=== PATIENT | male | born 1940 | race African-American/Black ===

== ENCOUNTER 2016-07-04 08:50 | Emergency (ER) | payer MEDICARE, MEDICAID ==
[~2016-07-04] VITALS: Ht 177.8 cm; Wt 80.0 kg
[~2016-07-04 08:50] MED LIST: CITA10TA9 PO; FAMO20TA8 PO; GALANTAMINE PO; GLIM2TAB2 PO; HYDR100T26 PO; LEVE500T19 PO; LOSA50TA20 PO; MEMA10TA11 PO; METO-293 PO; NIFE60TA64 PO; PLAVIX PO; RENAVITE PO; ZOLP5TAB8 PO
[2016-07-04] MEDS ORDERED: TETANUS, DIPHTHERIA, PERTUSSIS VAC/PF 0.5ML (>7YR OLD) IM ONE (09:15)
[2016-07-04 09:46] LABS: HEMATOCRIT. 34.6 % (42.0-52.0); HEMOGLOBIN. 11.5 g/dL (14.0-18.0); MEAN CORPUSCULAR HEMOGLOBIN 29.4 pg (28.0-32.0); MEAN CORPUSCULAR HGB CONC 33.2 g/dL (31.0-37.0); MEAN CORPUSCULAR VOLUME 88.3 fL (80.0-94.0); MEAN PLATELET VOLUME 8.2 fl (7.4-10.4); PLATELET 253 x1000/uL (130-400); RED BLOOD CELL COUNT 3.92 mill/uL (4.7-6.1); RED CELL DISTRIBUTION WIDTH 20.6 % (11.6-14.6)
[2016-07-04 09:51] LABS: INR 1.1; PROTHROMBIN TIME 11.9 sec
[2016-07-04 09:53] LABS: DIFFERENTIAL COMMENT 1
[2016-07-04 09:59] LABS: ALANINE AMINOTRANSFERASE 14 IU/L (13-61); ALBUMIN 3.6 g/dL (3.4-5.0); ANION GAP 19; CALCIUM 8.7 mg/dL (8.5-10.1); CARBON DIOXIDE 27 mEq/L (21-32); CHLORIDE 95 mEq/L (98-107); INDEX HEMOLYSI 4 (1-3); INDEX ICTERIC 1 (1-4); INDEX LIPEMIC 1 (1-3); UREA NITROGEN BLOOD 62 mg/dL (7-21); eGFR 8 mL/min (>60)
[2016-07-04 10:00] LABS: NT PRO B-TYPE NATRIURETIC PEP 3551 pg/mL (5-125); TROPONIN I 0.04 ng/mL (0.00-0.04)
[2016-07-04 10:28] LABS: ANISOCYTOSIS 2+; PLATELET ESTIMATE NORMAL
[2016-07-04 12:54] VITALS: BP 186/100
== END 2016-07-04 13:00 | disposition home or self-care (01) ==
LOC: ER 08:53
DX: S01.112A Laceration without foreign body of left eyelid and periocular area, initial encounter (principal); N18.6 End stage renal disease; I12.0 Hypertensive chronic kidney disease with stage 5 chronic kidney disease or end stage renal disease; E11.9 Type 2 diabetes mellitus without complications; J44.9 Chronic obstructive pulmonary disease, unspecified; Z86.73 Personal history of transient ischemic attack (TIA), and cerebral infarction without residual deficits; Z79.899 Other long term (current) drug therapy; Z99.2 Dependence on renal dialysis; W18.30XA Fall on same level, unspecified, initial encounter; Y93.89 Activity, other specified; Y99.8 Other external cause status; Y92.89 Other specified places as the place of occurrence of the external cause
CPT/HCPCS: 36415; 70450; 71010; 72125; 80053; 83880; 84484; 85025; 85610; 90471; 90715; 93005; 99285

== ENCOUNTER 2016-11-27 16:12 | Inpatient (IN) | payer MEDICARE, MEDICAID ==
[~2016-11-27] VITALS: Ht 188 cm; Wt 83.5 kg
[~2016-11-27 16:12] MED LIST changes: -MEMA10TA11 PO; +MEMA10TA2 PO
[2016-11-27 18:00] LABS: BASOPHILS % 1.2 % (0.0-2.0); EOSINOPHILS % 0.5 % (0.0-5.0); HEMATOCRIT. 33.7 % (42.0-52.0); HEMOGLOBIN. 11.3 g/dL (14.0-18.0); LYMPHOCYTES % 34.8 % (20.0-50.0); MEAN CORPUSCULAR HEMOGLOBIN 31.3 pg (28.0-32.0); MEAN CORPUSCULAR VOLUME 93.2 fL (80.0-94.0); MEAN PLATELET VOLUME 8.6 fl (7.4-10.4); MONOCYTES % 8.6 % (2.0-8.0); NEUTROPHILS % 54.9 % (40.0-76.0); PLATELET 234 x1000/uL (130-400); RED BLOOD CELL COUNT 3.62 mill/uL (4.7-6.1); RED CELL DISTRIBUTION WIDTH 20.5 % (11.6-14.6)
[2016-11-27 18:02] LABS: INR 1.3; PROTHROMBIN TIME 13.4 sec (9.4-11.6)
[2016-11-27 18:10] LABS: CARBON DIOXIDE 29 mEq/L (21-32); CHLORIDE 98 mEq/L (98-107)
[2016-11-27] MEDS ORDERED: HYDRALAZINE 20MG/ML VIAL IV ONE ×2 (18:45→21:30)
[2016-11-27 20:46] LABS: TROPONIN I 0.06 ng/mL (0.00-0.04)
[2016-11-27] MEDS ORDERED: AZITHROMYCIN 500 MG in DEXT 5% WATER 250 ML IV STA (21:20)
[2016-11-27] MEDS ORDERED: FUROSEMIDE 20MG/2ML VIAL IVP ONE (21:30)
[2016-11-27] MEDS ORDERED: CEFTRIAXONE 1 G PREMIX 50 ML IV ONE (21:30)
[2016-11-27] MEDS ORDERED: HYDROMORPHONE HCL/PF 2MG/ML CPJ IV PRN (22:45)
[2016-11-27] MEDS ORDERED: DOCUSATE SODIUM 100MG CAPSULE PO PRN (22:45)
[2016-11-27] MEDS ORDERED: NITROGLYCERIN OINT 1GM/INCH UDPKT TD ONE (22:45)
[2016-11-27] MEDS ORDERED: ACETAMINOPHEN 325MG TABLET PO PRN (22:45)
[2016-11-27] MEDS ORDERED: GUAIFENESIN 200MG/10ML SUGAR FREE UDC PO PRN (22:45)
[2016-11-27] MEDS: NITROGLYCERIN 0.4MG TABLET SL SL PRN ×2 (23:01→23:16)
[2016-11-27] MEDS ORDERED: ONDANSETRON HCL 4MG/2ML VIAL IV ONE (23:45)
[2016-11-28] VITALS (91 sets, daily range): BP systolic 99–251; BP diastolic 53–224
[2016-11-28 00:25] LABS: CLARITY URINE CLEAR (CLEAR); COLOR URINE YELLOW (YELLOW); GLUCOSE URINE NEGATIVE (NEGATIVE); KETONES URINE NEGATIVE (NEGATIVE); LEUKOCYTE ESTERASE URINE NEGATIVE (NEGATIVE); NITRITE URINE NEGATIVE (NEGATIVE); OCCULT BLOOD URINE NEGATIVE (NEGATIVE); PROTEIN URINE 3+ (NEGATIVE); SPECIFIC GRAVITY URINE 1.011 (1.005-1.030); UROBILINOGEN URINE 0.2 E.U./dL (0.2-1.0)
[2016-11-28] MEDS ORDERED: CITA10SO PO (00:26)
[2016-11-28] MEDS ORDERED: CITA10TA9 PO (00:26)
[2016-11-28] MEDS ORDERED: ZOLP5TAB8 PO (00:26)
[2016-11-28] MEDS ORDERED: NEBI10TA2 PO (00:26)
[2016-11-28 00:44] LABS: *AMPHETAMINES SCREEN URINE NEGATIVE (NEGATIVE); *BARBITURATES SCREEN URINE NEGATIVE (NEGATIVE); *BENZODIAZEPINES SCREEN URINE NEGATIVE (NEGATIVE); *COCAINE SCREEN URINE NEGATIVE (NEGATIVE); CANNABINOID URINE SCREEN PRESUMTIVE POSITIVE (NEGATIVE); METHADONE URINE SCREEN NEGATIVE (NEGATIVE); OPIATES URINE SCREEN NEGATIVE (NEGATIVE); PHENCYCLIDINE URINE SCREEN NEGATIVE (NEGATIVE)
[2016-11-28] MEDS ORDERED: LABETALOL 5MG/ML SYR 20 MG/4 ML SYRINGE IV SCH ×3 (01:00→01:30)
[2016-11-28] MEDS ORDERED: NITROPRUSSIDE 50 MG in DEXT 5% WATER 250 ML IV PRN (01:00)
[2016-11-28] MEDS: ONDANSETRON HCL 4MG/2ML VIAL IV PRN ×2 (01:33→08:02)
[2016-11-28] MEDS: NICARDIPINE 100 MG in SODIUM CHLORIDE 0.9% 60 ML IV PRN ×2 (01:54→13:05)
[2016-11-28] MEDS: LORAZEPAM 2MG/ML CPJ IV PRN ×3 (02:10→22:24)
[2016-11-28] MEDS ORDERED: VANCOMYCIN 1 G PREMIX 200 ML IV SCH (03:00)
[2016-11-28] MEDS: BLOOD SUGAR DIAGNOSTIC STRIP TEST SCH ×4 (05:43→21:34)
[2016-11-28 05:45] LABS: HEMATOCRIT. 31.2 % (42.0-52.0); HEMOGLOBIN. 10.6 g/dL (14.0-18.0); MEAN CORPUSCULAR HEMOGLOBIN 31.5 pg (28.0-32.0); MEAN CORPUSCULAR VOLUME 92.5 fL (80.0-94.0); MEAN PLATELET VOLUME 8.8 fl (7.4-10.4); PLATELET 226 x1000/uL (130-400); RED BLOOD CELL COUNT 3.38 mill/uL (4.7-6.1); RED CELL DISTRIBUTION WIDTH 19.8 % (11.6-14.6)
[2016-11-28] MEDS: METOCLOPRAMIDE HCL 10MG TABLET PO SCH ×2 (06:19→20:07)
[2016-11-28] MEDS: INSULIN LISPRO 100 UNITS/ML SUBCUT SCH ×4 (06:20→21:00)
[2016-11-28 06:58] LABS: TROPONIN I 0.05 ng/mL (0.00-0.04)
[2016-11-28 07:00] LABS: CREATINE KINASE MB FRACTION 2.6 ng/mL (0.5-3.6)
[2016-11-28 07:35] LABS: NUCLEATED RED BLOOD CELLS 2 /100 WBC; PLATELET ESTIMATE NORMAL
[2016-11-28] MEDS ORDERED: POTASSIUM CHLORIDE 20MEQ TABLET SR PO NR (07:45)
[2016-11-28] MEDS: NIFEDIPINE XL 60MG TAB PO SCH ×2 (08:03→08:09)
[2016-11-28] MEDS: LOSARTAN POTASSIUM 100 MG TABLET PO SCH ×2 (08:03→08:09)
[2016-11-28] MEDS: CLOPIDOGREL 75MG TABLET PO SCH (08:03)
[2016-11-28] MEDS: MEMANTINE HCL 5MG TABLET PO SCH (08:04)
[2016-11-28] MEDS: FAMOTIDINE 20MG TABLET PO SCH (08:04)
[2016-11-28] MEDS: HYDRALAZINE HCL 50MG TABLET PO SCH ×3 (08:30→22:06)
[2016-11-28] MEDS ORDERED: GLIMEPIRIDE 2MG TABLET PO NR (08:30)
[2016-11-28] MEDS: LEVETIRACETAM 500MG TABLET PO SCH ×2 (08:45→20:07)
[2016-11-28] MEDS: METOPROLOL TARTRATE 100MG TABLET PO SCH ×2 (08:45→20:08)
[2016-11-28] MEDS: GALANTAMINE HBR 8MG ER CAPSULE 24HR PO SCH (09:00)
[2016-11-28] MEDS ORDERED: LEVETIRACETAM 500MG TABLET PO SCH (09:00)
[2016-11-28] MEDS ORDERED: ENOXAPARIN 40MG/0.4ML SYR SUBCUT SCH (09:00)
[2016-11-28] MEDS ORDERED: GLIMEPIRIDE 2MG TABLET PO SCH (09:00)
[2016-11-28] MEDS: CITALOPRAM HYDROBROMIDE 10MG TABLET PO SCH (09:18)
[2016-11-28] MEDS ORDERED: VANCOMYCIN 1 G PREMIX 200 ML IV NR (17:00)
[2016-11-28] MEDS ORDERED: CEFTRIAXONE 1 G PREMIX 50 ML IV SCH (20:00)
[2016-11-28] MEDS: CEFTRIAXONE 1 G PREMIX 50 ML IV SCH (20:08)
[2016-11-28 21:14] LABS: CREATINE KINASE MB FRACTION 3.9 ng/mL (0.5-3.6); TROPONIN I 0.1 ng/mL (0.00-0.04)
[2016-11-28] MEDS: AZITHROMYCIN 500 MG in DEXT 5% WATER 250 ML IV SCH (21:35)
[2016-11-28] MEDS ORDERED: AZITHROMYCIN 500 MG in DEXT 5% WATER 250 ML IV SCH (23:00)
[2016-11-29] VITALS (96 sets, daily range): BP systolic 93–157; BP diastolic 48–117
[2016-11-29] MEDS: NICARDIPINE 100 MG in SODIUM CHLORIDE 0.9% 60 ML IV PRN (01:29)
[2016-11-29] MEDS: HYDRALAZINE HCL 50MG TABLET PO SCH (05:06)
[2016-11-29] MEDS: GLIMEPIRIDE 4MG TABLET PO SCH (06:05)
[2016-11-29] MEDS: BLOOD SUGAR DIAGNOSTIC STRIP TEST SCH ×4 (06:06→20:50)
[2016-11-29] MEDS: METOCLOPRAMIDE HCL 10MG TABLET PO SCH ×2 (06:06→20:39)
[2016-11-29] MEDS: INSULIN LISPRO 100 UNITS/ML SUBCUT SCH ×4 (06:06→20:51)
[2016-11-29 06:10] LABS: BASOPHILS % 0.3 % (0.0-2.0); EOSINOPHILS % 0.1 % (0.0-5.0); HEMATOCRIT. 33.5 % (42.0-52.0); HEMOGLOBIN. 11.1 g/dL (14.0-18.0); LYMPHOCYTES % 17.5 % (20.0-50.0); MEAN CORPUSCULAR VOLUME 93.5 fL (80.0-94.0); MEAN PLATELET VOLUME 8.9 fl (7.4-10.4); MONOCYTES % 7.2 % (2.0-8.0); NEUTROPHILS % 74.9 % (40.0-76.0); PLATELET 243 x1000/uL (130-400); RED BLOOD CELL COUNT 3.59 mill/uL (4.7-6.1)
[2016-11-29 06:42] LABS: PHOSPHORUS 2.3 mg/dL (2.5-4.9)
[2016-11-29] MEDS: ENOXAPARIN 30MG/0.3ML SYR SUBCUT SCH (08:08)
[2016-11-29] MEDS: METOPROLOL TARTRATE 100MG TABLET PO SCH ×2 (08:09→20:39)
[2016-11-29] MEDS: MEMANTINE HCL 5MG TABLET PO SCH (08:09)
[2016-11-29] MEDS: CITALOPRAM HYDROBROMIDE 10MG TABLET PO SCH (08:09)
[2016-11-29] MEDS: CLOPIDOGREL 75MG TABLET PO SCH (08:09)
[2016-11-29] MEDS: LOSARTAN POTASSIUM 100 MG TABLET PO SCH (08:10)
[2016-11-29] MEDS: LEVETIRACETAM 500MG TABLET PO SCH ×2 (08:10→21:39)
[2016-11-29] MEDS: FAMOTIDINE 20MG TABLET PO SCH (08:10)
[2016-11-29] MEDS: NIFEDIPINE XL 60MG TAB PO SCH (08:10)
[2016-11-29] MEDS ORDERED: LORAZEPAM 2MG/ML CPJ IV PRN (09:00)
[2016-11-29] MEDS ORDERED: NIFEDIPINE XL 30MG TAB PO NR (09:30)
[2016-11-29] MEDS: QUETIAPINE FUMARATE 25MG TABLET PO SCH ×2 (09:59→21:39)
[2016-11-29] MEDS: GALANTAMINE HBR 8MG ER CAPSULE 24HR PO SCH (10:41)
[2016-11-29 12:16] LABS: AMMONIA 27 uMol/L (<32)
[2016-11-29] MEDS: HYDRALAZINE HCL 100MG TABLET PO SCH ×2 (13:48→21:40)
[2016-11-29] MEDS: CEFTRIAXONE 1 G PREMIX 50 ML IV SCH (20:40)
[2016-11-29] MEDS: AZITHROMYCIN 500 MG in DEXT 5% WATER 250 ML IV SCH (21:40)
[2016-11-30] VITALS (45 sets, daily range): BP systolic 107–178; BP diastolic 58–90
[2016-11-30] MEDS: BLOOD SUGAR DIAGNOSTIC STRIP TEST SCH ×5 (05:30→20:44)
[2016-11-30 05:56] LABS: BASOPHILS % 0.8 % (0.0-2.0); EOSINOPHILS % 0.6 % (0.0-5.0); HEMATOCRIT. 36.2 % (42.0-52.0); LYMPHOCYTES % 26.4 % (20.0-50.0); MEAN CORPUSCULAR VOLUME 93.4 fL (80.0-94.0); MEAN PLATELET VOLUME 9.1 fl (7.4-10.4); MONOCYTES % 8.6 % (2.0-8.0); NEUTROPHILS % 63.6 % (40.0-76.0); PLATELET 275 x1000/uL (130-400); RED BLOOD CELL COUNT 3.87 mill/uL (4.7-6.1)
[2016-11-30] MEDS: METOCLOPRAMIDE HCL 10MG TABLET PO SCH ×2 (06:22→20:43)
[2016-11-30] MEDS: HYDRALAZINE HCL 100MG TABLET PO SCH ×3 (06:22→21:09)
[2016-11-30] MEDS: INSULIN LISPRO 100 UNITS/ML SUBCUT SCH ×4 (06:29→20:44)
[2016-11-30] MEDS: GLIMEPIRIDE 4MG TABLET PO SCH (07:21)
[2016-11-30] MEDS: LEVETIRACETAM 500MG TABLET PO SCH ×2 (08:03→20:43)
[2016-11-30] MEDS: ENOXAPARIN 30MG/0.3ML SYR SUBCUT SCH (08:03)
[2016-11-30] MEDS: MEMANTINE HCL 5MG TABLET PO SCH (08:04)
[2016-11-30] MEDS: QUETIAPINE FUMARATE 25MG TABLET PO SCH ×2 (08:04→20:43)
[2016-11-30] MEDS: FAMOTIDINE 20MG TABLET PO SCH (08:04)
[2016-11-30] MEDS: CITALOPRAM HYDROBROMIDE 10MG TABLET PO SCH (08:04)
[2016-11-30] MEDS: CLOPIDOGREL 75MG TABLET PO SCH (08:04)
[2016-11-30] MEDS: METOPROLOL TARTRATE 100MG TABLET PO SCH ×2 (09:00→20:43)
[2016-11-30] MEDS: NIFEDIPINE XL 90MG TAB PO SCH (09:00)
[2016-11-30] MEDS: LOSARTAN POTASSIUM 100 MG TABLET PO SCH (09:00)
[2016-11-30] MEDS: GALANTAMINE HBR 8MG ER CAPSULE 24HR PO SCH (15:37)
[2016-11-30] MEDS ORDERED: VANCOMYCIN 500 MG PREMIX 100 ML IV NR (17:00)
[2016-11-30] MEDS: CLONIDINE 0.1MG TABLET PO PRN (20:43)
[2016-11-30] MEDS: AZITHROMYCIN 500 MG in DEXT 5% WATER 250 ML IV SCH (20:56)
[2016-11-30] MEDS: CEFTRIAXONE 1 G PREMIX 50 ML IV SCH (21:10)
[2016-12-01] VITALS (8 sets, daily range): BP systolic 125–215; BP diastolic 64–102
[2016-12-01] MEDS: HYDRALAZINE HCL 100MG TABLET PO SCH ×3 (06:05→20:32)
[2016-12-01] MEDS: DEXTROSE 50% WATER 50ML SYRINGE IV PRN (06:06)
[2016-12-01 06:54] LABS: BASOPHILS % 0.6 % (0.0-2.0); EOSINOPHILS % 0.7 % (0.0-5.0); HEMATOCRIT. 37.9 % (42.0-52.0); HEMOGLOBIN. 12.7 g/dL (14.0-18.0); LYMPHOCYTES % 24.4 % (20.0-50.0); MEAN CORPUSCULAR HEMOGLOBIN 31.4 pg (28.0-32.0); MEAN CORPUSCULAR VOLUME 93.9 fL (80.0-94.0); MEAN PLATELET VOLUME 8.1 fl (7.4-10.4); MONOCYTES % 12.6 % (2.0-8.0); NEUTROPHILS % 61.7 % (40.0-76.0); PLATELET 245 x1000/uL (130-400); RED BLOOD CELL COUNT 4.04 mill/uL (4.7-6.1); RED CELL DISTRIBUTION WIDTH 21.9 % (11.6-14.6)
[2016-12-01] MEDS ORDERED: GLIMEPIRIDE 2MG TABLET PO SCH (07:00)
[2016-12-01] MEDS: BLOOD SUGAR DIAGNOSTIC STRIP TEST SCH ×4 (07:40→20:32)
[2016-12-01] MEDS: INSULIN LISPRO 100 UNITS/ML SUBCUT SCH ×4 (07:40→20:32)
[2016-12-01] MEDS: LOSARTAN POTASSIUM 100 MG TABLET PO SCH (08:19)
[2016-12-01] MEDS: NIFEDIPINE XL 90MG TAB PO SCH (08:19)
[2016-12-01] MEDS: FAMOTIDINE 20MG TABLET PO SCH (08:19)
[2016-12-01] MEDS: METOCLOPRAMIDE HCL 10MG TABLET PO SCH ×2 (08:20→20:28)
[2016-12-01] MEDS: CLOPIDOGREL 75MG TABLET PO SCH (08:20)
[2016-12-01] MEDS: QUETIAPINE FUMARATE 25MG TABLET PO SCH ×2 (08:20→20:29)
[2016-12-01] MEDS: LEVETIRACETAM 500MG TABLET PO SCH ×2 (08:20→20:28)
[2016-12-01] MEDS: METOPROLOL TARTRATE 100MG TABLET PO SCH ×2 (08:20→20:29)
[2016-12-01] MEDS: ENOXAPARIN 30MG/0.3ML SYR SUBCUT SCH (08:21)
[2016-12-01] MEDS: GALANTAMINE HBR 8MG ER CAPSULE 24HR PO SCH (08:26)
[2016-12-01] MEDS: CITALOPRAM HYDROBROMIDE 10MG TABLET PO SCH (08:26)
[2016-12-01] MEDS: MEMANTINE HCL 5MG TABLET PO SCH (12:24)
[2016-12-01] MEDS: CEFTRIAXONE 1 G PREMIX 50 ML IV SCH (20:28)
[2016-12-01] MEDS: ZOLPIDEM TARTRATE 5MG TABLET PO SCH (20:35)
[2016-12-01] MEDS: AZITHROMYCIN 500 MG in DEXT 5% WATER 250 ML IV SCH (21:13)
[2016-12-02] VITALS: BP 115/59
[2016-12-02] MEDS: DEXTROSE 50% WATER 50ML SYRINGE IV PRN (02:43)
[2016-12-02 04:00] VITALS: BP 177/79
[2016-12-02] MEDS: HYDRALAZINE HCL 100MG TABLET PO SCH ×3 (05:51→20:20)
[2016-12-02] MEDS: BLOOD SUGAR DIAGNOSTIC STRIP TEST SCH ×4 (05:51→20:21)
[2016-12-02] MEDS: INSULIN LISPRO 100 UNITS/ML SUBCUT SCH ×4 (07:15→20:21)
[2016-12-02 07:25] LABS: EOSINOPHILS % 3.3 % (0.0-5.0); HEMATOCRIT. 37.3 % (42.0-52.0); HEMOGLOBIN. 12.4 g/dL (14.0-18.0); LYMPHOCYTES % 31.4 % (20.0-50.0); MEAN CORPUSCULAR HEMOGLOBIN 31.5 pg (28.0-32.0); MEAN CORPUSCULAR VOLUME 94.6 fL (80.0-94.0); MEAN PLATELET VOLUME 8.1 fl (7.4-10.4); MONOCYTES % 11.4 % (2.0-8.0); NEUTROPHILS % 52.9 % (40.0-76.0); PLATELET 226 x1000/uL (130-400); RED BLOOD CELL COUNT 3.95 mill/uL (4.7-6.1); RED CELL DISTRIBUTION WIDTH 21.5 % (11.6-14.6)
[2016-12-02 08:00] VITALS: BP 163/77
[2016-12-02] MEDS: QUETIAPINE FUMARATE 25MG TABLET PO SCH ×2 (08:31→20:20)
[2016-12-02] MEDS: CLOPIDOGREL 75MG TABLET PO SCH (08:31)
[2016-12-02] MEDS: METOCLOPRAMIDE HCL 10MG TABLET PO SCH ×2 (08:31→20:20)
[2016-12-02] MEDS: LEVETIRACETAM 500MG TABLET PO SCH ×2 (08:31→20:20)
[2016-12-02] MEDS: GLIMEPIRIDE 1MG TABLET PO SCH (08:32)
[2016-12-02] MEDS: NIFEDIPINE XL 90MG TAB PO SCH (08:32)
[2016-12-02] MEDS: MEMANTINE HCL 5MG TABLET PO SCH (08:33)
[2016-12-02] MEDS: LOSARTAN POTASSIUM 100 MG TABLET PO SCH (08:44)
[2016-12-02] MEDS: METOPROLOL TARTRATE 100MG TABLET PO SCH ×2 (08:44→20:20)
[2016-12-02] MEDS: ENOXAPARIN 30MG/0.3ML SYR SUBCUT SCH (08:49)
[2016-12-02] MEDS: CITALOPRAM HYDROBROMIDE 10MG TABLET PO SCH (10:02)
[2016-12-02] MEDS: GALANTAMINE HBR 8MG ER CAPSULE 24HR PO SCH (10:02)
[2016-12-02] MEDS: FAMOTIDINE 20MG TABLET PO SCH (10:02)
[2016-12-02] MEDS: AZITHROMYCIN 500 MG TABLET PO SCH (10:02)
[2016-12-02 12:00] VITALS: BP 130/70
[2016-12-02 16:00] VITALS: BP 122/68
[2016-12-02] MEDS ORDERED: VANCOMYCIN 1 G PREMIX 200 ML IV NR (17:00)
[2016-12-02] MEDS: ZOLPIDEM TARTRATE 5MG TABLET PO SCH (17:00)
[2016-12-02 20:00] VITALS: BP 164/69
[2016-12-02] MEDS: CEFTRIAXONE 1 G PREMIX 50 ML IV SCH (20:20)
[2016-12-03] VITALS: BP 146/70
[2016-12-03 04:00] VITALS: BP 152/69
[2016-12-03] MEDS: HYDRALAZINE HCL 100MG TABLET PO SCH ×2 (06:13→14:21)
[2016-12-03 07:39] LABS: BASOPHILS % 0.8 % (0.0-2.0); EOSINOPHILS % 3.6 % (0.0-5.0); HEMATOCRIT. 36.9 % (42.0-52.0); HEMOGLOBIN. 12.3 g/dL (14.0-18.0); LYMPHOCYTES % 30.2 % (20.0-50.0); MEAN CORPUSCULAR HEMOGLOBIN 31.5 pg (28.0-32.0); MEAN CORPUSCULAR VOLUME 94.7 fL (80.0-94.0); MONOCYTES % 11.9 % (2.0-8.0); NEUTROPHILS % 53.5 % (40.0-76.0); PLATELET 188 x1000/uL (130-400); RED CELL DISTRIBUTION WIDTH 21.6 % (11.6-14.6)
[2016-12-03] MEDS: INSULIN LISPRO 100 UNITS/ML SUBCUT SCH ×2 (07:56→13:10)
[2016-12-03] MEDS: BLOOD SUGAR DIAGNOSTIC STRIP TEST SCH ×2 (07:56→12:40)
[2016-12-03 08:00] VITALS: BP 144/66
[2016-12-03] MEDS: CLOPIDOGREL 75MG TABLET PO SCH (10:17)
[2016-12-03] MEDS: GALANTAMINE HBR 8MG ER CAPSULE 24HR PO SCH (10:18)
[2016-12-03] MEDS: LEVETIRACETAM 500MG TABLET PO SCH (10:18)
[2016-12-03] MEDS: MEMANTINE HCL 5MG TABLET PO SCH (10:18)
[2016-12-03] MEDS: FAMOTIDINE 20MG TABLET PO SCH (10:18)
[2016-12-03] MEDS: METOPROLOL TARTRATE 100MG TABLET PO SCH (10:18)
[2016-12-03] MEDS: METOCLOPRAMIDE HCL 10MG TABLET PO SCH (10:18)
[2016-12-03] MEDS: NIFEDIPINE XL 90MG TAB PO SCH (10:19)
[2016-12-03] MEDS: GLIMEPIRIDE 1MG TABLET PO SCH (10:19)
[2016-12-03] MEDS: QUETIAPINE FUMARATE 25MG TABLET PO SCH (10:19)
[2016-12-03] MEDS: AZITHROMYCIN 500 MG TABLET PO SCH (10:20)
[2016-12-03] MEDS: CITALOPRAM HYDROBROMIDE 10MG TABLET PO SCH (10:20)
[2016-12-03] MEDS: LOSARTAN POTASSIUM 100 MG TABLET PO SCH (10:20)
[2016-12-03] MEDS: ENOXAPARIN 30MG/0.3ML SYR SUBCUT SCH (10:23)
[2016-12-03 12:00] VITALS: BP 161/76
[2016-12-03] MEDS: CLONIDINE 0.1MG TABLET PO PRN (14:21)
[2016-12-03] MEDS ORDERED: DOCUSATE SODIUM 250MG CAPSULE PO PRN (15:08)
[2016-12-03 16:00] VITALS: BP 150/79
[2016-12-03 16:28] VITALS: BP 150/79
== END 2016-12-03 17:15 | disposition home or self-care (01) | DRG 177 ==
LOC: ER 16:48 → 6WST 22:12 → ENRESERV 22:33 → MICUSO 11-28 01:13 → 7WST 11-30 16:32
PROVIDERS: ADMIT Internal Medicine Geriatric Medicine; ATTEND Internal Medicine Geriatric Medicine
PROC: 5A1D60Z (ICD-10-PCS; principal; 2016-11-28)
DX: J69.0 Pneumonitis due to inhalation of food and vomit (principal); I50.23 Acute on chronic systolic (congestive) heart failure; G92 Toxic encephalopathy; N18.6 End stage renal disease; I13.2 Hypertensive heart and chronic kidney disease with heart failure and with stage 5 chronic kidney disease, or end stage renal disease; F01.51 Vascular dementia, unspecified severity, with behavioral disturbance; D63.8 Anemia in other chronic diseases classified elsewhere; E11.22 Type 2 diabetes mellitus with diabetic chronic kidney disease; E87.6 Hypokalemia; A08.4 Viral intestinal infection, unspecified; F12.90 Cannabis use, unspecified, uncomplicated; J44.9 Chronic obstructive pulmonary disease, unspecified; B95.62 Methicillin resistant Staphylococcus aureus infection as the cause of diseases classified elsewhere; F32.9 Major depressive disorder, single episode, unspecified; F41.1 Generalized anxiety disorder; I71.4 Abdominal aortic aneurysm, without rupture; K57.90 Diverticulosis of intestine, part unspecified, without perforation or abscess without bleeding; M19.90 Unspecified osteoarthritis, unspecified site; R63.0 Anorexia; E78.5 Hyperlipidemia, unspecified; G40.909 Epilepsy, unspecified, not intractable, without status epilepticus; I16.0 Hypertensive urgency; E11.49 Type 2 diabetes mellitus with other diabetic neurological complication; I25.10 Atherosclerotic heart disease of native coronary artery without angina pectoris; M81.0 Age-related osteoporosis without current pathological fracture; Z82.49 Family history of ischemic heart disease and other diseases of the circulatory system; Z86.19 Personal history of other infectious and parasitic diseases; Z87.01 Personal history of pneumonia (recurrent); Z99.2 Dependence on renal dialysis; Z87.440 Personal history of urinary (tract) infections
CPT/HCPCS: 36415; 70450; 71010; 80048; 80053; 80061; 80202; 80305; 81001; 82140; 82553; 82962; 83036; 83735; 83880; 84100; 84484; 85025; 85610; 87040; 87086; 87493; 92610; 93005; 93306; 93970; 96365; 96375; 96376; 97112; 97116; 97162; 97530; 99285; J0360; J0456; J0696; J1170; J1650; J1815; J1940; J2060; J2405; J3370; J3490; J7030; J7050; J7060; J8597

== ENCOUNTER 2016-12-27 12:50 | Inpatient (IN) | payer MEDICARE, MEDICAID ==
[~2016-12-27] VITALS: Ht 180.3 cm; Wt 83.7 kg
[~2016-12-27 12:50] MED LIST changes: +NEBI10TA2 PO
[2016-12-27] MEDS ORDERED: ONDANSETRON HCL 4MG/2ML VIAL IV STA (13:58)
[2016-12-27 14:26] LABS: BASOPHILS % 1.1 % (0.0-2.0); EOSINOPHILS % 0.7 % (0.0-5.0); HEMATOCRIT. 31.3 % (42.0-52.0); HEMOGLOBIN. 10.7 g/dL (14.0-18.0); LYMPHOCYTES % 22.2 % (20.0-50.0); MEAN CORPUSCULAR HEMOGLOBIN 32.7 pg (28.0-32.0); MEAN CORPUSCULAR VOLUME 95.1 fL (80.0-94.0); MEAN PLATELET VOLUME 8.3 fl (7.4-10.4); MONOCYTES % 10.5 % (2.0-8.0); NEUTROPHILS % 65.5 % (40.0-76.0); PLATELET 220 x1000/uL (130-400); RED BLOOD CELL COUNT 3.28 mill/uL (4.7-6.1)
[2016-12-27 14:28] LABS: CARBON DIOXIDE 29 mEq/L (21-32); CHLORIDE 99 mEq/L (98-107)
[2016-12-27 14:30] LABS: INR 1.2; PARTIAL THROMBOPLASTIN TIME 26.5 sec (23.4-31.0)
[2016-12-27 14:41] LABS: PHOSPHORUS 2.1 mg/dL (2.5-4.9)
[2016-12-27 14:43] LABS: TROPONIN I 0.07 ng/mL (0.00-0.04)
[2016-12-27] MEDS ORDERED: LABETALOL 5MG/ML SYR 20 MG/4 ML SYRINGE IV ONE (15:15)
[2016-12-27] MEDS ORDERED: POTASSIUM CHLORIDE 20MEQ TABLET SR PO ONE (17:00)
[2016-12-27] MEDS ORDERED: HYDRALAZINE 20MG/ML VIAL IV ONE (17:45)
[2016-12-27 20:35] VITALS: BP 212/84
[2016-12-27] MEDS ORDERED: HYDRALAZINE 20MG/ML VIAL IV PRN (21:45)
[2016-12-27] MEDS ORDERED: GUAIFENESIN 200MG/10ML SUGAR FREE UDC PO PRN (21:45)
[2016-12-27] MEDS ORDERED: DIPHENHYDRAMINE 50MG/ML VIAL IV PRN (21:45)
[2016-12-27] MEDS ORDERED: HYDROMORPHONE HCL/PF 2MG/ML CPJ IV PRN (21:45)
[2016-12-27] MEDS ORDERED: ACETAMINOPHEN 325MG TABLET PO PRN (21:45)
[2016-12-27] MEDS ORDERED: ONDANSETRON HCL 4MG/2ML VIAL IV PRN (21:45)
[2016-12-27] MEDS ORDERED: DOCUSATE SODIUM 100MG CAPSULE PO PRN (21:45)
[2016-12-27] MEDS: ENOXAPARIN 30MG/0.3ML SYR SUBCUT SCH (22:15)
[2016-12-27] MEDS: LEVETIRACETAM 500MG TABLET PO SCH (22:16)
[2016-12-27] MEDS: CLONIDINE 0.1MG TABLET PO PRN (22:16)
[2016-12-27] MEDS: HYDRALAZINE HCL 100MG TABLET PO SCH (22:16)
[2016-12-27] MEDS: ZOLPIDEM TARTRATE 5MG TABLET PO PRN (22:16)
[2016-12-28] VITALS (7 sets, daily range): BP systolic 104–212; BP diastolic 59–98
[2016-12-28] MEDS ORDERED: DEXTROSE 50% WATER 50ML SYRINGE IV PRN (00:15)
[2016-12-28 00:28] LABS: CREATINE KINASE MB FRACTION 1.3 ng/mL (0.5-3.6); TROPONIN I 0.09 ng/mL (0.00-0.04)
[2016-12-28] MEDS: METOCLOPRAMIDE HCL 5MG TABLET PO SCH ×4 (00:53→17:59)
[2016-12-28] MEDS: IPRATROPIUM/ALBUTEROL 0.5-3(2.5)MG/3ML NEB HHN SCH ×6 (00:55→20:54)
[2016-12-28] MEDS: HYDRALAZINE HCL 100MG TABLET PO SCH ×3 (06:00→22:00)
[2016-12-28] MEDS: BLOOD SUGAR DIAGNOSTIC STRIP TEST SCH ×4 (06:24→21:56)
[2016-12-28] MEDS: INSULIN LISPRO 100 UNITS/ML SUBCUT SCH ×4 (06:24→21:00)
[2016-12-28 06:43] LABS: BASOPHILS % 0.9 % (0.0-2.0); EOSINOPHILS % 1.7 % (0.0-5.0); HEMATOCRIT. 30.7 % (42.0-52.0); HEMOGLOBIN. 10.4 g/dL (14.0-18.0); LYMPHOCYTES % 38.7 % (20.0-50.0); MEAN CORPUSCULAR HEMOGLOBIN 32.3 pg (28.0-32.0); MEAN CORPUSCULAR VOLUME 95.3 fL (80.0-94.0); MEAN PLATELET VOLUME 8.6 fl (7.4-10.4); MONOCYTES % 11.4 % (2.0-8.0); NEUTROPHILS % 47.3 % (40.0-76.0); PLATELET 217 x1000/uL (130-400); RED BLOOD CELL COUNT 3.22 mill/uL (4.7-6.1); RED CELL DISTRIBUTION WIDTH 18.1 % (11.6-14.6)
[2016-12-28 07:05] LABS: CARBON DIOXIDE 30 mEq/L (21-32); CHLORIDE 100 mEq/L (98-107); CREATINE KINASE MB FRACTION 1.3 ng/mL (0.5-3.6); TROPONIN I 0.09 ng/mL (0.00-0.04)
[2016-12-28 07:23] LABS: CLARITY URINE CLEAR (CLEAR); COLOR URINE YELLOW (YELLOW); GLUCOSE URINE NEGATIVE (NEGATIVE); KETONES URINE NEGATIVE (NEGATIVE); LEUKOCYTE ESTERASE URINE NEGATIVE (NEGATIVE); NITRITE URINE NEGATIVE (NEGATIVE); OCCULT BLOOD URINE NEGATIVE (NEGATIVE); PH URINE 8.5 (4.5-8.0); PROTEIN URINE 3+ (NEGATIVE); SPECIFIC GRAVITY URINE 1.013 (1.005-1.030); UROBILINOGEN URINE 0.2 E.U./dL (0.2-1.0)
[2016-12-28 08:42] LABS: *AMPHETAMINES SCREEN URINE NEGATIVE (NEGATIVE); *BARBITURATES SCREEN URINE NEGATIVE (NEGATIVE); *BENZODIAZEPINES SCREEN URINE NEGATIVE (NEGATIVE); *COCAINE SCREEN URINE NEGATIVE (NEGATIVE); CANNABINOID URINE SCREEN PRESUMTIVE POSITIVE (NEGATIVE); METHADONE URINE SCREEN NEGATIVE (NEGATIVE); OPIATES URINE SCREEN NEGATIVE (NEGATIVE); PHENCYCLIDINE URINE SCREEN NEGATIVE (NEGATIVE)
[2016-12-28] MEDS ORDERED: POTASSIUM CHLORIDE 20MEQ TABLET SR PO NR (10:45)
[2016-12-28] MEDS: SEVELAMER CARBONATE 800 MG TABLET PO SCH ×3 (10:47→17:59)
[2016-12-28] MEDS: LOSARTAN POTASSIUM 50 MG TABLET PO SCH (10:48)
[2016-12-28] MEDS: CITALOPRAM HYDROBROMIDE 10MG TABLET PO SCH (10:48)
[2016-12-28] MEDS: MEMANTINE HCL 5MG TABLET PO SCH (10:48)
[2016-12-28] MEDS: LEVETIRACETAM 500MG TABLET PO SCH ×2 (10:48→17:59)
[2016-12-28] MEDS: FAMOTIDINE 20MG TABLET PO SCH (10:49)
[2016-12-28] MEDS: NIFEDIPINE XL 90MG TAB PO SCH (10:49)
[2016-12-28] MEDS: GALANTAMINE HBR 8MG ER CAPSULE 24HR PO SCH (10:50)
[2016-12-28] MEDS: NEBIVOLOL HCL 5 MG TABLET PO SCH (12:41)
[2016-12-28] MEDS: ENOXAPARIN 30MG/0.3ML SYR SUBCUT SCH (22:02)
[2016-12-28] MEDS: ZOLPIDEM TARTRATE 5MG TABLET PO PRN (22:02)
[2016-12-29] VITALS: BP 106/60
[2016-12-29] MEDS: IPRATROPIUM/ALBUTEROL 0.5-3(2.5)MG/3ML NEB HHN SCH ×6 (00:40→23:55)
[2016-12-29] MEDS: METOCLOPRAMIDE HCL 5MG TABLET PO SCH ×5 (00:59→18:20)
[2016-12-29 04:00] VITALS: BP 128/72
[2016-12-29] MEDS: HYDRALAZINE HCL 100MG TABLET PO SCH ×3 (05:41→21:44)
[2016-12-29] MEDS: BLOOD SUGAR DIAGNOSTIC STRIP TEST SCH ×5 (05:45→21:45)
[2016-12-29] MEDS: INSULIN LISPRO 100 UNITS/ML SUBCUT SCH ×5 (07:29→21:00)
[2016-12-29 08:00] VITALS: BP 119/71
[2016-12-29] MEDS: SEVELAMER CARBONATE 800 MG TABLET PO SCH ×5 (08:10→18:20)
[2016-12-29] MEDS: CITALOPRAM HYDROBROMIDE 10MG TABLET PO SCH ×2 (08:52→09:00)
[2016-12-29] MEDS: LOSARTAN POTASSIUM 50 MG TABLET PO SCH ×2 (08:52→09:00)
[2016-12-29] MEDS: MEMANTINE HCL 5MG TABLET PO SCH ×2 (08:53→09:00)
[2016-12-29] MEDS: NEBIVOLOL HCL 5 MG TABLET PO SCH ×2 (08:53→09:00)
[2016-12-29] MEDS: LEVETIRACETAM 500MG TABLET PO SCH ×4 (08:53→18:20)
[2016-12-29] MEDS: GALANTAMINE HBR 8MG ER CAPSULE 24HR PO SCH ×2 (08:53→09:00)
[2016-12-29] MEDS: NIFEDIPINE XL 90MG TAB PO SCH ×2 (08:54→09:00)
[2016-12-29] MEDS: FAMOTIDINE 20MG TABLET PO SCH ×2 (08:54→09:00)
[2016-12-29 12:00] VITALS: BP 137/71
[2016-12-29] MEDS ORDERED: SODIUM CHLORIDE 0.9% 10ML VIAL ONE (12:16)
[2016-12-29] MEDS ORDERED: SIMETHICONE 40 MG/0.6 ML 30ML ONE ×2 (12:16→13:26)
[2016-12-29] MEDS ORDERED: BARIUM SULFATE 450ML ORAL SUSP ONE (12:17)
[2016-12-29 16:00] VITALS: BP 154/74
[2016-12-29] MEDS ORDERED: MIDAZOLAM HCL 5 MG/5 ML VIAL ONE (17:09)
[2016-12-29] MEDS ORDERED: MIDAZOLAM HCL 5 MG/5 ML VIAL IV PRN (17:12)
[2016-12-29] MEDS ORDERED: FENTANYL CITRATE/PF 50MCG/ML 2ML VIAL IV PRN (17:14)
[2016-12-29] MEDS ORDERED: FENTANYL CITRATE/PF 50MCG/ML 2ML VIAL ONE (17:17)
[2016-12-29] MEDS: CLONIDINE 0.1MG TABLET PO PRN (18:21)
[2016-12-29 20:12] VITALS: BP 148/68
[2016-12-29] MEDS: ENOXAPARIN 30MG/0.3ML SYR SUBCUT SCH (21:44)
[2016-12-30 00:07] VITALS: BP 139/58
[2016-12-30] MEDS: METOCLOPRAMIDE HCL 5MG TABLET PO SCH ×2 (00:47→12:00)
[2016-12-30] MEDS: BLOOD SUGAR DIAGNOSTIC STRIP TEST SCH ×2 (07:40→12:56)
[2016-12-30 08:00] VITALS: BP 162/83
[2016-12-30] MEDS: INSULIN LISPRO 100 UNITS/ML SUBCUT SCH ×2 (08:10→13:20)
[2016-12-30] MEDS: SEVELAMER CARBONATE 800 MG TABLET PO SCH ×2 (08:10→13:20)
[2016-12-30] MEDS: NIFEDIPINE XL 90MG TAB PO SCH (09:36)
[2016-12-30] MEDS: CITALOPRAM HYDROBROMIDE 10MG TABLET PO SCH (09:36)
[2016-12-30] MEDS: LEVETIRACETAM 500MG TABLET PO SCH (09:36)
[2016-12-30] MEDS: LOSARTAN POTASSIUM 50 MG TABLET PO SCH (09:36)
[2016-12-30] MEDS: MEMANTINE HCL 5MG TABLET PO SCH (09:36)
[2016-12-30] MEDS: NEBIVOLOL HCL 5 MG TABLET PO SCH (09:36)
[2016-12-30] MEDS: GALANTAMINE HBR 8MG ER CAPSULE 24HR PO SCH (09:36)
[2016-12-30] MEDS: FAMOTIDINE 20MG TABLET PO SCH (09:36)
[2016-12-30 09:59] LABS: BASOPHILS % 0.7 % (0.0-2.0); EOSINOPHILS % 2.4 % (0.0-5.0); HEMATOCRIT. 31.6 % (42.0-52.0); HEMOGLOBIN. 10.6 g/dL (14.0-18.0); MEAN CORPUSCULAR HEMOGLOBIN 32.3 pg (28.0-32.0); MEAN CORPUSCULAR VOLUME 95.9 fL (80.0-94.0); MEAN PLATELET VOLUME 9.1 fl (7.4-10.4); NEUTROPHILS % 49.9 % (40.0-76.0); PLATELET 203 x1000/uL (130-400); RED BLOOD CELL COUNT 3.29 mill/uL (4.7-6.1); RED CELL DISTRIBUTION WIDTH 18.3 % (11.6-14.6)
[2016-12-30 10:16] VITALS: BP 142/67
[2016-12-30] MEDS: IPRATROPIUM/ALBUTEROL 0.5-3(2.5)MG/3ML NEB HHN SCH ×3 (10:20→17:10)
[2016-12-30 12:00] VITALS: BP 162/77
[2016-12-30] MEDS: HYDRALAZINE HCL 100MG TABLET PO SCH (13:21)
[2016-12-30 16:00] VITALS: BP 121/67
== END 2016-12-30 18:00 | disposition home or self-care (01) | DRG 682 ==
LOC: ER 14:15 → 7WST 15:39 → EDBEDREQ 15:43 → EDBEDREQTM 15:43 → ENRESERV 18:52 → 7WST 12-28 02:50
PROVIDERS: ADMIT Internal Medicine Geriatric Medicine; ATTEND Internal Medicine Geriatric Medicine
PROC: 0DB68ZX Excision of Stomach, Via Natural or Artificial Opening Endoscopic, Diagnostic (ICD-10-PCS; principal; 2016-12-29 16:00)
DX: I13.11 Hypertensive heart and chronic kidney disease without heart failure, with stage 5 chronic kidney disease, or end stage renal disease (principal); N18.6 End stage renal disease; E11.22 Type 2 diabetes mellitus with diabetic chronic kidney disease; E11.65 Type 2 diabetes mellitus with hyperglycemia; E44.0 Moderate protein-calorie malnutrition; R64 Cachexia; K31.84 Gastroparesis; E11.43 Type 2 diabetes mellitus with diabetic autonomic (poly)neuropathy; E87.5 Hyperkalemia; N39.0 Urinary tract infection, site not specified; R13.10 Dysphagia, unspecified; K52.9 Noninfective gastroenteritis and colitis, unspecified; D50.9 Iron deficiency anemia, unspecified; F17.200 Nicotine dependence, unspecified, uncomplicated; E87.6 Hypokalemia; F01.50 Vascular dementia, unspecified severity, without behavioral disturbance, psychotic disturbance, mood disturbance, and anxiety; G40.909 Epilepsy, unspecified, not intractable, without status epilepticus; I16.0 Hypertensive urgency; I25.10 Atherosclerotic heart disease of native coronary artery without angina pectoris; J44.9 Chronic obstructive pulmonary disease, unspecified; K29.60 Other gastritis without bleeding; K31.7 Polyp of stomach and duodenum; K44.9 Diaphragmatic hernia without obstruction or gangrene; M81.0 Age-related osteoporosis without current pathological fracture; Z86.73 Personal history of transient ischemic attack (TIA), and cerebral infarction without residual deficits; Z99.2 Dependence on renal dialysis; Z91.81 History of falling; Z68.25 Body mass index [BMI] 25.0-25.9, adult
CPT/HCPCS: 36415; 74022; 74220; 80048; 80053; 80305; 81001; 82553; 82962; 83036; 83690; 83735; 84100; 84443; 84484; 85025; 85610; 85730; 87086; 88305; 88312; 88313; 93005; 94640; 96374; 96375; 99291; A4216; J0360; J1170; J1200; J1650; J1815; J2250; J2405; J3010; J3490; J7030; J7620; J8597

== ENCOUNTER 2017-04-28 15:01 | Inpatient (IN) | payer MEDICARE, MEDICAID ==
[~2017-04-28] VITALS: Ht 190.5 cm; Wt 67.6 kg
[2017-04-28] MEDS ORDERED: SODIUM CHLORIDE 0.9% 1,000 ML IV ONE (15:10)
[2017-04-28] MEDS ORDERED: KETOROLAC 30MG/ML VIAL IV STA (15:10)
[2017-04-28] MEDS ORDERED: ONDANSETRON HCL 4MG/2ML VIAL IV STA (15:10)
[2017-04-28] MEDS ORDERED: FAMOTIDINE 20MG/2ML VIAL IV STA (15:10)
[2017-04-28 15:28] LABS: BASOPHILS % 0.5 % (0.0-2.0); EOSINOPHILS % 0.2 % (0.0-5.0); HEMATOCRIT. 29.7 % (42.0-52.0); HEMOGLOBIN. 10.2 g/dL (14.0-18.0); LYMPHOCYTES % 6.7 % (20.0-50.0); MEAN CORPUSCULAR HEMOGLOBIN 33.9 pg (28.0-32.0); MEAN CORPUSCULAR VOLUME 98.6 fL (80.0-94.0); MONOCYTES % 3.9 % (2.0-8.0); NEUTROPHILS % 88.7 % (40.0-76.0); PLATELET 198 x1000/uL (130-400); RED BLOOD CELL COUNT 3.01 mill/uL (4.7-6.1); RED CELL DISTRIBUTION WIDTH 16.4 % (11.6-14.6)
[2017-04-28 15:35] LABS: CHLORIDE 98 mEq/L (98-107)
[2017-04-28 15:36] LABS: INR 1.2
[2017-04-28] MEDS ORDERED: METOCLOPRAMIDE HCL 10MG TABLET PO ONE (16:00)
[2017-04-28] MEDS: METOCLOPRAMIDE HCL 10MG/2ML VIAL IV ONE ×2 (16:14→16:15)
[2017-04-28] MEDS ORDERED: MORPHINE SULFATE 4 MG/ML CPJ (NOT FOR IM USE) IV ONE (16:30)
[2017-04-28 16:54] LABS: BG BASE EXCESS -2.1 mmol/L (-2.0-2.0); BG CARBOXYHEMOGLOBIN 0.3 % (0.5-1.5); BG DEOXYHEMOGLOBIN 3.2 % (0.0-5.0); BG HCO3 ACT 19.5 mmol/L (22.0-26.0); BG METHEMOGLOBIN 0.4 % (0.0-1.5); BG OXYGEN SATURATION 96.8 % (92.0-98.5); BG OXYHEMOGLOBIN 96.1 % (94.0-97.0); BG PCO2 24.1 mmHg (35.0-45.0); BG PH 7.525 (7.350-7.450); BG PO2 90.1 mmHg (75.0-100.0); BG SAMPLE SITE LEFT RADIAL; BG TOTAL HEMOGLOBIN 10.8 g/dL (12.0-18.0); BG VENT MODE ROOM AIR
[2017-04-28] MEDS ORDERED: ACETAMINOPHEN 325MG TABLET PO PRN (21:00)
[2017-04-28] MEDS ORDERED: IPRATROPIUM/ALBUTEROL 0.5-3(2.5)MG/3ML NEB INH PRN (21:00)
[2017-04-28] MEDS ORDERED: ONDANSETRON HCL 4MG/2ML VIAL IV PRN (21:00)
[2017-04-28] MEDS ORDERED: LORAZEPAM 0.5MG TABLET PO PRN (21:00)
[2017-04-28] MEDS ORDERED: CLONIDINE 0.1MG TABLET PO PRN (21:00)
[2017-04-28] MEDS ORDERED: ENOXAPARIN 40MG/0.4ML SYR SUBCUT SCH (21:00)
[2017-04-29] MEDS ORDERED: SODIUM CHLORIDE 0.9% 1,000 ML IV SCH (01:04)
[2017-04-29] MEDS ORDERED: METO-411 PO (04:33)
[2017-04-29] MEDS ORDERED: NIFE30TA94 PO (04:33)
[2017-04-29] MEDS ORDERED: QUET25TA PO (04:33)
[2017-04-29 04:34] VITALS: BP 163/76
[2017-04-29 06:28] LABS: BASOPHILS % 0.4 % (0.0-2.0); EOSINOPHILS % 0.1 % (0.0-5.0); HEMATOCRIT. 26.2 % (42.0-52.0); HEMOGLOBIN. 8.9 g/dL (14.0-18.0); LYMPHOCYTES % 23.3 % (20.0-50.0); MEAN CORPUSCULAR HEMOGLOBIN 34.2 pg (28.0-32.0); MEAN CORPUSCULAR VOLUME 100.1 fL (80.0-94.0); MEAN PLATELET VOLUME 9.1 fl (7.4-10.4); MONOCYTES % 10.9 % (2.0-8.0); NEUTROPHILS % 65.3 % (40.0-76.0); PLATELET 169 x1000/uL (130-400); RED BLOOD CELL COUNT 2.61 mill/uL (4.7-6.1); RED CELL DISTRIBUTION WIDTH 16.5 % (11.6-14.6)
[2017-04-29] MEDS ORDERED: METOCLOPRAMIDE HCL 10MG TABLET PO PRN (07:30)
[2017-04-29] MEDS: HYDRALAZINE HCL 100MG TABLET PO SCH ×3 (07:32→21:31)
[2017-04-29 08:00] VITALS: BP 152/74
[2017-04-29] MEDS: LOSARTAN POTASSIUM 50 MG TABLET PO SCH (09:00)
[2017-04-29 09:17] LABS: HEMATOCRIT 27.2 % (42.0-52.0); HEMOGLOBIN 9.3 g/dL (14.0-18.0)
[2017-04-29] MEDS: ENOXAPARIN 30MG/0.3ML SYR SUBCUT SCH (10:28)
[2017-04-29] MEDS: MEMANTINE HCL 10MG TABLET PO SCH (10:28)
[2017-04-29] MEDS: GLIMEPIRIDE 2MG TABLET PO SCH (10:29)
[2017-04-29] MEDS: CITALOPRAM HYDROBROMIDE 10MG TABLET PO SCH (10:30)
[2017-04-29] MEDS: LEVETIRACETAM 500MG TABLET PO SCH ×2 (10:30→21:31)
[2017-04-29] MEDS: FAMOTIDINE 20MG TABLET PO SCH (10:30)
[2017-04-29 12:00] VITALS: BP 151/69
[2017-04-29 15:39] LABS: CLARITY URINE CLOUDY (CLEAR); COLOR URINE YELLOW (YELLOW); KETONES URINE TRACE (NEGATIVE); LEUKOCYTE ESTERASE URINE 1+ (NEGATIVE); NITRITE URINE NEGATIVE (NEGATIVE); OCCULT BLOOD URINE 3+ (NEGATIVE); PROTEIN URINE 3+ (NEGATIVE); SPECIFIC GRAVITY URINE 1.017 (1.005-1.030); UROBILINOGEN URINE 0.2 E.U./dL (0.2-1.0)
[2017-04-29 16:00] VITALS: BP 148/69
[2017-04-29 16:02] LABS: *AMPHETAMINES SCREEN URINE NEGATIVE (NEGATIVE); *BARBITURATES SCREEN URINE NEGATIVE (NEGATIVE); *BENZODIAZEPINES SCREEN URINE NEGATIVE (NEGATIVE); *COCAINE SCREEN URINE NEGATIVE (NEGATIVE); CANNABINOID URINE SCREEN PRESUMTIVE POSITIVE (NEGATIVE); METHADONE URINE SCREEN NEGATIVE (NEGATIVE); OPIATES URINE SCREEN PRESUMTIVE POSITIVE (NEGATIVE); PHENCYCLIDINE URINE SCREEN NEGATIVE (NEGATIVE)
[2017-04-29] MEDS ORDERED: EPOETIN ALFA 10000UNITS/ML VIAL SUBCUT SCH ×2 (18:00→21:00)
[2017-04-29 20:00] VITALS: BP 139/77
[2017-04-29] MEDS ORDERED: QUETIAPINE FUMARATE 25MG TABLET PO SCH (21:00)
[2017-04-29] MEDS ORDERED: ZOLPIDEM TARTRATE 5MG TABLET PO PRN (21:00)
[2017-04-30] VITALS: BP 122/56
[2017-04-30 04:00] VITALS: BP 137/67
[2017-04-30] MEDS: HYDRALAZINE HCL 100MG TABLET PO SCH ×2 (06:24→13:41)
[2017-04-30 07:40] LABS: BASOPHILS % 0.6 % (0.0-2.0); EOSINOPHILS % 0.6 % (0.0-5.0); HEMATOCRIT. 29.5 % (42.0-52.0); HEMOGLOBIN. 9.9 g/dL (14.0-18.0); LYMPHOCYTES % 38.7 % (20.0-50.0); MEAN CORPUSCULAR HEMOGLOBIN 33.5 pg (28.0-32.0); MEAN CORPUSCULAR VOLUME 99.9 fL (80.0-94.0); MEAN PLATELET VOLUME 9.1 fl (7.4-10.4); MONOCYTES % 9.6 % (2.0-8.0); NEUTROPHILS % 50.5 % (40.0-76.0); PLATELET 209 x1000/uL (130-400); RED BLOOD CELL COUNT 2.96 mill/uL (4.7-6.1); RED CELL DISTRIBUTION WIDTH 16.6 % (11.6-14.6)
[2017-04-30 08:00] VITALS: BP 144/86
[2017-04-30] MEDS ORDERED: SULFAMETHOXAZOLE/TRIMETHOPRIM 800/160MG TABLET PO NR (08:12)
[2017-04-30] MEDS: LEVETIRACETAM 500MG TABLET PO SCH (08:58)
[2017-04-30] MEDS: ENOXAPARIN 30MG/0.3ML SYR SUBCUT SCH (08:58)
[2017-04-30] MEDS: GLIMEPIRIDE 2MG TABLET PO SCH (08:58)
[2017-04-30] MEDS: CITALOPRAM HYDROBROMIDE 10MG TABLET PO SCH (08:58)
[2017-04-30] MEDS: LOSARTAN POTASSIUM 50 MG TABLET PO SCH (08:58)
[2017-04-30] MEDS: MEMANTINE HCL 10MG TABLET PO SCH (08:58)
[2017-04-30] MEDS: FAMOTIDINE 20MG TABLET PO SCH (08:58)
[2017-04-30 14:25] VITALS: BP 137/72
== END 2017-04-30 15:00 | disposition home or self-care (01) | DRG 682 ==
LOC: ER 15:27 → 8WST 18:14 → ENRESERV 21:23
PROVIDERS: ADMIT Internal Medicine Geriatric Medicine; ATTEND Internal Medicine Geriatric Medicine
PROC: 5A1D70Z Performance of Urinary Filtration, Intermittent, Less than 6 Hours Per Day (ICD-10-PCS; principal; 2017-04-29)
DX: I13.11 Hypertensive heart and chronic kidney disease without heart failure, with stage 5 chronic kidney disease, or end stage renal disease (principal); N18.6 End stage renal disease; E44.0 Moderate protein-calorie malnutrition; E11.22 Type 2 diabetes mellitus with diabetic chronic kidney disease; K31.84 Gastroparesis; E11.43 Type 2 diabetes mellitus with diabetic autonomic (poly)neuropathy; G93.89 Other specified disorders of brain; M48.02 Spinal stenosis, cervical region; N39.0 Urinary tract infection, site not specified; M81.0 Age-related osteoporosis without current pathological fracture; D63.8 Anemia in other chronic diseases classified elsewhere; D72.829 Elevated white blood cell count, unspecified; E87.6 Hypokalemia; F01.50 Vascular dementia, unspecified severity, without behavioral disturbance, psychotic disturbance, mood disturbance, and anxiety; F12.10 Cannabis abuse, uncomplicated; G40.909 Epilepsy, unspecified, not intractable, without status epilepticus; I25.10 Atherosclerotic heart disease of native coronary artery without angina pectoris; J44.9 Chronic obstructive pulmonary disease, unspecified; K21.9 Gastro-esophageal reflux disease without esophagitis; K57.30 Diverticulosis of large intestine without perforation or abscess without bleeding; N40.0 Benign prostatic hyperplasia without lower urinary tract symptoms; F32.9 Major depressive disorder, single episode, unspecified; I71.4 Abdominal aortic aneurysm, without rupture; M19.90 Unspecified osteoarthritis, unspecified site; R26.89 Other abnormalities of gait and mobility; Z86.14 Personal history of Methicillin resistant Staphylococcus aureus infection; Z86.73 Personal history of transient ischemic attack (TIA), and cerebral infarction without residual deficits; Z90.49 Acquired absence of other specified parts of digestive tract; Z99.2 Dependence on renal dialysis; Z79.899 Other long term (current) drug therapy
CPT/HCPCS: 36415; 36600; 71045; 74176; 80048; 80053; 80305; 81003; 82375; 82805; 82962; 83690; 85014; 85018; 85025; 85610; 86850; 86900; 87086; 93005; 93970; 96361; 96374; 96375; 99285; J0885; J1650; J1885; J2270; J3490; J7030; J8597

== ENCOUNTER 2017-05-10 15:50 | Observation (INO) | payer MEDICARE, MEDICAID ==
[~2017-05-10] VITALS: Ht 188 cm; Wt 69.0 kg
[~2017-05-10 15:50] MED LIST changes: +METO-411 PO; -NEBI10TA2 PO; +NIFE30TA94 PO; -NIFE60TA64 PO; +QUET25TA PO
[2017-05-10] MEDS ORDERED: MORPHINE SULFATE 4 MG/ML CPJ (NOT FOR IM USE) IV STA (17:07)
[2017-05-10] MEDS ORDERED: ONDANSETRON HCL 4MG/2ML VIAL IV STA (17:07)
[2017-05-10 17:35] LABS: BASOPHILS % 0.6 % (0.0-2.0); EOSINOPHILS % 0.4 % (0.0-5.0); HEMATOCRIT. 29.1 % (42.0-52.0); HEMOGLOBIN. 9.8 g/dL (14.0-18.0); LYMPHOCYTES % 10.6 % (20.0-50.0); MEAN CORPUSCULAR HEMOGLOBIN 33.4 pg (28.0-32.0); MEAN CORPUSCULAR VOLUME 99.5 fL (80.0-94.0); MONOCYTES % 3.9 % (2.0-8.0); NEUTROPHILS % 84.5 % (40.0-76.0); PLATELET 228 x1000/uL (130-400); RED BLOOD CELL COUNT 2.93 mill/uL (4.7-6.1); RED CELL DISTRIBUTION WIDTH 16.4 % (11.6-14.6)
[2017-05-10 17:40] LABS: CHLORIDE 96 mEq/L (98-107)
[2017-05-10 17:43] LABS: INR 1.2; PROTHROMBIN TIME 12.7 sec (9.4-11.6)
[2017-05-10 17:50] LABS: CLARITY URINE CLEAR (CLEAR); COLOR URINE YELLOW (YELLOW); KETONES URINE NEGATIVE (NEGATIVE); LEUKOCYTE ESTERASE URINE NEGATIVE (NEGATIVE); NITRITE URINE NEGATIVE (NEGATIVE); OCCULT BLOOD URINE 2+ (NEGATIVE); PH URINE >=9.0 (4.5-8.0); PROTEIN URINE 3+ (NEGATIVE); SPECIFIC GRAVITY URINE 1.012 (1.005-1.030); UROBILINOGEN URINE 0.2 E.U./dL (0.2-1.0)
[2017-05-10 17:51] LABS: TROPONIN I 0.08 ng/mL (0.00-0.04)
[2017-05-10] MEDS ORDERED: SODIUM CHLORIDE 0.9% 500 ML IV ONE (18:10)
[2017-05-10] MEDS ORDERED: ACETAMINOPHEN 650MG SUPP PR PRN (21:00)
[2017-05-10] MEDS ORDERED: LEVETIRACETAM 500MG TABLET PO SCH (21:00)
[2017-05-10 23:00] VITALS: BP 122/62
[2017-05-11] VITALS (7 sets, daily range): BP systolic 122–153; BP diastolic 59–79
[2017-05-11] MEDS ORDERED: SEVE800T8 PO (05:03)
[2017-05-11] MEDS ORDERED: CLONIDINE 0.1MG TABLET PO PRN (06:30)
[2017-05-11] MEDS ORDERED: ONDANSETRON HCL 4MG/2ML VIAL IV PRN (06:30)
[2017-05-11] MEDS ORDERED: DEXTROSE 50% WATER 50ML SYRINGE IV PRN (06:30)
[2017-05-11 07:27] LABS: BASOPHILS % 0.5 % (0.0-2.0); EOSINOPHILS % 0.5 % (0.0-5.0); HEMATOCRIT. 28.1 % (42.0-52.0); HEMOGLOBIN. 9.2 g/dL (14.0-18.0); LYMPHOCYTES % 29.2 % (20.0-50.0); MEAN CORPUSCULAR HEMOGLOBIN 33.1 pg (28.0-32.0); MEAN CORPUSCULAR VOLUME 101.2 fL (80.0-94.0); NEUTROPHILS % 60.8 % (40.0-76.0); PLATELET 214 x1000/uL (130-400); RED BLOOD CELL COUNT 2.78 mill/uL (4.7-6.1); RED CELL DISTRIBUTION WIDTH 16.3 % (11.6-14.6)
[2017-05-11] MEDS ORDERED: METOCLOPRAMIDE HCL 5MG TABLET PO PRN (07:45)
[2017-05-11] MEDS: INSULIN LISPRO 100 UNITS/ML SUBCUT SCH ×4 (07:50→21:00)
[2017-05-11] MEDS: BLOOD SUGAR DIAGNOSTIC STRIP TEST SCH ×4 (07:53→21:56)
[2017-05-11] MEDS: HYDRALAZINE HCL 100MG TABLET PO SCH ×3 (08:00→21:56)
[2017-05-11] MEDS: LOSARTAN POTASSIUM 50 MG TABLET PO SCH (08:55)
[2017-05-11] MEDS: METOPROLOL TARTRATE 50MG TABLET PO SCH ×2 (08:55→21:56)
[2017-05-11] MEDS: NIFEDIPINE XL 90MG TAB PO SCH (08:56)
[2017-05-11] MEDS: CITALOPRAM HYDROBROMIDE 10MG TABLET PO SCH (08:58)
[2017-05-11] MEDS: GLIMEPIRIDE 2MG TABLET PO SCH (08:58)
[2017-05-11] MEDS: SEVELAMER CARBONATE 800 MG TABLET PO SCH ×3 (08:58→18:32)
[2017-05-11] MEDS: FAMOTIDINE 20MG TABLET PO SCH (08:59)
[2017-05-11] MEDS: LEVETIRACETAM 500MG TABLET PO SCH ×2 (08:59→21:55)
[2017-05-11] MEDS ORDERED: RENAVITE PO SCH (09:00)
[2017-05-11] MEDS ORDERED: MEDICATION NOT ON FORMULARY EA ([Plavix] 75 MG) PO SCH (09:00)
[2017-05-11] MEDS ORDERED: MEDICATION NOT ON FORMULARY EA (Metoprolol Succinate 100 MG) PO SCH (09:00)
[2017-05-11] MEDS ORDERED: GALANTAMINE 16 MG PO SCH (09:00)
[2017-05-11] MEDS: FOLIC ACID/VITAMIN B COMP W-C TABLET PO SCH (09:04)
[2017-05-11] MEDS: GALANTAMINE HBR 8MG ER CAPSULE 24HR PO SCH (09:04)
[2017-05-11] MEDS: CLOPIDOGREL 75MG TABLET PO SCH (09:04)
[2017-05-11] MEDS: METOCLOPRAMIDE HCL 10MG TABLET PO SCH (09:04)
[2017-05-11] MEDS: MEMANTINE HCL 5MG TABLET PO SCH (09:09)
[2017-05-11] MEDS ORDERED: ZOLPIDEM TARTRATE 5MG TABLET PO PRN (21:00)
[2017-05-12] VITALS: BP 123/60
[2017-05-12 04:00] VITALS: BP 111/60
[2017-05-12] MEDS: HYDRALAZINE HCL 100MG TABLET PO SCH (06:00)
[2017-05-12] MEDS: BLOOD SUGAR DIAGNOSTIC STRIP TEST SCH ×2 (06:47→13:04)
[2017-05-12 06:53] LABS: BASOPHILS % 0.8 % (0.0-2.0); EOSINOPHILS % 0.8 % (0.0-5.0); HEMATOCRIT. 29.6 % (42.0-52.0); HEMOGLOBIN. 9.9 g/dL (14.0-18.0); LYMPHOCYTES % 33.1 % (20.0-50.0); MEAN CORPUSCULAR VOLUME 101.5 fL (80.0-94.0); MEAN PLATELET VOLUME 8.3 fl (7.4-10.4); MONOCYTES % 8.4 % (2.0-8.0); NEUTROPHILS % 56.9 % (40.0-76.0); PLATELET 214 x1000/uL (130-400); RED BLOOD CELL COUNT 2.91 mill/uL (4.7-6.1); RED CELL DISTRIBUTION WIDTH 16.7 % (11.6-14.6)
[2017-05-12] MEDS: INSULIN LISPRO 100 UNITS/ML SUBCUT SCH ×2 (07:50→12:50)
[2017-05-12 08:00] VITALS: BP 148/69
[2017-05-12] MEDS: LEVETIRACETAM 500MG TABLET PO SCH (08:56)
[2017-05-12] MEDS: FAMOTIDINE 20MG TABLET PO SCH (08:57)
[2017-05-12] MEDS: FOLIC ACID/VITAMIN B COMP W-C TABLET PO SCH (08:57)
[2017-05-12] MEDS: NIFEDIPINE XL 90MG TAB PO SCH (08:57)
[2017-05-12] MEDS: METOPROLOL TARTRATE 50MG TABLET PO SCH (08:57)
[2017-05-12] MEDS: GLIMEPIRIDE 2MG TABLET PO SCH (08:57)
[2017-05-12] MEDS: CLOPIDOGREL 75MG TABLET PO SCH (08:58)
[2017-05-12] MEDS: METOCLOPRAMIDE HCL 10MG TABLET PO SCH (08:58)
[2017-05-12] MEDS: CITALOPRAM HYDROBROMIDE 10MG TABLET PO SCH (08:58)
[2017-05-12] MEDS: SEVELAMER CARBONATE 800 MG TABLET PO SCH ×2 (08:58→13:10)
[2017-05-12] MEDS: LOSARTAN POTASSIUM 50 MG TABLET PO SCH (09:05)
[2017-05-12] MEDS: GALANTAMINE HBR 8MG ER CAPSULE 24HR PO SCH (09:05)
[2017-05-12] MEDS: MEMANTINE HCL 5MG TABLET PO SCH (09:05)
== END 2017-05-12 17:00 | disposition home or self-care (01) ==
LOC: ER 16:23 → INTOOBSV 18:21 → 6WST 18:21 → EDBEDREQ 18:26 → ENRESERV 20:58 → 6WST 05-11 00:15
PROVIDERS: ADMIT Internal Medicine Geriatric Medicine; ATTEND Internal Medicine Geriatric Medicine
DX: R11.2 Nausea with vomiting, unspecified (principal); E11.43 Type 2 diabetes mellitus with diabetic autonomic (poly)neuropathy; K31.84 Gastroparesis; I12.0 Hypertensive chronic kidney disease with stage 5 chronic kidney disease or end stage renal disease; N18.6 End stage renal disease; E11.22 Type 2 diabetes mellitus with diabetic chronic kidney disease; G40.909 Epilepsy, unspecified, not intractable, without status epilepticus; D63.1 Anemia in chronic kidney disease; K21.9 Gastro-esophageal reflux disease without esophagitis; M81.0 Age-related osteoporosis without current pathological fracture; I25.10 Atherosclerotic heart disease of native coronary artery without angina pectoris; N40.0 Benign prostatic hyperplasia without lower urinary tract symptoms; Z79.84 Long term (current) use of oral hypoglycemic drugs; Z79.899 Other long term (current) drug therapy; Z86.73 Personal history of transient ischemic attack (TIA), and cerebral infarction without residual deficits; Z87.11 Personal history of peptic ulcer disease; Z87.440 Personal history of urinary (tract) infections; Z90.49 Acquired absence of other specified parts of digestive tract; Z99.2 Dependence on renal dialysis
CPT/HCPCS: 36415; 71045; 74018; 80048; 80053; 81003; 82962; 83605; 83690; 84484; 85025; 85610; 93005; 96361; 96374; 96375; 99285; G0378; J2270; J2405; J7030; J8597

== ENCOUNTER 2017-07-10 20:15 | Inpatient (IN) | payer MEDICARE, MEDICAID ==
[~2017-07-10] VITALS: Ht 182.9 cm; Wt 64.4 kg
[~2017-07-10 20:15] MED LIST changes: +SEVE800T8 PO
[2017-07-10] MEDS ORDERED: MORPHINE SULFATE 4 MG/ML CPJ (NOT FOR IM USE) IV ONE ×2 (21:00→22:45)
[2017-07-10] MEDS ORDERED: ONDANSETRON HCL 4MG/2ML VIAL IV ONE (21:00)
[2017-07-10 21:44] LABS: BASOPHILS % 0.6 % (0.0-2.0); EOSINOPHILS % 0.4 % (0.0-5.0); HEMATOCRIT. 38.6 % (42.0-52.0); HEMOGLOBIN. 13.4 g/dL (14.0-18.0); MEAN CORPUSCULAR HEMOGLOBIN 35.3 pg (28.0-32.0); MEAN CORPUSCULAR VOLUME 101.9 fL (80.0-94.0); MEAN PLATELET VOLUME 9.1 fl (7.4-10.4); MONOCYTES % 8.2 % (2.0-8.0); NEUTROPHILS % 55.8 % (40.0-76.0); PLATELET 186 x1000/uL (130-400); RED BLOOD CELL COUNT 3.79 mill/uL (4.7-6.1); RED CELL DISTRIBUTION WIDTH 14.8 % (11.6-14.6)
[2017-07-10 21:54] LABS: INR 1.2; PARTIAL THROMBOPLASTIN TIME 24.7 sec (23.4-31.0); PROTHROMBIN TIME 12.1 sec (9.4-11.6)
[2017-07-10] MEDS ORDERED: KETOROLAC 30MG/ML VIAL IV ONE (22:45)
[2017-07-10] MEDS ORDERED: ACETAMINOPHEN 325MG TABLET PO PRN (23:00)
[2017-07-10] MEDS ORDERED: ONDANSETRON HCL 4MG/2ML VIAL IV PRN (23:00)
[2017-07-10] MEDS ORDERED: CLONIDINE 0.1MG TABLET PO PRN (23:00)
[2017-07-10 23:52] LABS: CLARITY URINE TURBID (CLEAR); COLOR URINE YELLOW (YELLOW); KETONES URINE NEGATIVE (NEGATIVE); LEUKOCYTE ESTERASE URINE 1+ (NEGATIVE); NITRITE URINE NEGATIVE (NEGATIVE); OCCULT BLOOD URINE 2+ (NEGATIVE); PH URINE 6.5 (4.5-8.0); PROTEIN URINE 4+ (NEGATIVE); SPECIFIC GRAVITY URINE 1.027 (1.005-1.030); UROBILINOGEN URINE 0.2 E.U./dL (0.2-1.0)
[2017-07-11 00:22] LABS: *COCAINE SCREEN URINE NEGATIVE (NEGATIVE); METHADONE URINE SCREEN NEGATIVE (NEGATIVE); OPIATES URINE SCREEN PRESUMTIVE POSITIVE (NEGATIVE)
[2017-07-11 00:23] LABS: *AMPHETAMINES SCREEN URINE NEGATIVE (NEGATIVE); *BARBITURATES SCREEN URINE NEGATIVE (NEGATIVE); *BENZODIAZEPINES SCREEN URINE NEGATIVE (NEGATIVE); CANNABINOID URINE SCREEN PRESUMTIVE POSITIVE (NEGATIVE); PHENCYCLIDINE URINE SCREEN NEGATIVE (NEGATIVE)
[2017-07-11] MEDS: HYDROMORPHONE HCL/PF 2MG/ML CPJ IV PRN ×3 (01:43→06:24)
[2017-07-11 05:01] LABS: HEMATOCRIT. 36.9 % (42.0-52.0); HEMOGLOBIN. 12.8 g/dL (14.0-18.0); MEAN CORPUSCULAR HEMOGLOBIN 34.8 pg (28.0-32.0); MEAN CORPUSCULAR VOLUME 100.8 fL (80.0-94.0); MEAN PLATELET VOLUME 8.4 fl (7.4-10.4); PLATELET 171 x1000/uL (130-400); RED BLOOD CELL COUNT 3.66 mill/uL (4.7-6.1); RED CELL DISTRIBUTION WIDTH 15.3 % (11.6-14.6)
[2017-07-11 05:06] LABS: CHLORIDE 101 mEq/L (98-107)
[2017-07-11] MEDS ORDERED: LABETALOL 5MG/ML SYR 20 MG/4 ML SYRINGE IV SCH (05:28)
[2017-07-11] MEDS ORDERED: HYDRALAZINE HCL 25MG TABLET PO SCH ×2 (05:30→14:00)
[2017-07-11 08:00] VITALS: BP 140/77
[2017-07-11 09:00] VITALS: BP 125/65
[2017-07-11] MEDS ORDERED: ENOXAPARIN 30MG/0.3ML SYR SUBCUT SCH (09:00)
[2017-07-11] MEDS ORDERED: HYDRALAZINE 10 MG in SODIUM CHLORIDE 0.9% 49.5 ML IV PRN (10:15)
[2017-07-11 12:00] VITALS: BP 125/65
[2017-07-11] MEDS ORDERED: HYDRALAZINE 20MG/ML VIAL IV SCH (12:00)
[2017-07-11] MEDS: AMLODIPINE 5MG TABLET PO SCH ×2 (12:05→21:00)
[2017-07-11] MEDS: HYDRALAZINE HCL 100MG TABLET PO SCH ×2 (12:06→22:00)
[2017-07-11] MEDS: METOPROLOL TARTRATE 100MG TABLET PO SCH ×2 (12:06→21:00)
[2017-07-11] MEDS: CITALOPRAM HYDROBROMIDE 10MG TABLET PO SCH (12:06)
[2017-07-11] MEDS: NIFEDIPINE XL 90MG TAB PO SCH (12:06)
[2017-07-11] MEDS: LEVETIRACETAM 500MG TABLET PO SCH ×2 (12:06→22:41)
[2017-07-11] MEDS: FAMOTIDINE 20MG TABLET PO SCH (12:07)
[2017-07-11] MEDS: MEMANTINE HCL 10MG TABLET PO SCH (12:07)
[2017-07-11] MEDS: LOSARTAN POTASSIUM 50 MG TABLET PO SCH (12:07)
[2017-07-11] MEDS: CEFTRIAXONE 1 G PREMIX 50 ML IV SCH (12:12)
[2017-07-11] MEDS ORDERED: MORPHINE SULFATE/PF 1MG/ML 10ML AMP ONE ×2 (14:26→17:29)
[2017-07-11] MEDS ORDERED: BUPIVACAINE HCL/EPINEPHRINE/PF 0.5%/0.0005 10ML ONE ×2 (14:27→15:30)
[2017-07-11] MEDS ORDERED: NORMAL SALINE 0.9% 10 ML SYR ONE (14:27)
[2017-07-11] MEDS ORDERED: GENTAMICIN SULF 40MG/ML 2ML VIAL ONE (14:27)
[2017-07-11] MEDS ORDERED: BACITRACIN 50,000 UNITS/VIAL ONE (14:28)
[2017-07-11 14:31] LABS: PLATELET ESTIMATE NORMAL
[2017-07-11] MEDS ORDERED: FENTANYL CITRATE/PF 50MCG/ML 2ML VIAL ONE ×2 (15:01→17:26)
[2017-07-11] MEDS ORDERED: MIDAZOLAM HCL 2 MG/2 ML VIAL ONE (15:01)
[2017-07-11] MEDS ORDERED: LIDOCAINE HCL/PF 1% 10 MG/ML 5ML VIAL ONE (15:01)
[2017-07-11] MEDS ORDERED: PROPOFOL 200MG/20ML VIAL IV ONE (15:02)
[2017-07-11] MEDS ORDERED: EPHEDRINE SULFATE 50MG/ML VIAL ONE (15:11)
[2017-07-11] MEDS ORDERED: ROCURONIUM BROMIDE 10MG/ML VIAL 5ML IV ONE ×2 (15:43→17:29)
[2017-07-11] MEDS ORDERED: MEPERIDINE HCL/PF 25MG/ML CPJ IV PRN (16:30)
[2017-07-11] MEDS ORDERED: ONDANSETRON HCL 4MG/2ML VIAL IV PRN (16:30)
[2017-07-11] MEDS ORDERED: HYDROMORPHONE HCL/PF 2MG/ML CPJ IV PRN (16:30)
[2017-07-11] MEDS ORDERED: LABETALOL 5MG/ML SYR 20 MG/4 ML SYRINGE IV PRN (16:30)
[2017-07-11] MEDS ORDERED: BUPIVACAINE HCL/PF 0.5% (5MG/ML) 10ML ONE (17:29)
[2017-07-11] MEDS ORDERED: SKIN ADHESIVE 0.7 GM EA TOP ONE (17:42)
[2017-07-11] MEDS ORDERED: NEOSTIGMINE METHYLSULFATE 1MG/ML 10 ML VIAL ONE (17:50)
[2017-07-11] MEDS ORDERED: ZOLPIDEM TARTRATE 5MG TABLET PO PRN ×2 (18:15→21:00)
[2017-07-11] MEDS ORDERED: HYDROCODONE/ACETAMINOPHEN 5/325MG TABLET PO PRN (18:15)
[2017-07-11] MEDS ORDERED: MORPHINE SULFATE 4 MG/ML CPJ (NOT FOR IM USE) IV PRN ×2 (18:15→18:41)
[2017-07-11] MEDS ORDERED: ACETAMINOPHEN 325MG TABLET PO PRN (18:15)
[2017-07-11 20:00] VITALS: BP 91/47
[2017-07-11] MEDS ORDERED: QUETIAPINE FUMARATE 25MG TABLET PO SCH (21:00)
[2017-07-11] MEDS: METOCLOPRAMIDE HCL 5MG TABLET PO SCH (22:41)
[2017-07-12 00:10] VITALS: BP 90/50
[2017-07-12 04:00] VITALS: BP 100/52
[2017-07-12] MEDS: HYDRALAZINE HCL 100MG TABLET PO SCH (06:00)
[2017-07-12] MEDS: METOCLOPRAMIDE HCL 5MG TABLET PO SCH ×4 (06:59→21:03)
[2017-07-12 07:35] LABS: BASOPHILS % 0.3 % (0.0-2.0); EOSINOPHILS % 0.7 % (0.0-5.0); HEMATOCRIT. 31.7 % (42.0-52.0); HEMOGLOBIN. 10.7 g/dL (14.0-18.0); LYMPHOCYTES % 21.7 % (20.0-50.0); MEAN CORPUSCULAR HEMOGLOBIN 34.6 pg (28.0-32.0); MEAN CORPUSCULAR VOLUME 102.3 fL (80.0-94.0); MEAN PLATELET VOLUME 9.2 fl (7.4-10.4); MONOCYTES % 6.6 % (2.0-8.0); NEUTROPHILS % 70.7 % (40.0-76.0); PLATELET 140 x1000/uL (130-400); RED CELL DISTRIBUTION WIDTH 15.3 % (11.6-14.6)
[2017-07-12] MEDS: IPRATROPIUM/ALBUTEROL 0.5-3(2.5)MG/3ML NEB HHN SCH ×4 (07:44→20:41)
[2017-07-12 08:00] VITALS: BP 90/49
[2017-07-12] MEDS: LOSARTAN POTASSIUM 50 MG TABLET PO SCH (08:40)
[2017-07-12] MEDS: METOPROLOL TARTRATE 100MG TABLET PO SCH (08:40)
[2017-07-12] MEDS: AMLODIPINE 5MG TABLET PO SCH (08:41)
[2017-07-12] MEDS: NIFEDIPINE XL 90MG TAB PO SCH (08:41)
[2017-07-12] MEDS: CITALOPRAM HYDROBROMIDE 10MG TABLET PO SCH (08:48)
[2017-07-12] MEDS: SEVELAMER CARBONATE 800 MG TABLET PO SCH ×3 (08:48→17:41)
[2017-07-12] MEDS: LEVETIRACETAM 500MG TABLET PO SCH ×2 (08:48→21:03)
[2017-07-12] MEDS: FAMOTIDINE 20MG TABLET PO SCH (08:48)
[2017-07-12] MEDS: MEMANTINE HCL 10MG TABLET PO SCH (08:49)
[2017-07-12] MEDS: ENOXAPARIN 30MG/0.3ML SYR SUBCUT SCH (08:50)
[2017-07-12] MEDS: MIDODRINE HCL 5MG TABLET PO SCH ×4 (10:44→17:41)
[2017-07-12] MEDS ORDERED: DEXTROSE 50% WATER 50ML SYRINGE IV PRN (11:15)
[2017-07-12] MEDS: BLOOD SUGAR DIAGNOSTIC STRIP TEST SCH ×3 (12:25→21:00)
[2017-07-12] MEDS: INSULIN LISPRO 100 UNITS/ML SUBCUT SCH ×3 (12:27→21:00)
[2017-07-12 12:42] VITALS: BP 86/48
[2017-07-12] MEDS: CEFTRIAXONE 1 G PREMIX 50 ML IV SCH ×2 (12:46→15:05)
[2017-07-12 16:19] VITALS: BP 129/57
[2017-07-12 20:00] VITALS: BP 97/55
[2017-07-12] MEDS: METOPROLOL TARTRATE 25MG TABLET PO SCH (21:00)
[2017-07-12] MEDS ORDERED: METOPROLOL TARTRATE 25MG TABLET PO SCH (21:00)
[2017-07-13] VITALS (10 sets, daily range): BP systolic 101–139; BP diastolic 52–72
[2017-07-13] MEDS: IPRATROPIUM/ALBUTEROL 0.5-3(2.5)MG/3ML NEB HHN SCH ×6 (04:00→21:01)
[2017-07-13] MEDS: METOCLOPRAMIDE HCL 5MG TABLET PO SCH ×4 (06:25→21:13)
[2017-07-13] MEDS: BLOOD SUGAR DIAGNOSTIC STRIP TEST SCH ×4 (06:27→21:12)
[2017-07-13] MEDS: INSULIN LISPRO 100 UNITS/ML SUBCUT SCH ×4 (06:28→21:00)
[2017-07-13 07:10] LABS: BASOPHILS % 0.7 % (0.0-2.0); EOSINOPHILS % 1.2 % (0.0-5.0); HEMATOCRIT. 27.4 % (42.0-52.0); HEMOGLOBIN. 9.3 g/dL (14.0-18.0); LYMPHOCYTES % 29.7 % (20.0-50.0); MEAN CORPUSCULAR HEMOGLOBIN 35.1 pg (28.0-32.0); MEAN PLATELET VOLUME 9.1 fl (7.4-10.4); MONOCYTES % 9.3 % (2.0-8.0); NEUTROPHILS % 59.1 % (40.0-76.0); PLATELET 126 x1000/uL (130-400); RED BLOOD CELL COUNT 2.66 mill/uL (4.7-6.1); RED CELL DISTRIBUTION WIDTH 15.2 % (11.6-14.6)
[2017-07-13] MEDS: SEVELAMER CARBONATE 800 MG TABLET PO SCH ×3 (08:39→16:46)
[2017-07-13] MEDS: METOPROLOL TARTRATE 25MG TABLET PO SCH ×2 (08:40→21:14)
[2017-07-13] MEDS: MIDODRINE HCL 5MG TABLET PO SCH (08:43)
[2017-07-13] MEDS: CITALOPRAM HYDROBROMIDE 10MG TABLET PO SCH (08:46)
[2017-07-13] MEDS: LEVETIRACETAM 500MG TABLET PO SCH ×2 (08:46→21:13)
[2017-07-13] MEDS: FAMOTIDINE 20MG TABLET PO SCH (08:46)
[2017-07-13] MEDS: MEMANTINE HCL 10MG TABLET PO SCH (08:46)
[2017-07-13] MEDS: ENOXAPARIN 30MG/0.3ML SYR SUBCUT SCH (08:46)
[2017-07-13] MEDS: CEFTRIAXONE 1 G PREMIX 50 ML IV SCH (09:01)
[2017-07-13] MEDS: HYDROCODONE/ACETAMINOPHEN 5/325MG TABLET PO PRN ×2 (10:40→16:46)
[2017-07-14] VITALS: BP 134/75
[2017-07-14] MEDS: IPRATROPIUM/ALBUTEROL 0.5-3(2.5)MG/3ML NEB HHN SCH ×3 (00:17→09:45)
[2017-07-14 03:57] VITALS: BP 148/70
[2017-07-14 06:30] LABS: BASOPHILS % 0.5 % (0.0-2.0); EOSINOPHILS % 2.2 % (0.0-5.0); HEMATOCRIT. 25.2 % (42.0-52.0); HEMOGLOBIN. 8.7 g/dL (14.0-18.0); LYMPHOCYTES % 30.1 % (20.0-50.0); MEAN PLATELET VOLUME 9.6 fl (7.4-10.4); MONOCYTES % 10.6 % (2.0-8.0); NEUTROPHILS % 56.6 % (40.0-76.0); PLATELET 121 x1000/uL (130-400); RED BLOOD CELL COUNT 2.47 mill/uL (4.7-6.1); RED CELL DISTRIBUTION WIDTH 14.6 % (11.6-14.6)
[2017-07-14] MEDS: BLOOD SUGAR DIAGNOSTIC STRIP TEST SCH (06:32)
[2017-07-14] MEDS: METOCLOPRAMIDE HCL 5MG TABLET PO SCH (06:32)
[2017-07-14] MEDS: INSULIN LISPRO 100 UNITS/ML SUBCUT SCH (06:34)
[2017-07-14] MEDS: SEVELAMER CARBONATE 800 MG TABLET PO SCH (07:56)
[2017-07-14 08:00] VITALS: BP 149/74
[2017-07-14 08:26] LABS: CREATINE KINASE MB FRACTION 2.6 ng/mL (0.5-3.6)
[2017-07-14] MEDS ORDERED: SORBITOL 70% SOLN 30ML PO NR (08:45)
[2017-07-14] MEDS ORDERED: FERROUS SULFATE 325MG TABLET PO SCH (09:00)
[2017-07-14] MEDS ORDERED: FOLIC ACID/VITAMIN B COMP W-C TABLET PO SCH (09:00)
[2017-07-14] MEDS: ENOXAPARIN 30MG/0.3ML SYR SUBCUT SCH (09:38)
[2017-07-14] MEDS: FAMOTIDINE 20MG TABLET PO SCH (09:38)
[2017-07-14] MEDS: METOPROLOL TARTRATE 25MG TABLET PO SCH (09:39)
[2017-07-14] MEDS: LEVETIRACETAM 500MG TABLET PO SCH (09:39)
[2017-07-14] MEDS: CITALOPRAM HYDROBROMIDE 10MG TABLET PO SCH (09:40)
[2017-07-14] MEDS: MEMANTINE HCL 10MG TABLET PO SCH (09:42)
[2017-07-14 10:04] LABS: TOTAL IRON BINDING CAPACITY 155 ug/dL (250-450)
[2017-07-14] MEDS ORDERED: AMLODIPINE 2.5MG TABLET PO SCH (10:15)
[2017-07-14] MEDS: CEFTRIAXONE 1 G PREMIX 50 ML IV SCH (10:45)
[2017-07-14] MEDS ORDERED: EPOETIN ALFA 10000UNITS/ML VIAL SUBCUT SCH (21:00)
[2017-07-14] MEDS ORDERED: SENNOSIDES/DOCUSATE SOD 8.6/50MG TABLET PO PRN (21:00)
== END 2017-07-14 12:10 | DRG 480 ==
LOC: ER 21:55 → 6EST 22:43 → ENRESERV 22:50 → 8WST 07-12 11:02
PROVIDERS: ADMIT Internal Medicine Geriatric Medicine; ATTEND Internal Medicine Geriatric Medicine
PROC: 0QS636Z Reposition Right Upper Femur with Intramedullary Internal Fixation Device, Percutaneous Approach (ICD-10-PCS; principal; 2017-07-11 12:30)
PROC: 5A1D70Z Performance of Urinary Filtration, Intermittent, Less than 6 Hours Per Day (ICD-10-PCS; 2017-07-12)
PROC: 5A1D70Z Performance of Urinary Filtration, Intermittent, Less than 6 Hours Per Day (ICD-10-PCS; 2017-07-14)
DX: S72.141A Displaced intertrochanteric fracture of right femur, initial encounter for closed fracture (principal); N18.6 End stage renal disease; G93.41 Metabolic encephalopathy; I13.11 Hypertensive heart and chronic kidney disease without heart failure, with stage 5 chronic kidney disease, or end stage renal disease; E11.22 Type 2 diabetes mellitus with diabetic chronic kidney disease; N30.00 Acute cystitis without hematuria; K92.2 Gastrointestinal hemorrhage, unspecified; D53.9 Nutritional anemia, unspecified; M81.0 Age-related osteoporosis without current pathological fracture; K21.9 Gastro-esophageal reflux disease without esophagitis; G40.909 Epilepsy, unspecified, not intractable, without status epilepticus; F01.50 Vascular dementia, unspecified severity, without behavioral disturbance, psychotic disturbance, mood disturbance, and anxiety; F12.10 Cannabis abuse, uncomplicated; F32.9 Major depressive disorder, single episode, unspecified; F41.9 Anxiety disorder, unspecified; J44.9 Chronic obstructive pulmonary disease, unspecified; K59.00 Constipation, unspecified; S72.121A Displaced fracture of lesser trochanter of right femur, initial encounter for closed fracture; N40.0 Benign prostatic hyperplasia without lower urinary tract symptoms; W01.0XXA Fall on same level from slipping, tripping and stumbling without subsequent striking against object, initial encounter; Y92.009 Unspecified place in unspecified non-institutional (private) residence as the place of occurrence of the external cause; Z79.02 Long term (current) use of antithrombotics/antiplatelets; Z79.84 Long term (current) use of oral hypoglycemic drugs; Z79.899 Other long term (current) drug therapy; Z86.73 Personal history of transient ischemic attack (TIA), and cerebral infarction without residual deficits; Z99.2 Dependence on renal dialysis; Y93.89 Activity, other specified; Y99.8 Other external cause status; Z90.49 Acquired absence of other specified parts of digestive tract
CPT/HCPCS: 36415; 71045; 72170; 73502; 73552; 78582; 80048; 80053; 80061; 80305; 81003; 82550; 82553; 82962; 83540; 83550; 83735; 84443; 84484; 85025; 85379; 85610; 85730; 86850; 86900; 87086; 93005; 93306; 93970; 94640; 96374; 96375; 96376; 97110; 97116; 97162; 97164; 97530; 99285; A4216; A9558; J0171; J0696; J1170; J1580; J1650; J1815; J1885; J2250; J2270; J2274; J2405; J2704; J2710; J3010; J3490; J7050; J7620; J8597

== ENCOUNTER 2018-06-18 19:45 | Inpatient (IN) | payer MEDICARE, MEDICAID ==
[~2018-06-18] VITALS: Ht 188 cm; Wt 76.7 kg
[~2018-06-18 19:45] MED LIST changes: -GLIM2TAB2 PO
[2018-06-18] MEDS ORDERED: HYDRALAZINE 20MG/ML VIAL IV ONE (21:45)
[2018-06-18] MEDS ORDERED: LEVETIRACETAM 500MG PREMIX 100 ML IV ONE (21:45)
[2018-06-18 22:12] LABS: BASOPHILS % 1.3 % (0.0-2.0); HEMATOCRIT. 32.9 % (42.0-52.0); HEMOGLOBIN. 11.2 g/dL (14.0-18.0); LYMPHOCYTES % 30.7 % (20.0-50.0); MEAN CORPUSCULAR VOLUME 97.1 fL (80.0-94.0); MEAN PLATELET VOLUME 7.8 fl (7.4-10.4); MONOCYTES % 8.1 % (2.0-8.0); NEUTROPHILS % 58.9 % (40.0-76.0); PLATELET 133 x1000/uL (130-400); RED BLOOD CELL COUNT 3.39 mill/uL (4.7-6.1); RED CELL DISTRIBUTION WIDTH 15.8 % (11.6-14.6)
[2018-06-18 22:15] LABS: CHLORIDE 101 mEq/L (98-107)
[2018-06-18 22:18] LABS: INR 1.2; PARTIAL THROMBOPLASTIN TIME 28.1 sec (23.4-31.0); PROTHROMBIN TIME 12.5 sec (9.6-11.0)
[2018-06-18 22:19] LABS: ETHANOL BLOOD < 10 mg/dL
[2018-06-18] MEDS ORDERED: NICARDIPINE 40MG/200ML PREMIX 200 ML IV STA (23:33)
[2018-06-19] VITALS (56 sets, daily range): BP systolic 112–150; BP diastolic 54–99
[2018-06-19] MEDS ORDERED: NICARDIPINE 40MG/200ML PREMIX 200 ML IV PRN (03:45)
[2018-06-19] MEDS: NICARDIPINE 100 MG in SODIUM CHLORIDE 0.9% 60 ML IV PRN ×2 (06:41→14:11)
[2018-06-19] MEDS ORDERED: ONDANSETRON HCL 4MG/2ML INJ IV PRN (07:00)
[2018-06-19] MEDS ORDERED: ACETAMINOPHEN 325MG TABLET PO PRN (07:00)
[2018-06-19] MEDS ORDERED: LEVETIRACETAM 500MG PREMIX 100 ML IV ONE (07:15)
[2018-06-19] MEDS ORDERED: NEBIVOLOL HCL 5 MG TABLET PO SCH (09:00)
[2018-06-19] MEDS ORDERED: LOSARTAN POTASSIUM 50 MG TABLET PO SCH (09:00)
[2018-06-19] MEDS ORDERED: MEMANTINE HCL 5MG TABLET PO SCH (09:00)
[2018-06-19] MEDS ORDERED: LEVETIRACETAM 500MG TABLET PO SCH (09:00)
[2018-06-19] MEDS ORDERED: LEVETIRACETAM 500MG in SODIUM CHLORIDE 0.9% 100ML IV SCH (09:00)
[2018-06-19] MEDS ORDERED: DEXTROSE 50% WATER 50ML SYRINGE IV PRN (09:15)
[2018-06-19 10:34] LABS: BASOPHILS % 1.4 % (0.0-2.0); EOSINOPHILS % 0.8 % (0.0-5.0); HEMATOCRIT. 33.7 % (42.0-52.0); HEMOGLOBIN. 11.5 g/dL (14.0-18.0); MEAN CORPUSCULAR HEMOGLOBIN 32.9 pg (28.0-32.0); MEAN CORPUSCULAR VOLUME 96.8 fL (80.0-94.0); MEAN PLATELET VOLUME 7.9 fl (7.4-10.4); MONOCYTES % 7.6 % (2.0-8.0); NEUTROPHILS % 50.2 % (40.0-76.0); PLATELET 139 x1000/uL (130-400); RED BLOOD CELL COUNT 3.48 mill/uL (4.7-6.1); RED CELL DISTRIBUTION WIDTH 15.5 % (11.6-14.6)
[2018-06-19] MEDS ORDERED: POTASSIUM CHLORIDE 8 MEQ TABLET.SA PO NR (11:00)
[2018-06-19] MEDS ORDERED: IOHEXOL-350 100 ML BOTTLE ONE (11:04)
[2018-06-19] MEDS: CITALOPRAM HYDROBROMIDE 10MG TABLET PO SCH (11:19)
[2018-06-19] MEDS: FOLIC ACID/VITAMIN B COMP W-C TABLET PO SCH (11:20)
[2018-06-19] MEDS: GLIMEPIRIDE 2MG TABLET PO SCH (11:20)
[2018-06-19] MEDS: GALANTAMINE HBR 8MG ER CAPSULE 24HR PO SCH (11:20)
[2018-06-19] MEDS: AMLODIPINE 5MG TABLET PO SCH ×2 (11:21→20:38)
[2018-06-19] MEDS: BLOOD SUGAR DIAGNOSTIC STRIP TEST SCH ×3 (11:31→20:39)
[2018-06-19] MEDS: SEVELAMER CARBONATE 800 MG TABLET PO SCH ×2 (11:32→17:31)
[2018-06-19] MEDS: INSULIN LISPRO 100 UNITS/ML SUBCUT SCH ×3 (11:57→20:39)
[2018-06-19] MEDS: MEMANTINE HCL 5MG TABLET PO SCH (11:58)
[2018-06-19] MEDS ORDERED: LOSARTAN POTASSIUM 50 MG TABLET PO NR (13:45)
[2018-06-19] MEDS ORDERED: AMLODIPINE 5MG TABLET PO NR (13:45)
[2018-06-19] MEDS: HYDRALAZINE HCL 100MG TABLET PO SCH ×2 (14:11→22:09)
[2018-06-19] MEDS: ATORVASTATIN CALCIUM 20MG TABLET PO SCH (20:37)
[2018-06-19] MEDS: QUETIAPINE FUMARATE 25MG TABLET PO SCH (20:37)
[2018-06-19] MEDS: LEVETIRACETAM 500MG TABLET PO SCH (20:38)
[2018-06-19] MEDS: METOPROLOL TARTRATE 100MG TABLET PO SCH (20:39)
[2018-06-19] MEDS ORDERED: LEVETIRACETAM 500 MG in SODIUM CHLORIDE 0.9% 100 ML IV SCH (21:00)
[2018-06-20] VITALS (39 sets, daily range): BP systolic 120–161; BP diastolic 58–95
[2018-06-20] MEDS: HYDRALAZINE HCL 100MG TABLET PO SCH ×2 (06:01→12:47)
[2018-06-20] MEDS: LOSARTAN POTASSIUM 100 MG TABLET PO SCH (06:01)
[2018-06-20] MEDS: GLIMEPIRIDE 2MG TABLET PO SCH (06:02)
[2018-06-20] MEDS: AMLODIPINE 5MG TABLET PO SCH (06:02)
[2018-06-20] MEDS: BLOOD SUGAR DIAGNOSTIC STRIP TEST SCH ×4 (06:02→21:00)
[2018-06-20] MEDS: METOPROLOL TARTRATE 100MG TABLET PO SCH (06:02)
[2018-06-20] MEDS: SEVELAMER CARBONATE 800 MG TABLET PO SCH ×3 (06:02→17:38)
[2018-06-20] MEDS: INSULIN LISPRO 100 UNITS/ML SUBCUT SCH ×4 (06:03→21:00)
[2018-06-20] MEDS: GALANTAMINE HBR 8MG ER CAPSULE 24HR PO SCH (08:07)
[2018-06-20] MEDS: MEMANTINE HCL 5MG TABLET PO SCH (08:07)
[2018-06-20] MEDS: CITALOPRAM HYDROBROMIDE 10MG TABLET PO SCH (08:08)
[2018-06-20] MEDS: LEVETIRACETAM 500MG TABLET PO SCH (08:08)
[2018-06-20] MEDS: FOLIC ACID/VITAMIN B COMP W-C TABLET PO SCH (08:08)
[2018-06-20 12:55] LABS: EOSINOPHILS % 1.1 % (0.0-5.0); HEMATOCRIT. 34.6 % (42.0-52.0); HEMOGLOBIN. 11.7 g/dL (14.0-18.0); LYMPHOCYTES % 33.1 % (20.0-50.0); MEAN CORPUSCULAR HEMOGLOBIN 32.8 pg (28.0-32.0); MEAN CORPUSCULAR VOLUME 96.9 fL (80.0-94.0); MEAN PLATELET VOLUME 8.1 fl (7.4-10.4); MONOCYTES % 8.1 % (2.0-8.0); NEUTROPHILS % 56.7 % (40.0-76.0); PLATELET 144 x1000/uL (130-400); RED BLOOD CELL COUNT 3.57 mill/uL (4.7-6.1)
[2018-06-21] VITALS (7 sets, daily range): BP systolic 122–157; BP diastolic 57–79
[2018-06-21] MEDS: HYDRALAZINE HCL 100MG TABLET PO SCH ×3 (05:32→14:01)
[2018-06-21] MEDS: DEXTROSE 50% WATER 50ML SYRINGE IV PRN ×2 (05:44→05:45)
[2018-06-21] MEDS: BLOOD SUGAR DIAGNOSTIC STRIP TEST SCH ×4 (06:19→21:01)
[2018-06-21 06:57] LABS: BASOPHILS % 0.6 % (0.0-2.0); EOSINOPHILS % 0.9 % (0.0-5.0); HEMATOCRIT. 35.9 % (42.0-52.0); HEMOGLOBIN. 12.1 g/dL (14.0-18.0); LYMPHOCYTES % 34.1 % (20.0-50.0); MEAN CORPUSCULAR HEMOGLOBIN 32.7 pg (28.0-32.0); MEAN CORPUSCULAR VOLUME 97.1 fL (80.0-94.0); MEAN PLATELET VOLUME 8.5 fl (7.4-10.4); MONOCYTES % 9.9 % (2.0-8.0); NEUTROPHILS % 54.5 % (40.0-76.0); PLATELET 151 x1000/uL (130-400); RED BLOOD CELL COUNT 3.69 mill/uL (4.7-6.1); RED CELL DISTRIBUTION WIDTH 16.6 % (11.6-14.6)
[2018-06-21] MEDS: INSULIN LISPRO 100 UNITS/ML SUBCUT SCH ×4 (08:10→21:00)
[2018-06-21] MEDS ORDERED: DOXAZOSIN MESYLATE 2MG TABLET PO SCH ×2 (08:30→21:00)
[2018-06-21] MEDS: GLIMEPIRIDE 2MG TABLET PO SCH (09:49)
[2018-06-21] MEDS: CITALOPRAM HYDROBROMIDE 10MG TABLET PO SCH (09:49)
[2018-06-21] MEDS: GALANTAMINE HBR 8MG ER CAPSULE 24HR PO SCH (09:49)
[2018-06-21] MEDS: LEVETIRACETAM 500MG TABLET PO SCH ×3 (09:49→20:59)
[2018-06-21] MEDS: LOSARTAN POTASSIUM 100 MG TABLET PO SCH (09:49)
[2018-06-21] MEDS: METOPROLOL TARTRATE 100MG TABLET PO SCH ×3 (09:50→21:00)
[2018-06-21] MEDS: MEMANTINE HCL 5MG TABLET PO SCH (09:51)
[2018-06-21] MEDS: FOLIC ACID/VITAMIN B COMP W-C TABLET PO SCH (09:51)
[2018-06-21] MEDS: AMLODIPINE 5MG TABLET PO SCH ×3 (09:51→21:02)
[2018-06-21] MEDS: SEVELAMER CARBONATE 800 MG TABLET PO SCH ×3 (09:52→19:58)
[2018-06-21] MEDS: ATORVASTATIN CALCIUM 20MG TABLET PO SCH ×2 (20:59)
[2018-06-21] MEDS: QUETIAPINE FUMARATE 25MG TABLET PO SCH ×2 (21:02)
== END 2018-06-21 21:48 | DRG 64 ==
LOC: ER 19:45 → MICUNO 06-19 00:25 → EDBEDREQTM 06-19 00:30 → EDBEDREQDT 06-19 00:30 → EDBEDREQ 06-19 00:30 → ENRESERV 06-19 03:48 → 7WST 06-20 10:00
PROVIDERS: ADMIT Internal Medicine Geriatric Medicine; ATTEND Internal Medicine Geriatric Medicine
PROC: 5A1D70Z Performance of Urinary Filtration, Intermittent, Less than 6 Hours Per Day (ICD-10-PCS; principal; 2018-06-20)
PROC: 5A1D70Z Performance of Urinary Filtration, Intermittent, Less than 6 Hours Per Day (ICD-10-PCS; 2018-06-21)
DX: I61.0 Nontraumatic intracerebral hemorrhage in hemisphere, subcortical (principal); N18.6 End stage renal disease; I12.0 Hypertensive chronic kidney disease with stage 5 chronic kidney disease or end stage renal disease; F01.51 Vascular dementia, unspecified severity, with behavioral disturbance; G81.91 Hemiplegia, unspecified affecting right dominant side; D63.1 Anemia in chronic kidney disease; E87.6 Hypokalemia; I16.0 Hypertensive urgency; E11.43 Type 2 diabetes mellitus with diabetic autonomic (poly)neuropathy; E11.22 Type 2 diabetes mellitus with diabetic chronic kidney disease; K31.84 Gastroparesis; G40.909 Epilepsy, unspecified, not intractable, without status epilepticus; J44.9 Chronic obstructive pulmonary disease, unspecified; E11.649 Type 2 diabetes mellitus with hypoglycemia without coma; I25.10 Atherosclerotic heart disease of native coronary artery without angina pectoris; F32.9 Major depressive disorder, single episode, unspecified; M19.90 Unspecified osteoarthritis, unspecified site; K21.9 Gastro-esophageal reflux disease without esophagitis; Z90.49 Acquired absence of other specified parts of digestive tract; Z99.2 Dependence on renal dialysis; Z87.11 Personal history of peptic ulcer disease; Z91.14 Patient's other noncompliance with medication regimen; Z79.899 Other long term (current) drug therapy; Z79.4 Long term (current) use of insulin; Z86.73 Personal history of transient ischemic attack (TIA), and cerebral infarction without residual deficits; Z79.02 Long term (current) use of antithrombotics/antiplatelets
CPT/HCPCS: 36415; 70496; 71045; 80048; 80061; 80320; 82962; 83036; 83880; 84443; 84484; 93005; 96365; 96375; 97162; 99291; J0360; J1953; J3490; J7040; J7050; Q9967; G0480

== ENCOUNTER 2018-06-21 21:52 | Inpatient (IN) | payer MEDICARE ==
[~2018-06-21] VITALS: Ht 185.4 cm; Wt 75.7 kg
[2018-06-21] MEDS ORDERED: DEXTROSE 50% WATER 50ML SYRINGE IV PRN (23:30)
[2018-06-21] MEDS ORDERED: ACETAMINOPHEN 325MG TABLET PO PRN (23:30)
[2018-06-22] VITALS: BP 130/80
[2018-06-22] MEDS: BLOOD SUGAR DIAGNOSTIC STRIP TEST SCH ×4 (05:57→21:00)
[2018-06-22] MEDS: HYDRALAZINE HCL 100MG TABLET PO SCH ×3 (05:57→22:00)
[2018-06-22] MEDS: GLIMEPIRIDE 2MG TABLET PO SCH (07:00)
[2018-06-22 08:00] VITALS: BP 130/65
[2018-06-22] MEDS ORDERED: LACTULOSE 20G/30ML UDC PO NR (08:30)
[2018-06-22] MEDS ORDERED: LACTULOSE 20G/30ML UDC PO PRN (08:30)
[2018-06-22 08:42] LABS: BASOPHILS % 1.2 % (0.0-2.0); EOSINOPHILS % 0.9 % (0.0-5.0); HEMATOCRIT. 35.9 % (42.0-52.0); HEMOGLOBIN. 12.1 g/dL (14.0-18.0); LYMPHOCYTES % 39.3 % (20.0-50.0); MEAN CORPUSCULAR HEMOGLOBIN 32.6 pg (28.0-32.0); MEAN CORPUSCULAR VOLUME 96.7 fL (80.0-94.0); MONOCYTES % 7.4 % (2.0-8.0); NEUTROPHILS % 51.2 % (40.0-76.0); PLATELET 150 x1000/uL (130-400); RED BLOOD CELL COUNT 3.72 mill/uL (4.7-6.1); RED CELL DISTRIBUTION WIDTH 15.8 % (11.6-14.6)
[2018-06-22] MEDS: LOSARTAN POTASSIUM 100 MG TABLET PO SCH (09:00)
[2018-06-22] MEDS: AMLODIPINE 5MG TABLET PO SCH ×2 (09:00→21:00)
[2018-06-22] MEDS: INSULIN LISPRO 100 UNITS/ML SUBCUT SCH ×4 (09:00→21:00)
[2018-06-22] MEDS: METOPROLOL TARTRATE 100MG TABLET PO SCH ×2 (09:00→21:00)
[2018-06-22] MEDS: GALANTAMINE HBR 8MG ER CAPSULE 24HR PO SCH (09:00)
[2018-06-22 09:01] LABS: CHLORIDE 100 mEq/L (98-107)
[2018-06-22] MEDS: CITALOPRAM HYDROBROMIDE 10MG TABLET PO SCH (09:32)
[2018-06-22] MEDS: FOLIC ACID/VITAMIN B COMP W-C TABLET PO SCH (09:32)
[2018-06-22] MEDS: LEVETIRACETAM 500MG TABLET PO SCH ×2 (09:33→22:46)
[2018-06-22] MEDS: MEMANTINE HCL 5MG TABLET PO SCH (09:33)
[2018-06-22] MEDS: SEVELAMER CARBONATE 800 MG TABLET PO SCH ×3 (09:39→17:00)
[2018-06-22] MEDS: DOCUSATE SODIUM SUGAR FREE 100MG/10ML UDC NG SCH (15:45)
[2018-06-22 20:00] VITALS: BP 121/61
[2018-06-22] MEDS: DOXAZOSIN MESYLATE 2MG TABLET PO SCH (22:41)
[2018-06-22] MEDS: ATORVASTATIN CALCIUM 20MG TABLET PO SCH (22:41)
[2018-06-22] MEDS: QUETIAPINE FUMARATE 25MG TABLET PO SCH (22:42)
[2018-06-23] MEDS: HYDRALAZINE HCL 100MG TABLET PO SCH ×3 (06:00→22:00)
[2018-06-23] MEDS: BLOOD SUGAR DIAGNOSTIC STRIP TEST SCH ×4 (06:31→21:31)
[2018-06-23] MEDS: INSULIN LISPRO 100 UNITS/ML SUBCUT SCH ×4 (06:31→21:00)
[2018-06-23] MEDS: GLIMEPIRIDE 2MG TABLET PO SCH (07:00)
[2018-06-23 07:15] LABS: BASOPHILS % 0.8 % (0.0-2.0); HEMATOCRIT. 32.8 % (42.0-52.0); HEMOGLOBIN. 11.1 g/dL (14.0-18.0); LYMPHOCYTES % 34.2 % (20.0-50.0); MEAN CORPUSCULAR HEMOGLOBIN 32.8 pg (28.0-32.0); MEAN PLATELET VOLUME 9.1 fl (7.4-10.4); MONOCYTES % 8.8 % (2.0-8.0); NEUTROPHILS % 55.2 % (40.0-76.0); PLATELET 155 x1000/uL (130-400); RED BLOOD CELL COUNT 3.39 mill/uL (4.7-6.1); RED CELL DISTRIBUTION WIDTH 16.3 % (11.6-14.6)
[2018-06-23 08:00] VITALS: BP 151/65
[2018-06-23] MEDS: CITALOPRAM HYDROBROMIDE 10MG TABLET PO SCH (08:36)
[2018-06-23] MEDS: DOCUSATE SODIUM SUGAR FREE 100MG/10ML UDC NG SCH (08:36)
[2018-06-23] MEDS: LOSARTAN POTASSIUM 100 MG TABLET PO SCH (08:37)
[2018-06-23] MEDS: METOPROLOL TARTRATE 100MG TABLET PO SCH ×2 (08:37→21:00)
[2018-06-23] MEDS: AMLODIPINE 5MG TABLET PO SCH ×2 (08:38→21:30)
[2018-06-23] MEDS: MEMANTINE HCL 5MG TABLET PO SCH (08:38)
[2018-06-23] MEDS: GALANTAMINE HBR 8MG ER CAPSULE 24HR PO SCH (08:38)
[2018-06-23] MEDS: SEVELAMER CARBONATE 800 MG TABLET PO SCH ×3 (08:38→16:44)
[2018-06-23] MEDS: FOLIC ACID/VITAMIN B COMP W-C TABLET PO SCH (08:38)
[2018-06-23] MEDS: LEVETIRACETAM 500MG TABLET PO SCH ×2 (08:38→21:30)
[2018-06-23] MEDS ORDERED: BISACODYL 5MG TABLET PO PRN (16:00)
[2018-06-23] MEDS ORDERED: NA PHOS,M-B/NA PHOS,DI-BA ENEMA 118ML PR NR (17:00)
[2018-06-23] MEDS: ONDANSETRON HCL 4MG/2ML INJ IV PRN (17:49)
[2018-06-23 20:00] VITALS: BP 145/73
[2018-06-23] MEDS: ATORVASTATIN CALCIUM 20MG TABLET PO SCH (21:30)
[2018-06-23] MEDS: QUETIAPINE FUMARATE 25MG TABLET PO SCH (21:31)
[2018-06-23] MEDS: DOXAZOSIN MESYLATE 2MG TABLET PO SCH (21:31)
[2018-06-24] MEDS: GLIMEPIRIDE 2MG TABLET PO SCH (06:13)
[2018-06-24] MEDS: BLOOD SUGAR DIAGNOSTIC STRIP TEST SCH ×4 (06:13→21:44)
[2018-06-24] MEDS: HYDRALAZINE HCL 100MG TABLET PO SCH ×3 (06:13→22:00)
[2018-06-24] MEDS: INSULIN LISPRO 100 UNITS/ML SUBCUT SCH ×4 (06:14→21:46)
[2018-06-24 08:00] VITALS: BP 110/65
[2018-06-24 08:44] VITALS: BP_SYST 110
[2018-06-24] MEDS: AMLODIPINE 5MG TABLET PO SCH ×2 (08:47→21:44)
[2018-06-24] MEDS: GALANTAMINE HBR 8MG ER CAPSULE 24HR PO SCH (09:10)
[2018-06-24] MEDS: FOLIC ACID/VITAMIN B COMP W-C TABLET PO SCH (09:11)
[2018-06-24] MEDS: LEVETIRACETAM 500MG TABLET PO SCH ×2 (09:11→21:43)
[2018-06-24] MEDS: CITALOPRAM HYDROBROMIDE 10MG TABLET PO SCH (09:11)
[2018-06-24] MEDS: METOPROLOL TARTRATE 100MG TABLET PO SCH ×2 (09:11→21:00)
[2018-06-24] MEDS: SEVELAMER CARBONATE 800 MG TABLET PO SCH ×3 (09:11→17:22)
[2018-06-24] MEDS: DOCUSATE SODIUM SUGAR FREE 100MG/10ML UDC NG SCH (09:11)
[2018-06-24] MEDS: LOSARTAN POTASSIUM 100 MG TABLET PO SCH (09:11)
[2018-06-24] MEDS: MEMANTINE HCL 5MG TABLET PO SCH (09:11)
[2018-06-24 10:00] VITALS: BP 101/63
[2018-06-24 20:00] VITALS: BP 135/65
[2018-06-24] MEDS: ATORVASTATIN CALCIUM 20MG TABLET PO SCH (21:43)
[2018-06-24] MEDS: QUETIAPINE FUMARATE 25MG TABLET PO SCH (21:44)
[2018-06-24] MEDS: DOXAZOSIN MESYLATE 2MG TABLET PO SCH (21:49)
[2018-06-25] MEDS: HYDRALAZINE HCL 100MG TABLET PO SCH ×3 (05:19→22:00)
[2018-06-25] MEDS: BLOOD SUGAR DIAGNOSTIC STRIP TEST SCH ×4 (05:39→21:00)
[2018-06-25] MEDS: INSULIN LISPRO 100 UNITS/ML SUBCUT SCH ×4 (05:40→21:00)
[2018-06-25] MEDS: GLIMEPIRIDE 2MG TABLET PO SCH (05:51)
[2018-06-25 06:05] LABS: BASOPHILS % 1.1 % (0.0-2.0); EOSINOPHILS % 1.2 % (0.0-5.0); HEMATOCRIT. 30.5 % (42.0-52.0); HEMOGLOBIN. 10.5 g/dL (14.0-18.0); LYMPHOCYTES % 33.8 % (20.0-50.0); MEAN CORPUSCULAR HEMOGLOBIN 33.1 pg (28.0-32.0); MEAN CORPUSCULAR VOLUME 96.3 fL (80.0-94.0); MEAN PLATELET VOLUME 8.8 fl (7.4-10.4); MONOCYTES % 8.9 % (2.0-8.0); PLATELET 143 x1000/uL (130-400); RED BLOOD CELL COUNT 3.17 mill/uL (4.7-6.1)
[2018-06-25] MEDS: METOPROLOL TARTRATE 100MG TABLET PO SCH ×2 (07:52→21:00)
[2018-06-25] MEDS: LOSARTAN POTASSIUM 100 MG TABLET PO SCH (07:52)
[2018-06-25] MEDS: AMLODIPINE 5MG TABLET PO SCH ×2 (07:52→22:52)
[2018-06-25 08:00] VITALS: BP 139/61
[2018-06-25] MEDS: FOLIC ACID/VITAMIN B COMP W-C TABLET PO SCH (08:14)
[2018-06-25] MEDS: SEVELAMER CARBONATE 800 MG TABLET PO SCH ×3 (08:14→17:33)
[2018-06-25] MEDS: LEVETIRACETAM 500MG TABLET PO SCH ×2 (08:14→22:51)
[2018-06-25] MEDS: CITALOPRAM HYDROBROMIDE 10MG TABLET PO SCH (08:14)
[2018-06-25] MEDS: MEMANTINE HCL 5MG TABLET PO SCH (08:14)
[2018-06-25] MEDS: DOCUSATE SODIUM SUGAR FREE 100MG/10ML UDC NG SCH (08:17)
[2018-06-25] MEDS: GALANTAMINE HBR 8MG ER CAPSULE 24HR PO SCH (11:21)
[2018-06-25] MEDS: ONDANSETRON HCL 4MG/2ML INJ IV PRN (13:00)
[2018-06-25 20:00] VITALS: BP 156/79
[2018-06-25] MEDS ORDERED: EPOETIN ALFA 10000UNITS/ML VIAL SUBCUT SCH (21:00)
[2018-06-25 22:15] VITALS: BP 138/78
[2018-06-25] MEDS: ATORVASTATIN CALCIUM 20MG TABLET PO SCH (22:51)
[2018-06-25] MEDS: QUETIAPINE FUMARATE 25MG TABLET PO SCH (22:52)
[2018-06-25] MEDS: DOXAZOSIN MESYLATE 2MG TABLET PO SCH (22:53)
[2018-06-26 05:22] LABS: BASOPHILS % 0.7 % (0.0-2.0); EOSINOPHILS % 1.2 % (0.0-5.0); HEMATOCRIT. 30.6 % (42.0-52.0); HEMOGLOBIN. 10.6 g/dL (14.0-18.0); LYMPHOCYTES % 32.6 % (20.0-50.0); MEAN CORPUSCULAR VOLUME 95.5 fL (80.0-94.0); MEAN PLATELET VOLUME 8.2 fl (7.4-10.4); MONOCYTES % 10.4 % (2.0-8.0); NEUTROPHILS % 55.1 % (40.0-76.0); PLATELET 147 x1000/uL (130-400); RED CELL DISTRIBUTION WIDTH 15.9 % (11.6-14.6)
[2018-06-26] MEDS: BLOOD SUGAR DIAGNOSTIC STRIP TEST SCH ×4 (06:27→21:00)
[2018-06-26] MEDS: GLIMEPIRIDE 2MG TABLET PO SCH (06:27)
[2018-06-26] MEDS: INSULIN LISPRO 100 UNITS/ML SUBCUT SCH ×4 (06:27→21:00)
[2018-06-26] MEDS: HYDRALAZINE HCL 100MG TABLET PO SCH ×3 (06:27→22:00)
[2018-06-26 07:54] VITALS: BP 142/69
[2018-06-26] MEDS: GALANTAMINE HBR 8MG ER CAPSULE 24HR PO SCH (09:13)
[2018-06-26] MEDS: METOPROLOL TARTRATE 100MG TABLET PO SCH ×2 (09:14→22:17)
[2018-06-26] MEDS: AMLODIPINE 5MG TABLET PO SCH ×2 (09:14→21:00)
[2018-06-26] MEDS: LOSARTAN POTASSIUM 100 MG TABLET PO SCH (09:14)
[2018-06-26] MEDS: CITALOPRAM HYDROBROMIDE 10MG TABLET PO SCH (09:14)
[2018-06-26] MEDS: LEVETIRACETAM 500MG TABLET PO SCH ×2 (09:14→22:17)
[2018-06-26] MEDS: FOLIC ACID/VITAMIN B COMP W-C TABLET PO SCH (09:14)
[2018-06-26] MEDS: MEMANTINE HCL 5MG TABLET PO SCH (09:14)
[2018-06-26] MEDS: SEVELAMER CARBONATE 800 MG TABLET PO SCH ×3 (09:14→17:23)
[2018-06-26] MEDS: DOCUSATE SODIUM SUGAR FREE 100MG/10ML UDC NG SCH (09:15)
[2018-06-26 20:00] VITALS: BP 123/73
[2018-06-26] MEDS: ATORVASTATIN CALCIUM 20MG TABLET PO SCH (22:16)
[2018-06-26] MEDS: QUETIAPINE FUMARATE 25MG TABLET PO SCH (22:16)
[2018-06-26] MEDS: DOXAZOSIN MESYLATE 2MG TABLET PO SCH (22:18)
[2018-06-26] MEDS ORDERED: METOCLOPRAMIDE HCL 5MG TABLET PO PRN (22:45)
[2018-06-27 06:27] LABS: EOSINOPHILS % 1.4 % (0.0-5.0); HEMATOCRIT. 31.4 % (42.0-52.0); HEMOGLOBIN. 10.8 g/dL (14.0-18.0); LYMPHOCYTES % 33.4 % (20.0-50.0); MEAN CORPUSCULAR HEMOGLOBIN 33.4 pg (28.0-32.0); MEAN CORPUSCULAR VOLUME 96.5 fL (80.0-94.0); MEAN PLATELET VOLUME 8.9 fl (7.4-10.4); MONOCYTES % 10.2 % (2.0-8.0); PLATELET 174 x1000/uL (130-400); RED BLOOD CELL COUNT 3.25 mill/uL (4.7-6.1); RED CELL DISTRIBUTION WIDTH 16.3 % (11.6-14.6)
[2018-06-27] MEDS: BLOOD SUGAR DIAGNOSTIC STRIP TEST SCH ×4 (06:30→21:58)
[2018-06-27] MEDS: HYDRALAZINE HCL 100MG TABLET PO SCH ×3 (06:50→23:12)
[2018-06-27 08:00] VITALS: BP 149/59
[2018-06-27] MEDS ORDERED: SORBITOL 70% SOLN 30ML PO ONE (08:30)
[2018-06-27] MEDS: INSULIN LISPRO 100 UNITS/ML SUBCUT SCH ×4 (09:00→21:00)
[2018-06-27] MEDS: FOLIC ACID/VITAMIN B COMP W-C TABLET PO SCH (09:28)
[2018-06-27] MEDS: MEMANTINE HCL 5MG TABLET PO SCH (09:28)
[2018-06-27] MEDS: DOCUSATE SODIUM SUGAR FREE 100MG/10ML UDC NG SCH (09:28)
[2018-06-27] MEDS: LEVETIRACETAM 500MG TABLET PO SCH ×2 (09:28→21:54)
[2018-06-27] MEDS: SEVELAMER CARBONATE 800 MG TABLET PO SCH ×3 (09:29→17:46)
[2018-06-27] MEDS: GALANTAMINE HBR 8MG ER CAPSULE 24HR PO SCH (09:29)
[2018-06-27] MEDS: GLIMEPIRIDE 2MG TABLET PO SCH (09:30)
[2018-06-27] MEDS: CITALOPRAM HYDROBROMIDE 10MG TABLET PO SCH (09:30)
[2018-06-27] MEDS: LOSARTAN POTASSIUM 100 MG TABLET PO SCH (09:30)
[2018-06-27] MEDS: METOPROLOL TARTRATE 100MG TABLET PO SCH ×2 (09:30→21:00)
[2018-06-27] MEDS: METOCLOPRAMIDE HCL 5MG TABLET PO SCH ×2 (09:31→11:15)
[2018-06-27] MEDS: AMLODIPINE 5MG TABLET PO SCH ×2 (09:31→21:00)
[2018-06-27] MEDS: METOCLOPRAMIDE HCL 10MG/2ML VIAL IV SCH ×2 (12:00→17:48)
[2018-06-27 20:00] VITALS: BP 118/62
[2018-06-27] MEDS: DOXAZOSIN MESYLATE 2MG TABLET PO SCH (21:55)
[2018-06-27] MEDS: QUETIAPINE FUMARATE 25MG TABLET PO SCH (21:56)
[2018-06-27] MEDS: ATORVASTATIN CALCIUM 20MG TABLET PO SCH (22:11)
[2018-06-28] MEDS: METOCLOPRAMIDE HCL 10MG/2ML VIAL IV SCH
[2018-06-28] MEDS: METOCLOPRAMIDE HCL 5MG TABLET PO SCH ×2 (00:13→21:20)
[2018-06-28] MEDS: HYDRALAZINE HCL 100MG TABLET PO SCH ×3 (05:47→21:18)
[2018-06-28] MEDS: BLOOD SUGAR DIAGNOSTIC STRIP TEST SCH ×4 (05:50→21:21)
[2018-06-28] MEDS: GLIMEPIRIDE 2MG TABLET PO SCH (06:13)
[2018-06-28 06:39] LABS: HEMATOCRIT. 32.3 % (42.0-52.0); HEMOGLOBIN. 10.8 g/dL (14.0-18.0); LYMPHOCYTES % 29.8 % (20.0-50.0); MEAN CORPUSCULAR HEMOGLOBIN 32.5 pg (28.0-32.0); MEAN CORPUSCULAR VOLUME 96.9 fL (80.0-94.0); MEAN PLATELET VOLUME 9.1 fl (7.4-10.4); MONOCYTES % 10.8 % (2.0-8.0); NEUTROPHILS % 57.4 % (40.0-76.0); PLATELET 185 x1000/uL (130-400); RED BLOOD CELL COUNT 3.33 mill/uL (4.7-6.1); RED CELL DISTRIBUTION WIDTH 16.1 % (11.6-14.6)
[2018-06-28 07:56] VITALS: BP 133/64
[2018-06-28] MEDS: LOSARTAN POTASSIUM 100 MG TABLET PO SCH (08:21)
[2018-06-28] MEDS: METOPROLOL TARTRATE 100MG TABLET PO SCH ×2 (08:22→21:20)
[2018-06-28] MEDS: FOLIC ACID/VITAMIN B COMP W-C TABLET PO SCH (08:22)
[2018-06-28] MEDS: CITALOPRAM HYDROBROMIDE 10MG TABLET PO SCH (08:22)
[2018-06-28] MEDS: MEMANTINE HCL 5MG TABLET PO SCH (08:22)
[2018-06-28] MEDS: LEVETIRACETAM 500MG TABLET PO SCH ×2 (08:22→21:18)
[2018-06-28] MEDS: SEVELAMER CARBONATE 800 MG TABLET PO SCH ×3 (08:22→17:04)
[2018-06-28] MEDS: AMLODIPINE 5MG TABLET PO SCH ×3 (08:22→22:14)
[2018-06-28] MEDS: GALANTAMINE HBR 8MG ER CAPSULE 24HR PO SCH (08:23)
[2018-06-28] MEDS: DOCUSATE SODIUM SUGAR FREE 100MG/10ML UDC NG SCH (08:23)
[2018-06-28] MEDS: INSULIN LISPRO 100 UNITS/ML SUBCUT SCH ×4 (08:35→21:00)
[2018-06-28] MEDS ORDERED: DIPHENHYDRAMINE 25MG CAPSULE PO PRN (08:45)
[2018-06-28 20:00] VITALS: BP 157/66
[2018-06-28] MEDS: ATORVASTATIN CALCIUM 20MG TABLET PO SCH (21:18)
[2018-06-28] MEDS: QUETIAPINE FUMARATE 25MG TABLET PO SCH (21:18)
[2018-06-28] MEDS: DOXAZOSIN MESYLATE 2MG TABLET PO SCH (21:19)
[2018-06-29] MEDS: GLIMEPIRIDE 2MG TABLET PO SCH (06:02)
[2018-06-29] MEDS: METOCLOPRAMIDE HCL 5MG TABLET PO SCH ×4 (06:02→21:43)
[2018-06-29] MEDS: HYDRALAZINE HCL 100MG TABLET PO SCH ×3 (06:02→22:00)
[2018-06-29] MEDS: BLOOD SUGAR DIAGNOSTIC STRIP TEST SCH ×4 (06:03→21:49)
[2018-06-29] MEDS: INSULIN LISPRO 100 UNITS/ML SUBCUT SCH ×4 (06:03→21:00)
[2018-06-29 06:38] LABS: BASOPHILS % 1.1 % (0.0-2.0); EOSINOPHILS % 1.4 % (0.0-5.0); HEMATOCRIT. 31.6 % (42.0-52.0); HEMOGLOBIN. 10.7 g/dL (14.0-18.0); LYMPHOCYTES % 26.4 % (20.0-50.0); MEAN CORPUSCULAR HEMOGLOBIN 32.8 pg (28.0-32.0); MEAN CORPUSCULAR VOLUME 96.7 fL (80.0-94.0); MEAN PLATELET VOLUME 9.4 fl (7.4-10.4); MONOCYTES % 10.4 % (2.0-8.0); NEUTROPHILS % 60.7 % (40.0-76.0); PLATELET 194 x1000/uL (130-400); RED BLOOD CELL COUNT 3.27 mill/uL (4.7-6.1); RED CELL DISTRIBUTION WIDTH 16.1 % (11.6-14.6)
[2018-06-29 08:00] VITALS: BP 121/61
[2018-06-29] MEDS: DOCUSATE SODIUM SUGAR FREE 100MG/10ML UDC NG SCH (09:00)
[2018-06-29] MEDS: AMLODIPINE 5MG TABLET PO SCH ×2 (09:00→22:53)
[2018-06-29] MEDS: LOSARTAN POTASSIUM 100 MG TABLET PO SCH (09:00)
[2018-06-29] MEDS: METOPROLOL TARTRATE 100MG TABLET PO SCH ×2 (09:00→22:53)
[2018-06-29] MEDS: CITALOPRAM HYDROBROMIDE 10MG TABLET PO SCH (09:40)
[2018-06-29] MEDS: GALANTAMINE HBR 8MG ER CAPSULE 24HR PO SCH (09:41)
[2018-06-29] MEDS: LEVETIRACETAM 500MG TABLET PO SCH ×2 (09:41→21:40)
[2018-06-29] MEDS: SEVELAMER CARBONATE 800 MG TABLET PO SCH ×3 (09:41→17:14)
[2018-06-29] MEDS: FOLIC ACID/VITAMIN B COMP W-C TABLET PO SCH (09:41)
[2018-06-29] MEDS: MEMANTINE HCL 5MG TABLET PO SCH (09:46)
[2018-06-29 20:35] VITALS: BP 121/61
[2018-06-29] MEDS: ATORVASTATIN CALCIUM 20MG TABLET PO SCH (21:40)
[2018-06-29] MEDS: QUETIAPINE FUMARATE 25MG TABLET PO SCH (21:43)
[2018-06-29] MEDS: DOXAZOSIN MESYLATE 2MG TABLET PO SCH (21:45)
[2018-06-30] MEDS: GLIMEPIRIDE 2MG TABLET PO SCH (06:07)
[2018-06-30] MEDS: METOCLOPRAMIDE HCL 5MG TABLET PO SCH ×2 (06:07→12:34)
[2018-06-30] MEDS: BLOOD SUGAR DIAGNOSTIC STRIP TEST SCH ×2 (06:36→11:15)
[2018-06-30] MEDS: HYDRALAZINE HCL 100MG TABLET PO SCH (06:36)
[2018-06-30] MEDS: INSULIN LISPRO 100 UNITS/ML SUBCUT SCH ×2 (06:37→12:22)
[2018-06-30 08:00] VITALS: BP 128/63
[2018-06-30] MEDS: GALANTAMINE HBR 8MG ER CAPSULE 24HR PO SCH (08:48)
[2018-06-30] MEDS: LEVETIRACETAM 500MG TABLET PO SCH (08:48)
[2018-06-30] MEDS: METOPROLOL TARTRATE 100MG TABLET PO SCH (08:48)
[2018-06-30] MEDS: SEVELAMER CARBONATE 800 MG TABLET PO SCH ×2 (08:48→12:34)
[2018-06-30] MEDS: AMLODIPINE 5MG TABLET PO SCH (08:48)
[2018-06-30] MEDS: MEMANTINE HCL 5MG TABLET PO SCH (08:48)
[2018-06-30] MEDS: FOLIC ACID/VITAMIN B COMP W-C TABLET PO SCH (08:48)
[2018-06-30] MEDS: DOCUSATE SODIUM SUGAR FREE 100MG/10ML UDC NG SCH (08:48)
[2018-06-30] MEDS: CITALOPRAM HYDROBROMIDE 10MG TABLET PO SCH (08:48)
[2018-06-30] MEDS: LOSARTAN POTASSIUM 100 MG TABLET PO SCH (08:48)
[2018-06-30 12:40] VITALS: BP 123/74
== END 2018-06-30 14:20 | disposition home health service (06) | DRG 304 ==
PROVIDERS: ADMIT Psychiatry & Neurology Neurology; ATTEND Internal Medicine Geriatric Medicine
PROC: 4A10X4Z Monitoring of Central Nervous Electrical Activity, External Approach (ICD-10-PCS; principal; 2018-06-21)
PROC: 5A1D70Z Performance of Urinary Filtration, Intermittent, Less than 6 Hours Per Day (ICD-10-PCS; 2018-06-22)
PROC: 5A1D70Z Performance of Urinary Filtration, Intermittent, Less than 6 Hours Per Day (ICD-10-PCS; 2018-06-25)
PROC: 5A1D70Z Performance of Urinary Filtration, Intermittent, Less than 6 Hours Per Day (ICD-10-PCS; 2018-06-27)
DX: I16.0 Hypertensive urgency (principal); I61.0 Nontraumatic intracerebral hemorrhage in hemisphere, subcortical; N18.6 End stage renal disease; F33.1 Major depressive disorder, recurrent, moderate; I12.0 Hypertensive chronic kidney disease with stage 5 chronic kidney disease or end stage renal disease; I25.10 Atherosclerotic heart disease of native coronary artery without angina pectoris; D63.1 Anemia in chronic kidney disease; E11.22 Type 2 diabetes mellitus with diabetic chronic kidney disease; E11.43 Type 2 diabetes mellitus with diabetic autonomic (poly)neuropathy; E11.649 Type 2 diabetes mellitus with hypoglycemia without coma; E87.6 Hypokalemia; F01.50 Vascular dementia, unspecified severity, without behavioral disturbance, psychotic disturbance, mood disturbance, and anxiety; G40.909 Epilepsy, unspecified, not intractable, without status epilepticus; K31.84 Gastroparesis; K59.00 Constipation, unspecified; Z79.899 Other long term (current) drug therapy; Z83.3 Family history of diabetes mellitus; Z86.73 Personal history of transient ischemic attack (TIA), and cerebral infarction without residual deficits; Z99.2 Dependence on renal dialysis
CPT/HCPCS: 36415; 74018; 80048; 82962; 84134; 92523; 92610; 93970; 97110; 97116; 97162; 97167; 97530; 97535; J1815; J2405; J2765; J8597; Q0163

== ENCOUNTER 2018-07-30 13:19 | Inpatient (IN) | payer MEDICARE, MEDICAID ==
[~2018-07-30] VITALS: Ht 182.9 cm; Wt 69.4 kg
[~2018-07-30 13:19] MED LIST changes: -LOSA50TA20 PO; +LOSA50TA41 PO; -PLAVIX PO
[2018-07-30] MEDS ORDERED: ONDANSETRON HCL 4MG/2ML INJ IV STA (14:37)
[2018-07-30 15:19] LABS: HEMATOCRIT. 33.7 % (42.0-52.0); HEMOGLOBIN. 11.2 g/dL (14.0-18.0); MEAN CORPUSCULAR HEMOGLOBIN 32.5 pg (28.0-32.0); MEAN CORPUSCULAR VOLUME 97.6 fL (80.0-94.0); MEAN PLATELET VOLUME 8.4 fl (7.4-10.4); PLATELET 181 x1000/uL (130-400); RED BLOOD CELL COUNT 3.45 mill/uL (4.7-6.1)
[2018-07-30 15:24] LABS: CHLORIDE 106 mEq/L (98-107)
[2018-07-30 15:27] LABS: INR 1.3; PARTIAL THROMBOPLASTIN TIME 23.3 sec (23.4-31.0)
[2018-07-30] MEDS ORDERED: LORAZEPAM 2MG/ML CPJ IV ONE (15:30)
[2018-07-30] MEDS ORDERED: ONDANSETRON HCL 4MG/2ML INJ IV ONE (15:30)
[2018-07-30 15:37] LABS: PLATELET ESTIMATE NORMAL
[2018-07-30 15:49] LABS: PHOSPHORUS 1.1 mg/dL (2.5-4.9)
[2018-07-30] MEDS ORDERED: LEVETIRACETAM 500MG PREMIX 100 ML IV ONE (17:30)
[2018-07-30] MEDS ORDERED: ONDANSETRON HCL 4MG/2ML INJ IV PRN (19:15)
[2018-07-30] MEDS ORDERED: IPRATROPIUM/ALBUTEROL 0.5-3(2.5)MG/3ML NEB INH PRN (19:15)
[2018-07-30] MEDS ORDERED: HYDROMORPHONE HCL/PF 2MG/ML CPJ IV PRN (19:15)
[2018-07-30] MEDS ORDERED: ACETAMINOPHEN 325MG TABLET PO PRN (19:15)
[2018-07-30] MEDS ORDERED: DOCUSATE SODIUM 250MG CAPSULE PO ONE (19:30)
[2018-07-30] MEDS ORDERED: LEVETIRACETAM 500MG PREMIX 100 ML IV SCH (19:45)
[2018-07-30] MEDS ORDERED: LEVETIRACETAM 500MG TABLET PO SCH (21:00)
[2018-07-30 21:17] LABS: CLARITY URINE CLEAR (CLEAR); COLOR URINE YELLOW (YELLOW); KETONES URINE NEGATIVE (NEGATIVE); LEUKOCYTE ESTERASE URINE NEGATIVE (NEGATIVE); NITRITE URINE NEGATIVE (NEGATIVE); OCCULT BLOOD URINE NEGATIVE (NEGATIVE); PH URINE 7.5 (4.5-8.0); PROTEIN URINE 3+ (NEGATIVE); UROBILINOGEN URINE 0.2 E.U./dL (0.2-1.0)
[2018-07-30 21:28] LABS: *AMPHETAMINES SCREEN URINE NEGATIVE (NEGATIVE); *BARBITURATES SCREEN URINE NEGATIVE (NEGATIVE); *BENZODIAZEPINES SCREEN URINE NEGATIVE (NEGATIVE); *COCAINE SCREEN URINE NEGATIVE (NEGATIVE); CANNABINOID URINE SCREEN PRESUMTIVE POSITIVE (NEGATIVE); PHENCYCLIDINE URINE SCREEN NEGATIVE (NEGATIVE)
[2018-07-30 21:29] LABS: METHADONE URINE SCREEN NEGATIVE (NEGATIVE); OPIATES URINE SCREEN NEGATIVE (NEGATIVE)
[2018-07-30 23:00] VITALS: BP 195/84
[2018-07-30] MEDS: HYDRALAZINE HCL 100MG TABLET PO SCH (23:45)
[2018-07-30] MEDS: QUETIAPINE FUMARATE 25MG TABLET PO SCH (23:45)
[2018-07-30] MEDS: CLONIDINE 0.1MG TABLET PO PRN (23:45)
[2018-07-30] MEDS ORDERED: LORAZEPAM 2MG/ML CPJ IV PRN (23:56)
[2018-07-31] VITALS: BP 195/84
[2018-07-31] MEDS ORDERED: DEXTROSE 50% WATER 50ML SYRINGE IV PRN (00:15)
[2018-07-31 01:07] LABS: CREATINE KINASE MB FRACTION 4.1 ng/mL (0.5-3.6)
[2018-07-31 04:00] VITALS: BP 149/76
[2018-07-31] MEDS: HYDRALAZINE HCL 100MG TABLET PO SCH ×3 (06:22→21:46)
[2018-07-31] MEDS: METOCLOPRAMIDE HCL 10MG/2ML VIAL IV SCH ×3 (06:22→17:46)
[2018-07-31 07:24] LABS: BASOPHILS % 0.4 % (0.0-2.0); EOSINOPHILS % 0.2 % (0.0-5.0); HEMOGLOBIN. 10.7 g/dL (14.0-18.0); LYMPHOCYTES % 23.5 % (20.0-50.0); MEAN CORPUSCULAR VOLUME 98.4 fL (80.0-94.0); MEAN PLATELET VOLUME 7.6 fl (7.4-10.4); MONOCYTES % 8.9 % (2.0-8.0); PLATELET 152 x1000/uL (130-400); RED BLOOD CELL COUNT 3.25 mill/uL (4.7-6.1); RED CELL DISTRIBUTION WIDTH 19.7 % (11.6-14.6)
[2018-07-31 07:48] LABS: CHLORIDE 108 mEq/L (98-107)
[2018-07-31 08:00] VITALS: BP 209/98
[2018-07-31 08:07] LABS: CREATINE KINASE MB FRACTION 4.2 ng/mL (0.5-3.6)
[2018-07-31] MEDS: INSULIN LISPRO 100 UNITS/ML SUBCUT SCH ×4 (08:10→21:00)
[2018-07-31] MEDS: BLOOD SUGAR DIAGNOSTIC STRIP TEST SCH ×4 (08:13→21:30)
[2018-07-31] MEDS ORDERED: DOCUSATE SODIUM 250MG CAPSULE PO SCH (09:00)
[2018-07-31] MEDS: SEVELAMER CARBONATE 800 MG TABLET PO SCH ×3 (10:00→17:46)
[2018-07-31] MEDS: LEVETIRACETAM 500MG TABLET PO SCH ×2 (10:01→21:46)
[2018-07-31] MEDS: NIFEDIPINE XL 90MG TAB PO SCH (10:01)
[2018-07-31] MEDS: NEBIVOLOL HCL 5 MG TABLET PO SCH (10:01)
[2018-07-31] MEDS: LACTOBACILLUS GG CAPSULE PO SCH (10:01)
[2018-07-31] MEDS: CLONIDINE 0.1MG TABLET PO PRN (10:01)
[2018-07-31] MEDS: GALANTAMINE HBR 8MG ER CAPSULE 24HR PO SCH (10:01)
[2018-07-31] MEDS: ENOXAPARIN 30MG/0.3ML SYR SUBCUT SCH (10:02)
[2018-07-31] MEDS: MEMANTINE HCL 5MG TABLET PO SCH (10:02)
[2018-07-31] MEDS: CITALOPRAM HYDROBROMIDE 10MG TABLET PO SCH (10:02)
[2018-07-31] MEDS: FAMOTIDINE 20MG TABLET PO SCH (10:02)
[2018-07-31 12:00] VITALS: BP 151/76
[2018-07-31 16:00] VITALS: BP 125/61
[2018-07-31 20:00] VITALS: BP 131/70
[2018-07-31] MEDS: QUETIAPINE FUMARATE 25MG TABLET PO SCH (21:46)
[2018-08-01] VITALS: BP 117/60
[2018-08-01] MEDS: METOCLOPRAMIDE HCL 10MG/2ML VIAL IV SCH ×2 (00:10→05:31)
[2018-08-01 04:00] VITALS: BP 163/85
[2018-08-01] MEDS: HYDRALAZINE HCL 100MG TABLET PO SCH ×3 (05:31→22:00)
[2018-08-01] MEDS: BLOOD SUGAR DIAGNOSTIC STRIP TEST SCH ×4 (05:48→22:09)
[2018-08-01 08:00] VITALS: BP 147/79
[2018-08-01] MEDS: INSULIN LISPRO 100 UNITS/ML SUBCUT SCH ×4 (08:10→21:00)
[2018-08-01] MEDS: GALANTAMINE HBR 8MG ER CAPSULE 24HR PO SCH (10:12)
[2018-08-01] MEDS: ENOXAPARIN 30MG/0.3ML SYR SUBCUT SCH (10:12)
[2018-08-01] MEDS: MEMANTINE HCL 5MG TABLET PO SCH (10:12)
[2018-08-01] MEDS: SEVELAMER CARBONATE 800 MG TABLET PO SCH ×3 (10:13→18:32)
[2018-08-01] MEDS: LEVETIRACETAM 500MG TABLET PO SCH ×2 (10:13→22:09)
[2018-08-01] MEDS: FAMOTIDINE 20MG TABLET PO SCH (10:13)
[2018-08-01] MEDS: NEBIVOLOL HCL 5 MG TABLET PO SCH (10:13)
[2018-08-01] MEDS: NIFEDIPINE XL 90MG TAB PO SCH (10:14)
[2018-08-01] MEDS: CITALOPRAM HYDROBROMIDE 10MG TABLET PO SCH (10:14)
[2018-08-01] MEDS: LACTOBACILLUS GG CAPSULE PO SCH (10:14)
[2018-08-01] MEDS: NYSTATIN 100,000 UNITS/GM CREAM 15GM TOP SCH ×2 (11:38→23:09)
[2018-08-01 12:00] VITALS: BP 126/68
[2018-08-01 12:25] LABS: CLARITY URINE CLOUDY (CLEAR); COLOR URINE YELLOW (YELLOW); KETONES URINE NEGATIVE (NEGATIVE); LEUKOCYTE ESTERASE URINE NEGATIVE (NEGATIVE); NITRITE URINE NEGATIVE (NEGATIVE); OCCULT BLOOD URINE NEGATIVE (NEGATIVE); PH URINE 7.5 (4.5-8.0); PROTEIN URINE 3+ (NEGATIVE); SPECIFIC GRAVITY URINE 1.012 (1.005-1.030); UROBILINOGEN URINE 0.2 E.U./dL (0.2-1.0)
[2018-08-01 13:03] LABS: *AMPHETAMINES SCREEN URINE NEGATIVE (NEGATIVE); *BARBITURATES SCREEN URINE NEGATIVE (NEGATIVE)
[2018-08-01 13:05] LABS: *BENZODIAZEPINES SCREEN URINE NEGATIVE (NEGATIVE)
[2018-08-01 13:06] LABS: *COCAINE SCREEN URINE NEGATIVE (NEGATIVE)
[2018-08-01 13:07] LABS: METHADONE URINE SCREEN NEGATIVE (NEGATIVE)
[2018-08-01 13:09] LABS: OPIATES URINE SCREEN NEGATIVE (NEGATIVE)
[2018-08-01 13:10] LABS: PHENCYCLIDINE URINE SCREEN NEGATIVE (NEGATIVE)
[2018-08-01 13:18] LABS: CANNABINOID URINE SCREEN PRESUMTIVE POSITIVE (NEGATIVE)
[2018-08-01] MEDS: METOCLOPRAMIDE HCL 5MG TABLET PO SCH ×3 (13:57→22:09)
[2018-08-01 16:00] VITALS: BP 129/66
[2018-08-01 20:00] VITALS: BP 108/57
[2018-08-01] MEDS: QUETIAPINE FUMARATE 25MG TABLET PO SCH (22:09)
[2018-08-02] VITALS (7 sets, daily range): BP systolic 102–157; BP diastolic 60–79
[2018-08-02] MEDS: HYDRALAZINE HCL 100MG TABLET PO SCH ×3 (06:00→20:35)
[2018-08-02 06:49] LABS: BASOPHILS % 0.7 % (0.0-2.0); EOSINOPHILS % 1.1 % (0.0-5.0); HEMATOCRIT. 39.2 % (42.0-52.0); HEMOGLOBIN. 13.3 g/dL (14.0-18.0); LYMPHOCYTES % 32.3 % (20.0-50.0); MEAN CORPUSCULAR HEMOGLOBIN 33.2 pg (28.0-32.0); MEAN CORPUSCULAR VOLUME 97.8 fL (80.0-94.0); MEAN PLATELET VOLUME 8.1 fl (7.4-10.4); MONOCYTES % 9.6 % (2.0-8.0); NEUTROPHILS % 56.3 % (40.0-76.0); PLATELET 143 x1000/uL (130-400); RED BLOOD CELL COUNT 4.01 mill/uL (4.7-6.1); RED CELL DISTRIBUTION WIDTH 19.1 % (11.6-14.6)
[2018-08-02] MEDS: BLOOD SUGAR DIAGNOSTIC STRIP TEST SCH ×3 (07:49→17:14)
[2018-08-02] MEDS: INSULIN LISPRO 100 UNITS/ML SUBCUT SCH ×3 (08:10→18:10)
[2018-08-02] MEDS: LEVETIRACETAM 500MG TABLET PO SCH ×2 (08:26→20:36)
[2018-08-02] MEDS: GALANTAMINE HBR 8MG ER CAPSULE 24HR PO SCH (08:27)
[2018-08-02] MEDS: CITALOPRAM HYDROBROMIDE 10MG TABLET PO SCH (08:27)
[2018-08-02] MEDS: ENOXAPARIN 30MG/0.3ML SYR SUBCUT SCH (08:27)
[2018-08-02] MEDS: FAMOTIDINE 20MG TABLET PO SCH (08:27)
[2018-08-02] MEDS: METOCLOPRAMIDE HCL 5MG TABLET PO SCH ×4 (08:27→20:36)
[2018-08-02] MEDS: MEMANTINE HCL 5MG TABLET PO SCH (08:27)
[2018-08-02] MEDS: LACTOBACILLUS GG CAPSULE PO SCH (08:27)
[2018-08-02] MEDS: SEVELAMER CARBONATE 800 MG TABLET PO SCH ×3 (08:35→18:10)
[2018-08-02] MEDS: NYSTATIN 100,000 UNITS/GM CREAM 15GM TOP SCH ×2 (08:36→20:36)
[2018-08-02] MEDS: NIFEDIPINE XL 90MG TAB PO SCH (09:00)
[2018-08-02] MEDS: NEBIVOLOL HCL 5 MG TABLET PO SCH (09:00)
[2018-08-02] MEDS: QUETIAPINE FUMARATE 25MG TABLET PO SCH (20:36)
[2018-08-06 15:14] LABS: ATYPICAL pANCA <1:20 titer (Neg:<1:20)
[2018-08-07 13:10] LABS: SACCHAROMYCES CEREVISIAE IGG <20.0 Units (0.0-24.9); SACCHAROMYCES CEREVISIAE IGM <20.0 Units (0.0-24.9)
== END 2018-08-02 20:51 | disposition home health service (06) | DRG 73 ==
LOC: ER 13:19 → EDBEDREQ 17:31 → 7WST 19:20 → EDBEDREQTM 19:36 → EDBEDREQ 19:36 → ENRESERV 20:46
PROVIDERS: ADMIT Internal Medicine Geriatric Medicine; ATTEND Internal Medicine Geriatric Medicine
PROC: 5A1D70Z Performance of Urinary Filtration, Intermittent, Less than 6 Hours Per Day (ICD-10-PCS; principal; 2018-07-31)
PROC: 5A1D70Z Performance of Urinary Filtration, Intermittent, Less than 6 Hours Per Day (ICD-10-PCS; 2018-08-02)
DX: E11.43 Type 2 diabetes mellitus with diabetic autonomic (poly)neuropathy (principal); N18.6 End stage renal disease; I13.11 Hypertensive heart and chronic kidney disease without heart failure, with stage 5 chronic kidney disease, or end stage renal disease; K52.9 Noninfective gastroenteritis and colitis, unspecified; E87.6 Hypokalemia; K31.84 Gastroparesis; E11.51 Type 2 diabetes mellitus with diabetic peripheral angiopathy without gangrene; E11.22 Type 2 diabetes mellitus with diabetic chronic kidney disease; E87.70 Fluid overload, unspecified; F03.90 Unspecified dementia, unspecified severity, without behavioral disturbance, psychotic disturbance, mood disturbance, and anxiety; D63.8 Anemia in other chronic diseases classified elsewhere; G40.909 Epilepsy, unspecified, not intractable, without status epilepticus; M48.00 Spinal stenosis, site unspecified; F32.9 Major depressive disorder, single episode, unspecified; N48.1 Balanitis; K57.90 Diverticulosis of intestine, part unspecified, without perforation or abscess without bleeding; M81.0 Age-related osteoporosis without current pathological fracture; Z91.81 History of falling; Z99.2 Dependence on renal dialysis; Z90.49 Acquired absence of other specified parts of digestive tract; Z86.73 Personal history of transient ischemic attack (TIA), and cerebral infarction without residual deficits; Z79.899 Other long term (current) drug therapy
CPT/HCPCS: 36415; 71045; 74176; 80048; 80305; 82378; 82553; 82962; 83036; 83735; 84100; 84484; 86256; 86671; 93005; 96374; 96375; 97116; 97162; 97530; 99285; J1170; J1650; J1953; J2060; J2405; J2765; J8597

== ENCOUNTER → 2019-02-05 | Day surgery (SDC) | payer MEDICARE, MEDICAID ==
[~2019-02-05] VITALS: Ht 180.3 cm; Wt 66.0 kg
[~2019-02-05] MED LIST changes: +ALFU10TA9 PO; +BACITRACIN 15GM TUBE TOP ONE; +BACITRACIN 50,000 UNITS/VIAL ONE; +BICA50TA7 PO; +BUPIVACAINE HCL/PF 0.5% (5MG/ML) 10ML ONE; +FENTANYL CITRATE/PF 50MCG/ML 2ML VIAL ONE; +GLIM2TAB2 PO; +HEPARIN SODIUM 1,000 UNIT/1ML VIAL IV ONE; +LIDOCAINE HCL 1% 20ML VIAL (Pyxis) INJ ONE; +NIFE90TA34 PO; +NORMAL SALINE 0.9% 10 ML SYR ONE; +PROPOFOL 200MG/20ML VIAL IV ONE; +SODIUM CHLORIDE 0.9% 500 ML IV NR; +THROMBIN (BOVINE) 5000 UNITS/VIAL TOP ONE
[2019-02-05 11:40] LABS: BASOPHILS % 0.7 % (0.0-2.0); HEMATOCRIT. 28.9 % (42.0-52.0); LYMPHOCYTES % 23.6 % (20.0-50.0); MEAN CORPUSCULAR HEMOGLOBIN 32.7 pg (28.0-32.0); MEAN CORPUSCULAR VOLUME 94.3 fL (80.0-94.0); MEAN PLATELET VOLUME 7.3 fl (7.4-10.4); MONOCYTES % 6.9 % (2.0-8.0); NEUTROPHILS % 66.8 % (40.0-76.0); PLATELET 147 x1000/uL (130-400); RED BLOOD CELL COUNT 3.06 mill/uL (4.7-6.1); RED CELL DISTRIBUTION WIDTH 18.2 % (11.6-14.6)
[2019-02-05 11:48] LABS: INR 1.2; PARTIAL THROMBOPLASTIN TIME 27.7 sec (23.4-31.0); PROTHROMBIN TIME 12.7 sec (9.6-11.0)
== END | disposition home or self-care (01) ==
LOC: OR 10:27
PROVIDERS: ATTEND Surgery Vascular Surgery
DX: I13.11 Hypertensive heart and chronic kidney disease without heart failure, with stage 5 chronic kidney disease, or end stage renal disease (principal); E11.22 Type 2 diabetes mellitus with diabetic chronic kidney disease; N18.6 End stage renal disease; I25.10 Atherosclerotic heart disease of native coronary artery without angina pectoris; J84.9 Interstitial pulmonary disease, unspecified; R94.31 Abnormal electrocardiogram [ECG] [EKG]; Z99.2 Dependence on renal dialysis; Z79.84 Long term (current) use of oral hypoglycemic drugs; Z79.899 Other long term (current) drug therapy; Z98.890 Other specified postprocedural states
CPT/HCPCS: 36415; 36821; 71045; 80048; 82962; 85025; 85610; 85730; 93005; J1644; J2704; J3010; J3490; J7040

== ENCOUNTER 2019-02-20 17:45 | Inpatient (IN) | payer MEDICARE, MEDICAID ==
[~2019-02-20] VITALS: Ht 172.7 cm; Wt 62.6 kg
[~2019-02-20 17:45] MED LIST changes: -BACITRACIN 15GM TUBE TOP ONE; -BACITRACIN 50,000 UNITS/VIAL ONE; -BUPIVACAINE HCL/PF 0.5% (5MG/ML) 10ML ONE; -FENTANYL CITRATE/PF 50MCG/ML 2ML VIAL ONE; -HEPARIN SODIUM 1,000 UNIT/1ML VIAL IV ONE; -LIDOCAINE HCL 1% 20ML VIAL (Pyxis) INJ ONE; -NIFE30TA94 PO; -NORMAL SALINE 0.9% 10 ML SYR ONE; -PROPOFOL 200MG/20ML VIAL IV ONE; -SODIUM CHLORIDE 0.9% 500 ML IV NR; -THROMBIN (BOVINE) 5000 UNITS/VIAL TOP ONE
[2019-02-20 19:30] VITALS: BP 168/69
[2019-02-20 20:00] VITALS: BP 168/69
[2019-02-20] MEDS ORDERED: ONDANSETRON HCL 4MG/2ML INJ IV PRN ×2 (20:30→21:30)
[2019-02-20] MEDS ORDERED: GUAIFENESIN 200MG/10ML SUGAR FREE UDC PO PRN (21:00)
[2019-02-20] MEDS ORDERED: CLONIDINE 0.1MG TABLET PO PRN (21:00)
[2019-02-20] MEDS ORDERED: MAGNESIUM/ALUMINUM HYDROXIDE/SIMETHICONE 30ML UDC PO PRN (21:00)
[2019-02-20] MEDS ORDERED: DEXTROSE 50% WATER 50ML SYRINGE IV PRN (21:23)
[2019-02-20] MEDS: BLOOD SUGAR DIAGNOSTIC STRIP TEST SCH (21:30)
[2019-02-20] MEDS: INSULIN LISPRO 100 UNITS/ML SUBCUT SCH (21:30)
[2019-02-20] MEDS ORDERED: VANCOMYCIN 750 MG PREMIX 150 ML IV NR (21:45)
[2019-02-20] MEDS: HYDRALAZINE HCL 100MG TABLET PO SCH (22:01)
[2019-02-20] MEDS: PIPERACILLIN/TAZOBACTAM 2.25 G in DEXTROSE 5% WATER 50 ML IV SCH (23:37)
[2019-02-20] MEDS: EPOETIN ALFA 10000UNITS/ML VIAL SUBCUT SCH (23:42)
[2019-02-21] MEDS: IPRATROPIUM/ALBUTEROL 0.5-3(2.5)MG/3ML NEB HHN SCH ×4 (00:50→11:10)
[2019-02-21] MEDS: BLOOD SUGAR DIAGNOSTIC STRIP TEST SCH ×4 (06:30→20:50)
[2019-02-21] MEDS: METOCLOPRAMIDE HCL 5MG TABLET PO SCH (07:09)
[2019-02-21] MEDS: HYDRALAZINE HCL 100MG TABLET PO SCH ×3 (07:10→21:07)
[2019-02-21 08:03] VITALS: BP 117/86
[2019-02-21 08:07] LABS: BASOPHILS % 0.7 % (0.0-2.0); EOSINOPHILS % 3.6 % (0.0-5.0); HEMATOCRIT. 25.6 % (42.0-52.0); HEMOGLOBIN. 8.6 g/dL (14.0-18.0); LYMPHOCYTES % 17.8 % (20.0-50.0); MEAN CORPUSCULAR HEMOGLOBIN 32.1 pg (28.0-32.0); MEAN PLATELET VOLUME 8.1 fl (7.4-10.4); MONOCYTES % 8.6 % (2.0-8.0); NEUTROPHILS % 69.3 % (40.0-76.0); PLATELET 201 x1000/uL (130-400); RED BLOOD CELL COUNT 2.69 mill/uL (4.7-6.1); RED CELL DISTRIBUTION WIDTH 17.8 % (11.6-14.6)
[2019-02-21] MEDS: INSULIN LISPRO 100 UNITS/ML SUBCUT SCH ×4 (09:00→20:53)
[2019-02-21] MEDS: ENOXAPARIN 30MG/0.3ML SYR SUBCUT SCH (09:12)
[2019-02-21] MEDS: SEVELAMER CARBONATE 800 MG TABLET PO SCH ×3 (09:13→16:49)
[2019-02-21] MEDS: NIFEDIPINE XL 90MG TAB PO SCH (09:13)
[2019-02-21] MEDS: LEVETIRACETAM 500MG TABLET PO SCH ×2 (09:13→16:49)
[2019-02-21] MEDS: CITALOPRAM HYDROBROMIDE 10MG TABLET PO SCH (09:13)
[2019-02-21] MEDS: TAMSULOSIN HCL 0.4MG SR CAPSULE PO SCH (09:14)
[2019-02-21] MEDS: QUETIAPINE FUMARATE 25MG TABLET PO SCH (09:14)
[2019-02-21] MEDS: MEMANTINE HCL 5MG TABLET PO SCH (09:14)
[2019-02-21] MEDS: BICALUTAMIDE 50 MG TABLET PO SCH (09:16)
[2019-02-21] MEDS: LOSARTAN POTASSIUM 100 MG TABLET PO SCH (09:18)
[2019-02-21 20:00] VITALS: BP 112/57
[2019-02-21] MEDS: PIPERACILLIN/TAZOBACTAM 2.25 G in DEXTROSE 5% WATER 50 ML IV SCH (20:34)
[2019-02-21] MEDS: ALBUTEROL (0.083%) 2.5MG/3ML NEB HHN SCH (22:04)
[2019-02-22] MEDS: ALBUTEROL (0.083%) 2.5MG/3ML NEB HHN SCH ×4 (03:16→22:08)
[2019-02-22] MEDS: HYDRALAZINE HCL 100MG TABLET PO SCH ×3 (05:58→23:17)
[2019-02-22] MEDS: METOCLOPRAMIDE HCL 5MG TABLET PO SCH (06:00)
[2019-02-22] MEDS: BLOOD SUGAR DIAGNOSTIC STRIP TEST SCH ×4 (06:04→21:00)
[2019-02-22] MEDS: INSULIN LISPRO 100 UNITS/ML SUBCUT SCH ×4 (06:05→21:00)
[2019-02-22 08:21] VITALS: BP 109/59
[2019-02-22] MEDS: MEMANTINE HCL 5MG TABLET PO SCH (08:48)
[2019-02-22] MEDS: LEVETIRACETAM 500MG TABLET PO SCH ×2 (08:48→16:22)
[2019-02-22] MEDS: SEVELAMER CARBONATE 800 MG TABLET PO SCH ×3 (08:48→16:22)
[2019-02-22] MEDS: CITALOPRAM HYDROBROMIDE 10MG TABLET PO SCH (08:48)
[2019-02-22] MEDS: TAMSULOSIN HCL 0.4MG SR CAPSULE PO SCH (08:48)
[2019-02-22] MEDS: QUETIAPINE FUMARATE 25MG TABLET PO SCH (08:48)
[2019-02-22] MEDS: ENOXAPARIN 30MG/0.3ML SYR SUBCUT SCH (08:49)
[2019-02-22] MEDS: LOSARTAN POTASSIUM 100 MG TABLET PO SCH (08:50)
[2019-02-22] MEDS: NIFEDIPINE XL 90MG TAB PO SCH (08:50)
[2019-02-22] MEDS: PIPERACILLIN/TAZOBACTAM 2.25 G in DEXTROSE 5% WATER 50 ML IV SCH ×2 (09:27→23:18)
[2019-02-22] MEDS: BICALUTAMIDE 50 MG TABLET PO SCH (12:35)
[2019-02-22 20:00] VITALS: BP 174/69
[2019-02-22] MEDS: EPOETIN ALFA 10000UNITS/ML VIAL SUBCUT SCH (23:18)
[2019-02-23] MEDS: LORAZEPAM 2MG/ML CPJ IV PRN ×2 (01:28→21:32)
[2019-02-23] MEDS: ALBUTEROL (0.083%) 2.5MG/3ML NEB HHN SCH ×4 (01:30→20:16)
[2019-02-23] MEDS: METOCLOPRAMIDE HCL 5MG TABLET PO SCH (06:24)
[2019-02-23] MEDS: BLOOD SUGAR DIAGNOSTIC STRIP TEST SCH ×4 (06:24→21:32)
[2019-02-23] MEDS: HYDRALAZINE HCL 100MG TABLET PO SCH ×3 (06:24→21:31)
[2019-02-23] MEDS: INSULIN LISPRO 100 UNITS/ML SUBCUT SCH ×4 (06:24→21:00)
[2019-02-23 06:39] LABS: BASOPHILS % 0.8 % (0.0-2.0); EOSINOPHILS % 3.2 % (0.0-5.0); HEMATOCRIT. 27.1 % (42.0-52.0); HEMOGLOBIN. 9.2 g/dL (14.0-18.0); LYMPHOCYTES % 21.4 % (20.0-50.0); MEAN CORPUSCULAR HEMOGLOBIN 32.4 pg (28.0-32.0); MEAN CORPUSCULAR VOLUME 95.2 fL (80.0-94.0); MEAN PLATELET VOLUME 7.9 fl (7.4-10.4); MONOCYTES % 9.4 % (2.0-8.0); NEUTROPHILS % 65.2 % (40.0-76.0); PLATELET 267 x1000/uL (130-400); RED BLOOD CELL COUNT 2.84 mill/uL (4.7-6.1); RED CELL DISTRIBUTION WIDTH 17.6 % (11.6-14.6)
[2019-02-23 08:06] VITALS: BP 124/82
[2019-02-23] MEDS: BICALUTAMIDE 50 MG TABLET PO SCH (08:11)
[2019-02-23] MEDS: ENOXAPARIN 30MG/0.3ML SYR SUBCUT SCH (08:11)
[2019-02-23] MEDS: CITALOPRAM HYDROBROMIDE 10MG TABLET PO SCH (08:11)
[2019-02-23] MEDS: SEVELAMER CARBONATE 800 MG TABLET PO SCH ×3 (08:12→17:37)
[2019-02-23] MEDS: MEMANTINE HCL 5MG TABLET PO SCH (08:12)
[2019-02-23] MEDS: TAMSULOSIN HCL 0.4MG SR CAPSULE PO SCH (08:12)
[2019-02-23] MEDS: LOSARTAN POTASSIUM 100 MG TABLET PO SCH (08:12)
[2019-02-23] MEDS: NIFEDIPINE XL 90MG TAB PO SCH (08:12)
[2019-02-23] MEDS: QUETIAPINE FUMARATE 25MG TABLET PO SCH (08:13)
[2019-02-23] MEDS: LEVETIRACETAM 500MG TABLET PO SCH ×2 (08:13→17:37)
[2019-02-23] MEDS: ACETAMINOPHEN 325MG TABLET PO PRN (08:13)
[2019-02-23] MEDS: PIPERACILLIN/TAZOBACTAM 2.25 G in DEXTROSE 5% WATER 50 ML IV SCH ×2 (08:56→21:31)
[2019-02-23 13:10] VITALS: BP 142/98
[2019-02-23 20:00] VITALS: BP 166/117
[2019-02-23] MEDS: EPOETIN ALFA 10000UNITS/ML VIAL SUBCUT SCH (21:00)
[2019-02-24] MEDS: ALBUTEROL (0.083%) 2.5MG/3ML NEB HHN SCH ×4 (01:19→21:51)
[2019-02-24] MEDS: METOCLOPRAMIDE HCL 5MG TABLET PO SCH (05:49)
[2019-02-24] MEDS: INSULIN LISPRO 100 UNITS/ML SUBCUT SCH ×4 (05:50→21:00)
[2019-02-24] MEDS: HYDRALAZINE HCL 100MG TABLET PO SCH ×3 (05:50→21:39)
[2019-02-24] MEDS: BLOOD SUGAR DIAGNOSTIC STRIP TEST SCH ×4 (05:50→21:37)
[2019-02-24 07:53] VITALS: BP 101/69
[2019-02-24] MEDS: LEVETIRACETAM 500MG TABLET PO SCH ×2 (08:37→16:36)
[2019-02-24] MEDS: SEVELAMER CARBONATE 800 MG TABLET PO SCH ×3 (08:37→16:36)
[2019-02-24] MEDS: CITALOPRAM HYDROBROMIDE 10MG TABLET PO SCH (08:37)
[2019-02-24] MEDS: MEMANTINE HCL 5MG TABLET PO SCH (08:37)
[2019-02-24] MEDS: QUETIAPINE FUMARATE 25MG TABLET PO SCH (08:37)
[2019-02-24] MEDS: PIPERACILLIN/TAZOBACTAM 2.25 G in DEXTROSE 5% WATER 50 ML IV SCH (08:38)
[2019-02-24] MEDS: ENOXAPARIN 30MG/0.3ML SYR SUBCUT SCH (08:38)
[2019-02-24] MEDS: TAMSULOSIN HCL 0.4MG SR CAPSULE PO SCH (08:38)
[2019-02-24] MEDS: BICALUTAMIDE 50 MG TABLET PO SCH (08:40)
[2019-02-24] MEDS: LOSARTAN POTASSIUM 100 MG TABLET PO SCH (08:50)
[2019-02-24] MEDS: NIFEDIPINE XL 90MG TAB PO SCH (09:00)
[2019-02-24 20:00] VITALS: BP 107/89
[2019-02-25] MEDS: ALBUTEROL (0.083%) 2.5MG/3ML NEB HHN SCH ×4 (03:01→21:38)
[2019-02-25] MEDS: HYDRALAZINE HCL 100MG TABLET PO SCH ×3 (06:25→21:30)
[2019-02-25] MEDS: BLOOD SUGAR DIAGNOSTIC STRIP TEST SCH ×4 (06:25→21:00)
[2019-02-25] MEDS: METOCLOPRAMIDE HCL 5MG TABLET PO SCH (06:26)
[2019-02-25 07:04] LABS: BASOPHILS % 1.2 % (0.0-2.0); HEMATOCRIT. 26.7 % (42.0-52.0); LYMPHOCYTES % 29.6 % (20.0-50.0); MEAN CORPUSCULAR HEMOGLOBIN 32.3 pg (28.0-32.0); MEAN CORPUSCULAR VOLUME 96.1 fL (80.0-94.0); MEAN PLATELET VOLUME 7.6 fl (7.4-10.4); MONOCYTES % 9.8 % (2.0-8.0); NEUTROPHILS % 55.4 % (40.0-76.0); PLATELET 299 x1000/uL (130-400); RED BLOOD CELL COUNT 2.78 mill/uL (4.7-6.1); RED CELL DISTRIBUTION WIDTH 18.5 % (11.6-14.6)
[2019-02-25] MEDS: ACETAMINOPHEN 325MG TABLET PO PRN (07:28)
[2019-02-25 08:00] VITALS: BP 118/77
[2019-02-25] MEDS: QUETIAPINE FUMARATE 25MG TABLET PO SCH (08:35)
[2019-02-25] MEDS: CITALOPRAM HYDROBROMIDE 10MG TABLET PO SCH (08:35)
[2019-02-25] MEDS: SEVELAMER CARBONATE 800 MG TABLET PO SCH ×3 (08:35→17:12)
[2019-02-25] MEDS: LOSARTAN POTASSIUM 100 MG TABLET PO SCH (08:36)
[2019-02-25] MEDS: LEVETIRACETAM 500MG TABLET PO SCH ×2 (08:36→17:12)
[2019-02-25] MEDS: TAMSULOSIN HCL 0.4MG SR CAPSULE PO SCH (08:36)
[2019-02-25] MEDS: ENOXAPARIN 30MG/0.3ML SYR SUBCUT SCH (08:37)
[2019-02-25] MEDS: INSULIN LISPRO 100 UNITS/ML SUBCUT SCH ×4 (08:37→21:00)
[2019-02-25] MEDS: NIFEDIPINE XL 90MG TAB PO SCH (08:37)
[2019-02-25] MEDS: BICALUTAMIDE 50 MG TABLET PO SCH (08:37)
[2019-02-25] MEDS: MEMANTINE HCL 5MG TABLET PO SCH (08:37)
[2019-02-25] MEDS ORDERED: EPOETIN ALFA 10000UNITS/ML VIAL SUBCUT NR (10:30)
[2019-02-25 10:39] LABS: TOTAL IRON BINDING CAPACITY 136 ug/dL (250-450)
[2019-02-25 20:00] VITALS: BP 113/48
[2019-02-25] MEDS: EPOETIN ALFA 10000UNITS/ML VIAL SUBCUT SCH (21:30)
[2019-02-26] MEDS: ALBUTEROL (0.083%) 2.5MG/3ML NEB HHN SCH ×4 (01:30→20:51)
[2019-02-26 08:09] VITALS: BP 161/62
[2019-02-26] MEDS: LEVETIRACETAM 500MG TABLET PO SCH ×2 (08:39→16:21)
[2019-02-26] MEDS: BICALUTAMIDE 50 MG TABLET PO SCH (08:39)
[2019-02-26] MEDS: LOSARTAN POTASSIUM 100 MG TABLET PO SCH (08:40)
[2019-02-26] MEDS: TAMSULOSIN HCL 0.4MG SR CAPSULE PO SCH (08:41)
[2019-02-26] MEDS: SEVELAMER CARBONATE 800 MG TABLET PO SCH ×3 (08:41→16:21)
[2019-02-26] MEDS: NIFEDIPINE XL 90MG TAB PO SCH (08:41)
[2019-02-26] MEDS: CITALOPRAM HYDROBROMIDE 10MG TABLET PO SCH (08:41)
[2019-02-26] MEDS: QUETIAPINE FUMARATE 25MG TABLET PO SCH (08:42)
[2019-02-26] MEDS: MEMANTINE HCL 5MG TABLET PO SCH (08:42)
[2019-02-26] MEDS: ENOXAPARIN 30MG/0.3ML SYR SUBCUT SCH (08:43)
[2019-02-26] MEDS: INSULIN LISPRO 100 UNITS/ML SUBCUT SCH ×4 (08:44→21:00)
[2019-02-26] MEDS: BLOOD SUGAR DIAGNOSTIC STRIP TEST SCH ×3 (12:10→21:00)
[2019-02-26] MEDS: HYDRALAZINE HCL 100MG TABLET PO SCH ×2 (15:44→21:09)
[2019-02-26 20:00] VITALS: BP 105/76
[2019-02-27] MEDS: ALBUTEROL (0.083%) 2.5MG/3ML NEB HHN SCH ×4 (02:19→20:00)
[2019-02-27] MEDS: BLOOD SUGAR DIAGNOSTIC STRIP TEST SCH ×4 (06:30→21:58)
[2019-02-27] MEDS: METOCLOPRAMIDE HCL 5MG TABLET PO SCH ×2 (06:38→06:40)
[2019-02-27] MEDS: HYDRALAZINE HCL 100MG TABLET PO SCH ×3 (06:39→21:58)
[2019-02-27 08:23] VITALS: BP 148/67
[2019-02-27] MEDS: INSULIN LISPRO 100 UNITS/ML SUBCUT SCH ×4 (09:00→21:00)
[2019-02-27] MEDS: NIFEDIPINE XL 90MG TAB PO SCH (09:00)
[2019-02-27] MEDS: LOSARTAN POTASSIUM 100 MG TABLET PO SCH (09:00)
[2019-02-27] MEDS: BICALUTAMIDE 50 MG TABLET PO SCH (09:01)
[2019-02-27] MEDS: SEVELAMER CARBONATE 800 MG TABLET PO SCH ×3 (09:02→17:00)
[2019-02-27] MEDS: CITALOPRAM HYDROBROMIDE 10MG TABLET PO SCH (09:02)
[2019-02-27] MEDS: LEVETIRACETAM 500MG TABLET PO SCH ×2 (09:02→17:00)
[2019-02-27] MEDS: QUETIAPINE FUMARATE 25MG TABLET PO SCH (09:02)
[2019-02-27] MEDS: TAMSULOSIN HCL 0.4MG SR CAPSULE PO SCH (09:02)
[2019-02-27] MEDS: MEMANTINE HCL 5MG TABLET PO SCH (09:02)
[2019-02-27] MEDS: ENOXAPARIN 30MG/0.3ML SYR SUBCUT SCH (09:04)
[2019-02-27 11:57] LABS: BASOPHILS % 1.2 % (0.0-2.0); EOSINOPHILS % 2.6 % (0.0-5.0); HEMATOCRIT. 27.5 % (42.0-52.0); HEMOGLOBIN. 9.3 g/dL (14.0-18.0); LYMPHOCYTES % 23.4 % (20.0-50.0); MEAN CORPUSCULAR HEMOGLOBIN 32.6 pg (28.0-32.0); MEAN CORPUSCULAR VOLUME 96.4 fL (80.0-94.0); MEAN PLATELET VOLUME 7.4 fl (7.4-10.4); MONOCYTES % 7.9 % (2.0-8.0); NEUTROPHILS % 64.9 % (40.0-76.0); PLATELET 307 x1000/uL (130-400); RED BLOOD CELL COUNT 2.85 mill/uL (4.7-6.1); RED CELL DISTRIBUTION WIDTH 18.6 % (11.6-14.6)
[2019-02-27 13:15] VITALS: BP 148/68
[2019-02-27 20:00] VITALS: BP 168/80
[2019-02-27] MEDS: EPOETIN ALFA 10000UNITS/ML VIAL SUBCUT SCH (21:56)
[2019-02-28] MEDS: ALBUTEROL (0.083%) 2.5MG/3ML NEB HHN SCH ×4 (02:00→20:55)
[2019-02-28] MEDS: BLOOD SUGAR DIAGNOSTIC STRIP TEST SCH ×4 (06:39→20:11)
[2019-02-28] MEDS: HYDRALAZINE HCL 100MG TABLET PO SCH ×3 (06:40→21:32)
[2019-02-28] MEDS: METOCLOPRAMIDE HCL 5MG TABLET PO SCH (06:41)
[2019-02-28 08:00] VITALS: BP 176/80
[2019-02-28] MEDS: INSULIN LISPRO 100 UNITS/ML SUBCUT SCH ×4 (09:00→20:11)
[2019-02-28] MEDS: BICALUTAMIDE 50 MG TABLET PO SCH (09:14)
[2019-02-28] MEDS: CITALOPRAM HYDROBROMIDE 10MG TABLET PO SCH (09:15)
[2019-02-28] MEDS: ENOXAPARIN 30MG/0.3ML SYR SUBCUT SCH (09:15)
[2019-02-28] MEDS: SEVELAMER CARBONATE 800 MG TABLET PO SCH ×3 (09:15→17:14)
[2019-02-28] MEDS: TAMSULOSIN HCL 0.4MG SR CAPSULE PO SCH (09:16)
[2019-02-28] MEDS: MEMANTINE HCL 5MG TABLET PO SCH (09:17)
[2019-02-28] MEDS: LOSARTAN POTASSIUM 100 MG TABLET PO SCH (09:17)
[2019-02-28] MEDS: NIFEDIPINE XL 90MG TAB PO SCH (09:17)
[2019-02-28] MEDS: LEVETIRACETAM 500MG TABLET PO SCH ×2 (09:18→17:15)
[2019-02-28] MEDS: QUETIAPINE FUMARATE 25MG TABLET PO SCH (09:18)
[2019-02-28 20:00] VITALS: BP 95/61
[2019-03-01] MEDS: ALBUTEROL (0.083%) 2.5MG/3ML NEB HHN SCH ×4 (01:01→20:25)
[2019-03-01] MEDS: HYDRALAZINE HCL 100MG TABLET PO SCH ×3 (06:00→21:24)
[2019-03-01] MEDS: METOCLOPRAMIDE HCL 5MG TABLET PO SCH (06:16)
[2019-03-01] MEDS: INSULIN LISPRO 100 UNITS/ML SUBCUT SCH ×4 (06:16→21:00)
[2019-03-01] MEDS: BLOOD SUGAR DIAGNOSTIC STRIP TEST SCH ×4 (06:16→21:19)
[2019-03-01] MEDS: SEVELAMER CARBONATE 800 MG TABLET PO SCH ×3 (08:25→17:07)
[2019-03-01] MEDS: BICALUTAMIDE 50 MG TABLET PO SCH (08:25)
[2019-03-01] MEDS: MEMANTINE HCL 5MG TABLET PO SCH (08:26)
[2019-03-01] MEDS: QUETIAPINE FUMARATE 25MG TABLET PO SCH (08:26)
[2019-03-01] MEDS: LEVETIRACETAM 500MG TABLET PO SCH ×2 (08:26→17:07)
[2019-03-01] MEDS: LOSARTAN POTASSIUM 100 MG TABLET PO SCH (08:26)
[2019-03-01] MEDS: TAMSULOSIN HCL 0.4MG SR CAPSULE PO SCH (08:26)
[2019-03-01] MEDS: CITALOPRAM HYDROBROMIDE 10MG TABLET PO SCH (08:26)
[2019-03-01] MEDS: NIFEDIPINE XL 90MG TAB PO SCH (08:26)
[2019-03-01] MEDS: ENOXAPARIN 30MG/0.3ML SYR SUBCUT SCH (08:27)
[2019-03-01 08:55] VITALS: BP 128/60
[2019-03-01 09:58] VITALS: BP 119/60
[2019-03-01 11:49] LABS: BASOPHILS % 0.8 % (0.0-2.0); EOSINOPHILS % 1.8 % (0.0-5.0); HEMATOCRIT. 28.1 % (42.0-52.0); HEMOGLOBIN. 9.3 g/dL (14.0-18.0); LYMPHOCYTES % 21.2 % (20.0-50.0); MEAN CORPUSCULAR HEMOGLOBIN 31.7 pg (28.0-32.0); MEAN CORPUSCULAR VOLUME 95.7 fL (80.0-94.0); MEAN PLATELET VOLUME 7.6 fl (7.4-10.4); MONOCYTES % 8.5 % (2.0-8.0); NEUTROPHILS % 67.7 % (40.0-76.0); PLATELET 323 x1000/uL (130-400); RED BLOOD CELL COUNT 2.94 mill/uL (4.7-6.1); RED CELL DISTRIBUTION WIDTH 18.8 % (11.6-14.6)
[2019-03-01 20:00] VITALS: BP 116/99
[2019-03-01] MEDS: EPOETIN ALFA 10000UNITS/ML VIAL SUBCUT SCH (21:24)
[2019-03-01] MEDS: NYSTATIN POWDER 15GM TOP SCH (21:24)
[2019-03-02] MEDS: METOCLOPRAMIDE HCL 5MG TABLET PO SCH (06:19)
[2019-03-02] MEDS: HYDRALAZINE HCL 100MG TABLET PO SCH ×3 (06:19→21:26)
[2019-03-02] MEDS: BLOOD SUGAR DIAGNOSTIC STRIP TEST SCH ×4 (06:34→21:26)
[2019-03-02 07:51] LABS: BASOPHILS % 1.7 % (0.0-2.0); EOSINOPHILS % 2.4 % (0.0-5.0); HEMOGLOBIN. 9.7 g/dL (14.0-18.0); LYMPHOCYTES % 24.4 % (20.0-50.0); MEAN CORPUSCULAR VOLUME 95.9 fL (80.0-94.0); MEAN PLATELET VOLUME 7.5 fl (7.4-10.4); NEUTROPHILS % 63.5 % (40.0-76.0); PLATELET 294 x1000/uL (130-400); RED BLOOD CELL COUNT 3.02 mill/uL (4.7-6.1); RED CELL DISTRIBUTION WIDTH 18.9 % (11.6-14.6)
[2019-03-02 08:00] VITALS: BP 90/78
[2019-03-02] MEDS: LOSARTAN POTASSIUM 100 MG TABLET PO SCH (09:00)
[2019-03-02] MEDS: INSULIN LISPRO 100 UNITS/ML SUBCUT SCH ×4 (09:00→21:00)
[2019-03-02] MEDS: NIFEDIPINE XL 90MG TAB PO SCH (09:00)
[2019-03-02] MEDS: ALBUTEROL (0.083%) 2.5MG/3ML NEB HHN SCH ×4 (09:01→20:57)
[2019-03-02] MEDS: SEVELAMER CARBONATE 800 MG TABLET PO SCH ×3 (09:48→16:59)
[2019-03-02] MEDS: ENOXAPARIN 30MG/0.3ML SYR SUBCUT SCH (09:48)
[2019-03-02] MEDS: LEVETIRACETAM 500MG TABLET PO SCH ×2 (09:48→16:59)
[2019-03-02] MEDS: BICALUTAMIDE 50 MG TABLET PO SCH (09:48)
[2019-03-02] MEDS: NYSTATIN POWDER 15GM TOP SCH ×2 (09:48→21:26)
[2019-03-02] MEDS: QUETIAPINE FUMARATE 25MG TABLET PO SCH (09:50)
[2019-03-02] MEDS: MEMANTINE HCL 5MG TABLET PO SCH (09:51)
[2019-03-02] MEDS: TAMSULOSIN HCL 0.4MG SR CAPSULE PO SCH (09:51)
[2019-03-02] MEDS: CITALOPRAM HYDROBROMIDE 10MG TABLET PO SCH (09:51)
[2019-03-02 20:00] VITALS: BP 131/77
[2019-03-03] MEDS: ALBUTEROL (0.083%) 2.5MG/3ML NEB HHN SCH ×4 (01:54→20:08)
[2019-03-03] MEDS: HYDRALAZINE HCL 100MG TABLET PO SCH ×3 (05:35→21:18)
[2019-03-03] MEDS: BLOOD SUGAR DIAGNOSTIC STRIP TEST SCH ×4 (05:35→20:33)
[2019-03-03] MEDS: INSULIN LISPRO 100 UNITS/ML SUBCUT SCH ×4 (05:36→20:33)
[2019-03-03] MEDS: METOCLOPRAMIDE HCL 5MG TABLET PO SCH (06:06)
[2019-03-03 08:00] VITALS: BP 192/88
[2019-03-03] MEDS: BICALUTAMIDE 50 MG TABLET PO SCH (09:35)
[2019-03-03] MEDS: ENOXAPARIN 30MG/0.3ML SYR SUBCUT SCH (09:35)
[2019-03-03] MEDS: LEVETIRACETAM 500MG TABLET PO SCH ×2 (09:36→17:47)
[2019-03-03] MEDS: SEVELAMER CARBONATE 800 MG TABLET PO SCH ×3 (09:36→17:48)
[2019-03-03] MEDS: MEMANTINE HCL 5MG TABLET PO SCH (09:37)
[2019-03-03] MEDS: CITALOPRAM HYDROBROMIDE 10MG TABLET PO SCH (09:37)
[2019-03-03] MEDS: LOSARTAN POTASSIUM 100 MG TABLET PO SCH (09:38)
[2019-03-03] MEDS: TAMSULOSIN HCL 0.4MG SR CAPSULE PO SCH (09:44)
[2019-03-03] MEDS: NIFEDIPINE XL 90MG TAB PO SCH (09:45)
[2019-03-03] MEDS: QUETIAPINE FUMARATE 25MG TABLET PO SCH (09:45)
[2019-03-03] MEDS: NYSTATIN POWDER 15GM TOP SCH ×2 (10:50→20:29)
[2019-03-03 20:00] VITALS: BP 98/53
[2019-03-03] MEDS ORDERED: BISACODYL 5MG TABLET PO PRN (20:15)
[2019-03-03] MEDS ORDERED: LACTULOSE 20G/30ML UDC PO PRN (20:15)
[2019-03-03 21:18] VITALS: BP 105/57
[2019-03-04] MEDS: ALBUTEROL (0.083%) 2.5MG/3ML NEB HHN SCH ×4 (02:37→21:03)
[2019-03-04] MEDS: HYDRALAZINE HCL 100MG TABLET PO SCH ×3 (06:00→21:49)
[2019-03-04] MEDS: METOCLOPRAMIDE HCL 5MG TABLET PO SCH (06:03)
[2019-03-04] MEDS: INSULIN LISPRO 100 UNITS/ML SUBCUT SCH ×4 (06:07→21:00)
[2019-03-04] MEDS: BLOOD SUGAR DIAGNOSTIC STRIP TEST SCH ×4 (06:07→21:49)
[2019-03-04 06:46] LABS: BASOPHILS % 1.4 % (0.0-2.0); EOSINOPHILS % 2.2 % (0.0-5.0); HEMATOCRIT. 27.9 % (42.0-52.0); HEMOGLOBIN. 9.6 g/dL (14.0-18.0); LYMPHOCYTES % 28.8 % (20.0-50.0); MEAN CORPUSCULAR HEMOGLOBIN 33.2 pg (28.0-32.0); MEAN CORPUSCULAR VOLUME 96.7 fL (80.0-94.0); MEAN PLATELET VOLUME 7.5 fl (7.4-10.4); MONOCYTES % 8.7 % (2.0-8.0); NEUTROPHILS % 58.9 % (40.0-76.0); PLATELET 291 x1000/uL (130-400); RED BLOOD CELL COUNT 2.89 mill/uL (4.7-6.1); RED CELL DISTRIBUTION WIDTH 19.2 % (11.6-14.6)
[2019-03-04 08:00] VITALS: BP 131/63
[2019-03-04] MEDS: SEVELAMER CARBONATE 800 MG TABLET PO SCH ×3 (09:11→17:00)
[2019-03-04] MEDS: BICALUTAMIDE 50 MG TABLET PO SCH (09:11)
[2019-03-04] MEDS: QUETIAPINE FUMARATE 25MG TABLET PO SCH (09:12)
[2019-03-04] MEDS: CITALOPRAM HYDROBROMIDE 10MG TABLET PO SCH (09:12)
[2019-03-04] MEDS: TAMSULOSIN HCL 0.4MG SR CAPSULE PO SCH (09:12)
[2019-03-04] MEDS: LEVETIRACETAM 500MG TABLET PO SCH ×2 (09:13→17:00)
[2019-03-04] MEDS: MEMANTINE HCL 5MG TABLET PO SCH (09:13)
[2019-03-04] MEDS: NIFEDIPINE XL 60MG TAB PO SCH (09:13)
[2019-03-04] MEDS: LOSARTAN POTASSIUM 25 MG TABLET PO SCH (09:13)
[2019-03-04] MEDS: NYSTATIN POWDER 15GM TOP SCH ×2 (09:14→21:49)
[2019-03-04] MEDS: ENOXAPARIN 30MG/0.3ML SYR SUBCUT SCH (09:14)
[2019-03-04 20:00] VITALS: BP 114/91
[2019-03-04] MEDS: EPOETIN ALFA 10000UNITS/ML VIAL SUBCUT SCH (21:49)
[2019-03-05] MEDS: ALBUTEROL (0.083%) 2.5MG/3ML NEB HHN SCH ×4 (01:03→20:50)
[2019-03-05] MEDS: HYDRALAZINE HCL 100MG TABLET PO SCH ×3 (05:46→21:06)
[2019-03-05] MEDS: BLOOD SUGAR DIAGNOSTIC STRIP TEST SCH ×4 (06:02→21:06)
[2019-03-05] MEDS: METOCLOPRAMIDE HCL 5MG TABLET PO SCH (06:02)
[2019-03-05] MEDS: INSULIN LISPRO 100 UNITS/ML SUBCUT SCH ×4 (06:03→21:00)
[2019-03-05 08:04] LABS: BASOPHILS % 1.3 % (0.0-2.0); EOSINOPHILS % 2.3 % (0.0-5.0); HEMATOCRIT. 29.1 % (42.0-52.0); HEMOGLOBIN. 9.7 g/dL (14.0-18.0); LYMPHOCYTES % 23.4 % (20.0-50.0); MEAN CORPUSCULAR HEMOGLOBIN 32.5 pg (28.0-32.0); MEAN CORPUSCULAR VOLUME 97.4 fL (80.0-94.0); MEAN PLATELET VOLUME 7.8 fl (7.4-10.4); MONOCYTES % 7.7 % (2.0-8.0); NEUTROPHILS % 65.3 % (40.0-76.0); PLATELET 308 x1000/uL (130-400); RED BLOOD CELL COUNT 2.99 mill/uL (4.7-6.1)
[2019-03-05 08:11] VITALS: BP 130/80
[2019-03-05] MEDS: BICALUTAMIDE 50 MG TABLET PO SCH (08:26)
[2019-03-05] MEDS: ENOXAPARIN 30MG/0.3ML SYR SUBCUT SCH (08:27)
[2019-03-05] MEDS: SEVELAMER CARBONATE 800 MG TABLET PO SCH ×3 (08:27→17:10)
[2019-03-05] MEDS: TAMSULOSIN HCL 0.4MG SR CAPSULE PO SCH (08:28)
[2019-03-05] MEDS: CITALOPRAM HYDROBROMIDE 10MG TABLET PO SCH (08:28)
[2019-03-05] MEDS: NIFEDIPINE XL 60MG TAB PO SCH (08:28)
[2019-03-05] MEDS: LOSARTAN POTASSIUM 25 MG TABLET PO SCH (08:29)
[2019-03-05] MEDS: MEMANTINE HCL 5MG TABLET PO SCH (08:29)
[2019-03-05] MEDS: LEVETIRACETAM 500MG TABLET PO SCH ×2 (08:29→17:10)
[2019-03-05] MEDS: NYSTATIN POWDER 15GM TOP SCH ×2 (08:29→21:11)
[2019-03-05] MEDS: QUETIAPINE FUMARATE 25MG TABLET PO SCH (08:29)
[2019-03-05 12:50] VITALS: BP 183/82
[2019-03-05 15:30] VITALS: BP 104/65
[2019-03-05 20:00] VITALS: BP 97/61
[2019-03-06] MEDS: ALBUTEROL (0.083%) 2.5MG/3ML NEB HHN SCH ×4 (01:10→21:53)
[2019-03-06] MEDS: HYDRALAZINE HCL 100MG TABLET PO SCH ×3 (05:41→22:00)
[2019-03-06 05:58] LABS: BASOPHILS % 1.6 % (0.0-2.0); EOSINOPHILS % 2.9 % (0.0-5.0); HEMATOCRIT. 29.1 % (42.0-52.0); HEMOGLOBIN. 9.7 g/dL (14.0-18.0); LYMPHOCYTES % 31.6 % (20.0-50.0); MEAN CORPUSCULAR HEMOGLOBIN 32.3 pg (28.0-32.0); MEAN CORPUSCULAR VOLUME 97.7 fL (80.0-94.0); MEAN PLATELET VOLUME 7.2 fl (7.4-10.4); MONOCYTES % 9.7 % (2.0-8.0); NEUTROPHILS % 54.2 % (40.0-76.0); PLATELET 283 x1000/uL (130-400); RED BLOOD CELL COUNT 2.98 mill/uL (4.7-6.1); RED CELL DISTRIBUTION WIDTH 18.5 % (11.6-14.6)
[2019-03-06] MEDS: BLOOD SUGAR DIAGNOSTIC STRIP TEST SCH ×4 (06:03→20:54)
[2019-03-06] MEDS: INSULIN LISPRO 100 UNITS/ML SUBCUT SCH ×4 (06:04→20:54)
[2019-03-06] MEDS: METOCLOPRAMIDE HCL 5MG TABLET PO SCH (06:13)
[2019-03-06 08:07] VITALS: BP 186/88
[2019-03-06] MEDS: ENOXAPARIN 30MG/0.3ML SYR SUBCUT SCH (08:33)
[2019-03-06] MEDS: SEVELAMER CARBONATE 800 MG TABLET PO SCH ×3 (08:33→16:25)
[2019-03-06] MEDS: LEVETIRACETAM 500MG TABLET PO SCH ×2 (08:33→16:24)
[2019-03-06] MEDS: NIFEDIPINE XL 60MG TAB PO SCH (08:34)
[2019-03-06] MEDS: LOSARTAN POTASSIUM 25 MG TABLET PO SCH (08:34)
[2019-03-06] MEDS: CITALOPRAM HYDROBROMIDE 10MG TABLET PO SCH (08:34)
[2019-03-06] MEDS: TAMSULOSIN HCL 0.4MG SR CAPSULE PO SCH (08:34)
[2019-03-06] MEDS: MEMANTINE HCL 5MG TABLET PO SCH (08:34)
[2019-03-06] MEDS: QUETIAPINE FUMARATE 25MG TABLET PO SCH (08:35)
[2019-03-06] MEDS: BICALUTAMIDE 50 MG TABLET PO SCH (08:37)
[2019-03-06] MEDS: NYSTATIN POWDER 15GM TOP SCH ×2 (08:37→20:54)
[2019-03-06 14:00] VITALS: BP 108/68
[2019-03-06 20:00] VITALS: BP 97/65
[2019-03-06] MEDS: EPOETIN ALFA 10000UNITS/ML VIAL SUBCUT SCH (21:00)
[2019-03-07] MEDS: ALBUTEROL (0.083%) 2.5MG/3ML NEB HHN SCH ×3 (01:45→14:37)
[2019-03-07] MEDS: METOCLOPRAMIDE HCL 5MG TABLET PO SCH (06:27)
[2019-03-07] MEDS: HYDRALAZINE HCL 100MG TABLET PO SCH ×2 (06:27→13:59)
[2019-03-07] MEDS: BLOOD SUGAR DIAGNOSTIC STRIP TEST SCH ×2 (06:28→11:15)
[2019-03-07] MEDS: INSULIN LISPRO 100 UNITS/ML SUBCUT SCH ×2 (06:35→13:00)
[2019-03-07 08:00] VITALS: BP 192/96
[2019-03-07] MEDS: NYSTATIN POWDER 15GM TOP SCH (08:52)
[2019-03-07] MEDS: BICALUTAMIDE 50 MG TABLET PO SCH (08:52)
[2019-03-07] MEDS: ENOXAPARIN 30MG/0.3ML SYR SUBCUT SCH (08:52)
[2019-03-07] MEDS: LOSARTAN POTASSIUM 25 MG TABLET PO SCH (08:52)
[2019-03-07] MEDS: LEVETIRACETAM 500MG TABLET PO SCH (08:52)
[2019-03-07] MEDS: SEVELAMER CARBONATE 800 MG TABLET PO SCH ×2 (08:52→13:59)
[2019-03-07] MEDS: MEMANTINE HCL 5MG TABLET PO SCH (08:53)
[2019-03-07] MEDS: QUETIAPINE FUMARATE 25MG TABLET PO SCH (08:54)
[2019-03-07] MEDS: CITALOPRAM HYDROBROMIDE 10MG TABLET PO SCH (08:54)
[2019-03-07] MEDS: NIFEDIPINE XL 60MG TAB PO SCH (08:54)
[2019-03-07] MEDS: TAMSULOSIN HCL 0.4MG SR CAPSULE PO SCH (08:55)
[2019-03-07 12:50] VITALS: BP 164/94
== END 2019-03-07 15:30 | disposition home health service (06) | DRG 91 ==
PROVIDERS: ADMIT Psychiatry & Neurology Neurology; ATTEND Internal Medicine Geriatric Medicine
PROC: 5A1D70Z Performance of Urinary Filtration, Intermittent, Less than 6 Hours Per Day (ICD-10-PCS; principal; 2019-02-22)
PROC: 5A1D70Z Performance of Urinary Filtration, Intermittent, Less than 6 Hours Per Day (ICD-10-PCS; 2019-02-22)
PROC: 5A1D70Z Performance of Urinary Filtration, Intermittent, Less than 6 Hours Per Day (ICD-10-PCS; 2019-02-22)
PROC: 5A1D70Z Performance of Urinary Filtration, Intermittent, Less than 6 Hours Per Day (ICD-10-PCS; 2019-02-22)
PROC: 5A1D70Z Performance of Urinary Filtration, Intermittent, Less than 6 Hours Per Day (ICD-10-PCS; 2019-02-22)
PROC: 5A1D70Z Performance of Urinary Filtration, Intermittent, Less than 6 Hours Per Day (ICD-10-PCS; 2019-02-22)
DX: G92 Toxic encephalopathy (principal); N18.6 End stage renal disease; I13.2 Hypertensive heart and chronic kidney disease with heart failure and with stage 5 chronic kidney disease, or end stage renal disease; E22.2 Syndrome of inappropriate secretion of antidiuretic hormone; T82.7XXA Infection and inflammatory reaction due to other cardiac and vascular devices, implants and grafts, initial encounter; I70.0 Atherosclerosis of aorta; I50.9 Heart failure, unspecified; E11.22 Type 2 diabetes mellitus with diabetic chronic kidney disease; D63.1 Anemia in chronic kidney disease; G40.909 Epilepsy, unspecified, not intractable, without status epilepticus; F03.90 Unspecified dementia, unspecified severity, without behavioral disturbance, psychotic disturbance, mood disturbance, and anxiety; M85.80 Other specified disorders of bone density and structure, unspecified site; D72.829 Elevated white blood cell count, unspecified; R53.81 Other malaise; E87.70 Fluid overload, unspecified; E11.40 Type 2 diabetes mellitus with diabetic neuropathy, unspecified; I95.9 Hypotension, unspecified; Y84.1 Kidney dialysis as the cause of abnormal reaction of the patient, or of later complication, without mention of misadventure at the time of the procedure; Z85.46 Personal history of malignant neoplasm of prostate; Z99.2 Dependence on renal dialysis; Z86.73 Personal history of transient ischemic attack (TIA), and cerebral infarction without residual deficits; Z79.899 Other long term (current) drug therapy; Y92.89 Other specified places as the place of occurrence of the external cause; Z68.21 Body mass index [BMI] 21.0-21.9, adult
CPT/HCPCS: 36415; 80048; 80202; 82962; 83540; 83550; 85025; 92523; 92610; 93970; 94640; 97110; 97112; 97116; 97150; 97162; 97166; 97530; 97535; A6261; J0885; J1650; J1815; J2060; J2543; J3370; J7040; J7060; J7611; J7620; J8597

== ENCOUNTER 2019-05-02 14:46 | Inpatient (IN) | payer MEDICARE, MEDICAID ==
[~2019-05-02] VITALS: Ht 182.9 cm; Wt 56.7 kg
[~2019-05-02 14:46] MED LIST changes: -GLIM2TAB2 PO; +GLIM2TAB30 PO; -NIFE90TA34 PO; +NIFE90TA60 PO
[2019-05-02 19:48] LABS: BASOPHILS % 0.6 % (0.0-2.0); EOSINOPHILS % 1.5 % (0.0-5.0); HEMATOCRIT. 30.9 % (42.0-52.0); HEMOGLOBIN. 10.4 g/dL (14.0-18.0); LYMPHOCYTES % 20.3 % (20.0-50.0); MEAN CORPUSCULAR HEMOGLOBIN 32.1 pg (28.0-32.0); MEAN CORPUSCULAR VOLUME 94.9 fL (80.0-94.0); MEAN PLATELET VOLUME 7.8 fl (7.4-10.4); MONOCYTES % 7.4 % (2.0-8.0); NEUTROPHILS % 70.2 % (40.0-76.0); PLATELET 184 x1000/uL (130-400); RED BLOOD CELL COUNT 3.25 mill/uL (4.7-6.1); RED CELL DISTRIBUTION WIDTH 17.9 % (11.6-14.6)
[2019-05-02 19:57] LABS: CHLORIDE 101 mEq/L (98-107)
[2019-05-02 20:01] LABS: ETHANOL BLOOD < 10 mg/dL
[2019-05-02 20:03] LABS: PHOSPHORUS 2.7 mg/dL (2.5-4.9)
[2019-05-03] MEDS ORDERED: MAGNESIUM/ALUMINUM HYDROXIDE/SIMETHICONE 30ML UDC PO PRN (00:15)
[2019-05-03] MEDS ORDERED: GUAIFENESIN 200MG/10ML SUGAR FREE UDC PO PRN (00:15)
[2019-05-03] MEDS ORDERED: ONDANSETRON HCL 4MG/2ML INJ IV PRN (00:15)
[2019-05-03] MEDS ORDERED: ACETAMINOPHEN 325MG TABLET PO PRN (00:15)
[2019-05-03] MEDS ORDERED: METOCLOPRAMIDE HCL 10MG TABLET PO PRN (00:30)
[2019-05-03] MEDS ORDERED: LEVETIRACETAM 500MG TABLET PO SCH (02:00)
[2019-05-03] MEDS: CLONIDINE 0.1MG TABLET PO PRN (05:10)
[2019-05-03 06:04] LABS: CREATINE KINASE MB FRACTION 1.1 ng/mL (0.5-3.6)
[2019-05-03] MEDS ORDERED: FUROSEMIDE 40MG/4ML VIAL IVP ONE (06:37)
[2019-05-03] MEDS: FAMOTIDINE 20MG TABLET PO SCH (09:00)
[2019-05-03] MEDS ORDERED: SEVELAMER CARBONATE 800 MG TABLET PO SCH (09:00)
[2019-05-03] MEDS: SEVELAMER CARBONATE 800 MG TABLET PO SCH ×3 (09:17→17:33)
[2019-05-03] MEDS: NIFEDIPINE XL 90MG TAB PO SCH (09:19)
[2019-05-03] MEDS ORDERED: HYDRALAZINE HCL 100MG TABLET PO SCH (10:00)
[2019-05-03] MEDS ORDERED: BICALUTAMIDE 50 MG TABLET PO NR (10:00)
[2019-05-03] MEDS: LOSARTAN POTASSIUM 50 MG TABLET PO SCH (10:00)
[2019-05-03] MEDS ORDERED: CITALOPRAM HYDROBROMIDE 10MG TABLET PO NR (10:00)
[2019-05-03] MEDS ORDERED: DOCUSATE SODIUM 250MG CAPSULE PO NR (10:00)
[2019-05-03] MEDS ORDERED: MEMANTINE HCL 5MG TABLET PO NR (10:00)
[2019-05-03] MEDS: ENOXAPARIN 30MG/0.3ML SYR SUBCUT SCH (10:06)
[2019-05-03 10:28] LABS: EOSINOPHILS % 1.6 % (0.0-5.0); HEMATOCRIT. 29.8 % (42.0-52.0); HEMOGLOBIN. 10.2 g/dL (14.0-18.0); LYMPHOCYTES % 25.9 % (20.0-50.0); MEAN CORPUSCULAR HEMOGLOBIN 32.4 pg (28.0-32.0); MEAN CORPUSCULAR VOLUME 94.8 fL (80.0-94.0); MEAN PLATELET VOLUME 7.6 fl (7.4-10.4); MONOCYTES % 8.4 % (2.0-8.0); NEUTROPHILS % 63.1 % (40.0-76.0); PLATELET 168 x1000/uL (130-400); RED BLOOD CELL COUNT 3.15 mill/uL (4.7-6.1); RED CELL DISTRIBUTION WIDTH 17.5 % (11.6-14.6)
[2019-05-03] MEDS: IPRATROPIUM/ALBUTEROL 0.5-3(2.5)MG/3ML NEB HHN SCH (13:41)
[2019-05-03 16:42] VITALS: BP 132/65
[2019-05-03 16:43] VITALS: BP 132/65
[2019-05-03] MEDS: MONTELUKAST SODIUM 10MG TABLET PO SCH (17:33)
[2019-05-03] MEDS ORDERED: DEXTROSE 50% WATER 50ML SYRINGE IV PRN (18:15)
[2019-05-03 20:00] VITALS: BP 126/58
[2019-05-03] MEDS: BLOOD SUGAR DIAGNOSTIC STRIP TEST SCH (21:40)
[2019-05-03] MEDS: LEVETIRACETAM 500MG TABLET PO SCH (21:44)
[2019-05-03] MEDS: HYDRALAZINE HCL 100MG TABLET PO SCH (21:44)
[2019-05-03] MEDS: QUETIAPINE FUMARATE 25MG TABLET PO SCH (21:44)
[2019-05-04] MEDS: IPRATROPIUM/ALBUTEROL 0.5-3(2.5)MG/3ML NEB HHN SCH ×6 (00:01→21:32)
[2019-05-04 04:34] VITALS: BP 144/69
[2019-05-04] MEDS: HYDRALAZINE HCL 100MG TABLET PO SCH ×3 (05:16→22:35)
[2019-05-04] MEDS: BLOOD SUGAR DIAGNOSTIC STRIP TEST SCH ×4 (06:22→21:00)
[2019-05-04 06:57] LABS: CHLORIDE 104 mEq/L (98-107)
[2019-05-04 07:19] LABS: BASOPHILS % 0.7 % (0.0-2.0); EOSINOPHILS % 0.6 % (0.0-5.0); HEMATOCRIT. 30.9 % (42.0-52.0); HEMOGLOBIN. 10.5 g/dL (14.0-18.0); LYMPHOCYTES % 20.1 % (20.0-50.0); MEAN CORPUSCULAR HEMOGLOBIN 32.3 pg (28.0-32.0); MEAN CORPUSCULAR VOLUME 95.2 fL (80.0-94.0); MONOCYTES % 7.4 % (2.0-8.0); NEUTROPHILS % 71.2 % (40.0-76.0); PLATELET 184 x1000/uL (130-400); RED BLOOD CELL COUNT 3.25 mill/uL (4.7-6.1); RED CELL DISTRIBUTION WIDTH 17.2 % (11.6-14.6)
[2019-05-04 08:00] VITALS: BP 127/70
[2019-05-04] MEDS ORDERED: BICALUTAMIDE 50 MG TABLET PO SCH (09:00)
[2019-05-04] MEDS ORDERED: ENOXAPARIN 30MG/0.3ML SYR SUBCUT SCH (09:00)
[2019-05-04] MEDS: LOSARTAN POTASSIUM 50 MG TABLET PO SCH (09:56)
[2019-05-04] MEDS: MEMANTINE HCL 5MG TABLET PO SCH (09:56)
[2019-05-04] MEDS: LEVETIRACETAM 500MG TABLET PO SCH ×2 (09:56→22:32)
[2019-05-04] MEDS: DOCUSATE SODIUM 250MG CAPSULE PO SCH (09:56)
[2019-05-04] MEDS: CITALOPRAM HYDROBROMIDE 10MG TABLET PO SCH (09:56)
[2019-05-04] MEDS: NIFEDIPINE XL 90MG TAB PO SCH (09:56)
[2019-05-04] MEDS: SEVELAMER CARBONATE 800 MG TABLET PO SCH ×3 (09:57→18:18)
[2019-05-04] MEDS: FAMOTIDINE 20MG TABLET PO SCH (09:57)
[2019-05-04] MEDS: ENOXAPARIN 30MG/0.3ML SYR SUBCUT SCH (09:58)
[2019-05-04 12:00] VITALS: BP 97/55
[2019-05-04 16:00] VITALS: BP 127/60
[2019-05-04] MEDS: MONTELUKAST SODIUM 10MG TABLET PO SCH (16:51)
[2019-05-04 20:00] VITALS: BP 132/64
[2019-05-04] MEDS: QUETIAPINE FUMARATE 25MG TABLET PO SCH (22:35)
[2019-05-05] VITALS: BP 155/74
[2019-05-05] MEDS: IPRATROPIUM/ALBUTEROL 0.5-3(2.5)MG/3ML NEB HHN SCH ×5 (01:10→16:20)
[2019-05-05 04:00] VITALS: BP 177/89
[2019-05-05] MEDS: CLONIDINE 0.1MG TABLET PO PRN (04:13)
[2019-05-05] MEDS: HYDRALAZINE HCL 100MG TABLET PO SCH ×3 (05:44→21:24)
[2019-05-05] MEDS: BLOOD SUGAR DIAGNOSTIC STRIP TEST SCH ×4 (06:43→21:28)
[2019-05-05 08:00] VITALS: BP 170/86
[2019-05-05] MEDS: SEVELAMER CARBONATE 800 MG TABLET PO SCH ×3 (09:59→17:47)
[2019-05-05] MEDS: LEVETIRACETAM 500MG TABLET PO SCH ×2 (09:59→21:24)
[2019-05-05] MEDS: FAMOTIDINE 20MG TABLET PO SCH (10:00)
[2019-05-05] MEDS: NIFEDIPINE XL 90MG TAB PO SCH (10:00)
[2019-05-05] MEDS: CITALOPRAM HYDROBROMIDE 10MG TABLET PO SCH (10:00)
[2019-05-05] MEDS: DOCUSATE SODIUM 250MG CAPSULE PO SCH (10:00)
[2019-05-05] MEDS: LOSARTAN POTASSIUM 50 MG TABLET PO SCH (10:00)
[2019-05-05] MEDS: MEMANTINE HCL 5MG TABLET PO SCH (10:00)
[2019-05-05] MEDS: ENOXAPARIN 30MG/0.3ML SYR SUBCUT SCH (10:01)
[2019-05-05 12:00] VITALS: BP 118/56
[2019-05-05] MEDS: METOPROLOL TARTRATE 25MG TABLET PO SCH ×2 (14:25→21:25)
[2019-05-05 16:00] VITALS: BP 120/58
[2019-05-05] MEDS: MONTELUKAST SODIUM 10MG TABLET PO SCH (17:42)
[2019-05-05] MEDS: BICALUTAMIDE 50 MG TABLET PO SCH (17:43)
[2019-05-05 20:00] VITALS: BP 123/89
[2019-05-05] MEDS: QUETIAPINE FUMARATE 25MG TABLET PO SCH (21:24)
[2019-05-06] VITALS: BP 123/70
[2019-05-06] MEDS: IPRATROPIUM/ALBUTEROL 0.5-3(2.5)MG/3ML NEB HHN SCH ×5 (01:05→20:08)
[2019-05-06 04:00] VITALS: BP 145/66
[2019-05-06] MEDS: HYDRALAZINE HCL 100MG TABLET PO SCH ×3 (06:25→21:34)
[2019-05-06] MEDS: BLOOD SUGAR DIAGNOSTIC STRIP TEST SCH ×4 (06:25→21:30)
[2019-05-06 07:09] LABS: BASOPHILS % 0.6 % (0.0-2.0); EOSINOPHILS % 1.7 % (0.0-5.0); HEMATOCRIT. 29.3 % (42.0-52.0); HEMOGLOBIN. 9.7 g/dL (14.0-18.0); LYMPHOCYTES % 29.5 % (20.0-50.0); MEAN CORPUSCULAR HEMOGLOBIN 31.4 pg (28.0-32.0); MEAN CORPUSCULAR VOLUME 94.8 fL (80.0-94.0); MEAN PLATELET VOLUME 7.9 fl (7.4-10.4); MONOCYTES % 10.7 % (2.0-8.0); NEUTROPHILS % 57.5 % (40.0-76.0); PLATELET 176 x1000/uL (130-400); RED BLOOD CELL COUNT 3.09 mill/uL (4.7-6.1); RED CELL DISTRIBUTION WIDTH 17.7 % (11.6-14.6)
[2019-05-06 08:04] VITALS: BP 190/86
[2019-05-06] MEDS: LEVETIRACETAM 500MG TABLET PO SCH ×2 (08:06→21:30)
[2019-05-06] MEDS: CITALOPRAM HYDROBROMIDE 10MG TABLET PO SCH (08:07)
[2019-05-06] MEDS: SEVELAMER CARBONATE 800 MG TABLET PO SCH ×3 (08:07→17:58)
[2019-05-06] MEDS: BICALUTAMIDE 50 MG TABLET PO SCH (08:07)
[2019-05-06] MEDS: MEMANTINE HCL 5MG TABLET PO SCH (08:07)
[2019-05-06] MEDS: FAMOTIDINE 20MG TABLET PO SCH (08:07)
[2019-05-06] MEDS: DOCUSATE SODIUM 250MG CAPSULE PO SCH (08:07)
[2019-05-06] MEDS: LOSARTAN POTASSIUM 50 MG TABLET PO SCH (08:08)
[2019-05-06] MEDS: ENOXAPARIN 30MG/0.3ML SYR SUBCUT SCH (08:08)
[2019-05-06] MEDS: METOPROLOL TARTRATE 25MG TABLET PO SCH ×2 (08:08→21:31)
[2019-05-06] MEDS: NIFEDIPINE XL 90MG TAB PO SCH (08:09)
[2019-05-06 12:00] VITALS: BP 170/84
[2019-05-06] MEDS: MONTELUKAST SODIUM 10MG TABLET PO SCH (17:58)
[2019-05-06 20:00] VITALS: BP 176/89
[2019-05-06] MEDS: QUETIAPINE FUMARATE 25MG TABLET PO SCH (21:28)
[2019-05-07] VITALS (10 sets, daily range): BP systolic 20–202; BP diastolic 65–142
[2019-05-07] MEDS: IPRATROPIUM/ALBUTEROL 0.5-3(2.5)MG/3ML NEB HHN SCH ×5 (01:12→16:09)
[2019-05-07] MEDS: HYDRALAZINE HCL 100MG TABLET PO SCH ×2 (05:17→14:30)
[2019-05-07] MEDS: CLONIDINE 0.1MG TABLET PO PRN ×2 (05:17→16:24)
[2019-05-07] MEDS: BLOOD SUGAR DIAGNOSTIC STRIP TEST SCH ×3 (07:46→17:09)
[2019-05-07] MEDS: CITALOPRAM HYDROBROMIDE 10MG TABLET PO SCH (08:58)
[2019-05-07] MEDS: MEMANTINE HCL 5MG TABLET PO SCH (08:59)
[2019-05-07] MEDS: LOSARTAN POTASSIUM 50 MG TABLET PO SCH (08:59)
[2019-05-07] MEDS: NIFEDIPINE XL 90MG TAB PO SCH (08:59)
[2019-05-07] MEDS: FAMOTIDINE 20MG TABLET PO SCH (08:59)
[2019-05-07] MEDS: DOCUSATE SODIUM 250MG CAPSULE PO SCH (08:59)
[2019-05-07] MEDS: SEVELAMER CARBONATE 800 MG TABLET PO SCH ×3 (09:00→16:24)
[2019-05-07] MEDS: METOPROLOL TARTRATE 25MG TABLET PO SCH (09:00)
[2019-05-07] MEDS: LEVETIRACETAM 500MG TABLET PO SCH (09:00)
[2019-05-07] MEDS: ENOXAPARIN 30MG/0.3ML SYR SUBCUT SCH (09:02)
[2019-05-07] MEDS: BICALUTAMIDE 50 MG TABLET PO SCH (09:15)
[2019-05-07] MEDS: MONTELUKAST SODIUM 10MG TABLET PO SCH (16:24)
== END 2019-05-07 20:30 | DRG 70 ==
LOC: ER 14:46 → 6WST 22:32 → ENRESERV 05-03 14:10
PROVIDERS: ADMIT Internal Medicine Geriatric Medicine; ATTEND Internal Medicine Geriatric Medicine
PROC: 5A1D70Z Performance of Urinary Filtration, Intermittent, Less than 6 Hours Per Day (ICD-10-PCS; principal; 2019-05-03)
PROC: 5A1D70Z Performance of Urinary Filtration, Intermittent, Less than 6 Hours Per Day (ICD-10-PCS; 2019-05-05)
PROC: 5A1D70Z Performance of Urinary Filtration, Intermittent, Less than 6 Hours Per Day (ICD-10-PCS; 2019-05-07)
DX: G93.49 Other encephalopathy (principal); N18.6 End stage renal disease; J81.0 Acute pulmonary edema; I13.11 Hypertensive heart and chronic kidney disease without heart failure, with stage 5 chronic kidney disease, or end stage renal disease; E87.1 Hypo-osmolality and hyponatremia; F03.91 Unspecified dementia, unspecified severity, with behavioral disturbance; I47.2 Ventricular tachycardia; Z68.1 Body mass index [BMI] 19.9 or less, adult; E11.22 Type 2 diabetes mellitus with diabetic chronic kidney disease; E87.5 Hyperkalemia; D63.1 Anemia in chronic kidney disease; J44.9 Chronic obstructive pulmonary disease, unspecified; M81.0 Age-related osteoporosis without current pathological fracture; E11.43 Type 2 diabetes mellitus with diabetic autonomic (poly)neuropathy; E78.5 Hyperlipidemia, unspecified; F17.200 Nicotine dependence, unspecified, uncomplicated; G40.909 Epilepsy, unspecified, not intractable, without status epilepticus; I27.20 Pulmonary hypertension, unspecified; K57.90 Diverticulosis of intestine, part unspecified, without perforation or abscess without bleeding; M19.90 Unspecified osteoarthritis, unspecified site; K31.84 Gastroparesis; R62.7 Adult failure to thrive; Z79.84 Long term (current) use of oral hypoglycemic drugs; Z85.46 Personal history of malignant neoplasm of prostate; Z86.79 Personal history of other diseases of the circulatory system; Z99.2 Dependence on renal dialysis; Z90.49 Acquired absence of other specified parts of digestive tract; Z79.899 Other long term (current) drug therapy; Z90.89 Acquired absence of other organs; I69.398 Other sequelae of cerebral infarction
CPT/HCPCS: 36415; 70551; 71045; 80048; 80051; 80053; 80307; 80320; 80329; 82140; 82553; 82962; 83735; 84100; 84443; 84484; 85025; 93005; 93306; 94640; 96374; 97162; 97530; 99285; J1650; J1940; G0480

== ENCOUNTER 2019-08-02 17:37 | Inpatient (IN) | payer MEDICARE, MEDICAID ==
[~2019-08-02] VITALS: Ht 185.4 cm; Wt 60.8 kg
[2019-08-02 19:07] LABS: EOSINOPHILS % 0.1 % (0.0-5.0); HEMATOCRIT. 30.2 % (42.0-52.0); HEMOGLOBIN. 10.1 g/dL (14.0-18.0); LYMPHOCYTES % 20.1 % (20.0-50.0); MEAN CORPUSCULAR HEMOGLOBIN 32.6 pg (28.0-32.0); MEAN CORPUSCULAR VOLUME 97.8 fL (80.0-94.0); MEAN PLATELET VOLUME 8.5 fl (7.4-10.4); MONOCYTES % 11.5 % (2.0-8.0); NEUTROPHILS % 67.3 % (40.0-76.0); PLATELET 270 x1000/uL (130-400); RED BLOOD CELL COUNT 3.08 mill/uL (4.7-6.1); RED CELL DISTRIBUTION WIDTH 17.8 % (11.6-14.6)
[2019-08-02 19:10] LABS: CHLORIDE 98 mEq/L (98-107)
[2019-08-02 19:13] LABS: INR 1.2; PROTHROMBIN TIME 13.4 sec (9.6-11.0)
[2019-08-02 19:14] LABS: ETHANOL BLOOD < 10 mg/dL
[2019-08-02] MEDS ORDERED: PIPERACILLIN/TAZOBACTAM 2.25 G in DEXTROSE 5% WATER 50 ML IV SCH (20:15)
[2019-08-02] MEDS ORDERED: PIPERACILLIN/TAZOBACTAM 3.375GM/50ML PREMIX IV ONE (20:15)
[2019-08-02 21:57] LABS: CLARITY URINE CLEAR (CLEAR); COLOR URINE YELLOW (YELLOW); KETONES URINE NEGATIVE (NEGATIVE); LEUKOCYTE ESTERASE URINE NEGATIVE (NEGATIVE); NITRITE URINE NEGATIVE (NEGATIVE); OCCULT BLOOD URINE NEGATIVE (NEGATIVE); PH URINE >=9.0 (4.5-8.0); PROTEIN URINE 3+ (NEGATIVE); SPECIFIC GRAVITY URINE 1.012 (1.005-1.030); UROBILINOGEN URINE 0.2 E.U./dL (0.2-1.0)
[2019-08-02 22:08] LABS: *AMPHETAMINES SCREEN URINE NEGATIVE (NEGATIVE); *BARBITURATES SCREEN URINE NEGATIVE (NEGATIVE); *BENZODIAZEPINES SCREEN URINE NEGATIVE (NEGATIVE); *COCAINE SCREEN URINE NEGATIVE (NEGATIVE); CANNABINOID URINE SCREEN NEGATIVE (NEGATIVE); METHADONE URINE SCREEN NEGATIVE (NEGATIVE); OPIATES URINE SCREEN NEGATIVE (NEGATIVE); PHENCYCLIDINE URINE SCREEN NEGATIVE (NEGATIVE)
[2019-08-03] MEDS ORDERED: HYDRALAZINE 20MG/ML VIAL IV PRN (09:15)
[2019-08-03] MEDS ORDERED: LORAZEPAM 2MG/ML CPJ IV PRN (09:15)
[2019-08-03] MEDS ORDERED: ACETAMINOPHEN 650MG SUPP PR PRN (09:15)
[2019-08-03] MEDS ORDERED: DEXTROSE 50% WATER 50ML SYRINGE IV PRN (09:15)
[2019-08-03] MEDS ORDERED: DEXT 5%/0.45% NACL 1000ML 1,000 ML IV ONE (09:15)
[2019-08-03 10:42] LABS: HEMATOCRIT. 30.9 % (42.0-52.0); HEMOGLOBIN. 10.6 g/dL (14.0-18.0); MEAN CORPUSCULAR HEMOGLOBIN 33.8 pg (28.0-32.0); MEAN CORPUSCULAR VOLUME 98.2 fL (80.0-94.0); MEAN PLATELET VOLUME 8.1 fl (7.4-10.4); PLATELET 277 x1000/uL (130-400); RED BLOOD CELL COUNT 3.15 mill/uL (4.7-6.1); RED CELL DISTRIBUTION WIDTH 17.8 % (11.6-14.6)
[2019-08-03 10:50] LABS: CHLORIDE 99 mEq/L (98-107)
[2019-08-03] MEDS: BLOOD SUGAR DIAGNOSTIC STRIP TEST SCH ×3 (11:30→21:00)
[2019-08-03] MEDS: INSULIN LISPRO 100 UNITS/ML SUBCUT SCH ×3 (12:00→21:00)
[2019-08-03 13:57] LABS: PLATELET ESTIMATE NORMAL
[2019-08-03 15:28] VITALS: BP 153/90
[2019-08-03 16:00] VITALS: BP 132/98
[2019-08-03] MEDS ORDERED: LORA-249 PO (18:40)
[2019-08-03] MEDS ORDERED: CLON-457 PO (18:40)
[2019-08-03] MEDS ORDERED: IPRA4AER INH (18:40)
[2019-08-03] MEDS ORDERED: TOPUD PO (18:40)
[2019-08-03] MEDS ORDERED: METO25TA6 MT (18:43)
[2019-08-03] MEDS ORDERED: DOCU250C69 PO (18:43)
[2019-08-03] MEDS ORDERED: ONDA4TAB11 PO (18:43)
[2019-08-03] MEDS ORDERED: MONT10TA26 PO (18:43)
[2019-08-03] MEDS ORDERED: INSLIS SUBCUT (18:43)
[2019-08-03] MEDS ORDERED: CHOL400D16 PO (18:46)
[2019-08-03 20:00] VITALS: BP 172/97
[2019-08-04] VITALS: BP 146/60
[2019-08-04 04:00] VITALS: BP 110/69
[2019-08-04] MEDS: BLOOD SUGAR DIAGNOSTIC STRIP TEST SCH ×3 (07:40→21:32)
[2019-08-04 08:00] VITALS: BP 138/74
[2019-08-04] MEDS: INSULIN LISPRO 100 UNITS/ML SUBCUT SCH ×4 (08:10→21:00)
[2019-08-04 09:18] LABS: BASOPHILS % 0.6 % (0.0-2.0); EOSINOPHILS % 0.4 % (0.0-5.0); HEMOGLOBIN. 10.8 g/dL (14.0-18.0); LYMPHOCYTES % 19.3 % (20.0-50.0); MEAN CORPUSCULAR HEMOGLOBIN 33.8 pg (28.0-32.0); MEAN CORPUSCULAR VOLUME 99.8 fL (80.0-94.0); MEAN PLATELET VOLUME 8.3 fl (7.4-10.4); MONOCYTES % 12.4 % (2.0-8.0); NEUTROPHILS % 67.3 % (40.0-76.0); PLATELET 262 x1000/uL (130-400); RED BLOOD CELL COUNT 3.21 mill/uL (4.7-6.1)
[2019-08-04 12:00] VITALS: BP 131/74
[2019-08-04 16:00] VITALS: BP 112/76
[2019-08-04 20:00] VITALS: BP 135/90
[2019-08-05] VITALS: BP 117/73
[2019-08-05 04:00] VITALS: BP 93/52
[2019-08-05 05:06] LABS: EOSINOPHILS % 0.8 % (0.0-5.0); HEMATOCRIT. 31.5 % (42.0-52.0); HEMOGLOBIN. 10.6 g/dL (14.0-18.0); LYMPHOCYTES % 20.4 % (20.0-50.0); MEAN CORPUSCULAR HEMOGLOBIN 33.6 pg (28.0-32.0); MEAN CORPUSCULAR VOLUME 99.9 fL (80.0-94.0); MEAN PLATELET VOLUME 8.9 fl (7.4-10.4); MONOCYTES % 10.5 % (2.0-8.0); NEUTROPHILS % 67.3 % (40.0-76.0); PLATELET 293 x1000/uL (130-400); RED BLOOD CELL COUNT 3.16 mill/uL (4.7-6.1); RED CELL DISTRIBUTION WIDTH 17.9 % (11.6-14.6)
[2019-08-05] MEDS: BLOOD SUGAR DIAGNOSTIC STRIP TEST SCH ×4 (05:32→21:24)
[2019-08-05] MEDS: INSULIN LISPRO 100 UNITS/ML SUBCUT SCH ×4 (05:32→21:25)
[2019-08-05 08:00] VITALS: BP 84/64
[2019-08-05] MEDS: MIDODRINE HCL 2.5MG TABLET PO SCH ×3 (10:23→18:31)
[2019-08-05 12:00] VITALS: BP 112/68
[2019-08-05 16:00] VITALS: BP 101/70
[2019-08-05 20:00] VITALS: BP 91/53
[2019-08-06] VITALS: BP 111/72
[2019-08-06 04:00] VITALS: BP 133/75
[2019-08-06] MEDS: BLOOD SUGAR DIAGNOSTIC STRIP TEST SCH ×4 (06:00→20:12)
[2019-08-06] MEDS: INSULIN LISPRO 100 UNITS/ML SUBCUT SCH ×4 (06:03→20:12)
[2019-08-06 08:00] VITALS: BP 123/85
[2019-08-06] MEDS: MIDODRINE HCL 2.5MG TABLET PO SCH ×3 (09:07→17:00)
[2019-08-06 12:00] VITALS: BP 117/76
[2019-08-06 16:00] VITALS: BP 114/74
[2019-08-06 20:00] VITALS: BP 106/72
[2019-08-07] VITALS: BP 116/60
[2019-08-07 04:00] VITALS: BP 104/81
[2019-08-07] MEDS: INSULIN LISPRO 100 UNITS/ML SUBCUT SCH (06:53)
[2019-08-07] MEDS: BLOOD SUGAR DIAGNOSTIC STRIP TEST SCH (06:53)
[2019-08-07] MEDS: MIDODRINE HCL 2.5MG TABLET PO SCH (09:10)
[2019-08-07 13:09] VITALS: BP 105/81
== END 2019-08-07 13:56 | DRG 70 ==
LOC: ER 17:37 → MICUSO 08-03 02:06 → 7WST 08-03 13:34 → 5WST 08-04 11:52
PROVIDERS: ADMIT Hospitalist; ATTEND Hospitalist
PROC: 5A1D70Z Performance of Urinary Filtration, Intermittent, Less than 6 Hours Per Day (ICD-10-PCS; principal; 2019-08-03)
PROC: 5A1D70Z Performance of Urinary Filtration, Intermittent, Less than 6 Hours Per Day (ICD-10-PCS; 2019-08-04)
PROC: 5A1D70Z Performance of Urinary Filtration, Intermittent, Less than 6 Hours Per Day (ICD-10-PCS; 2019-08-07)
DX: G93.41 Metabolic encephalopathy (principal); N18.6 End stage renal disease; I12.0 Hypertensive chronic kidney disease with stage 5 chronic kidney disease or end stage renal disease; E46 Unspecified protein-calorie malnutrition; Z68.1 Body mass index [BMI] 19.9 or less, adult; E11.22 Type 2 diabetes mellitus with diabetic chronic kidney disease; F03.90 Unspecified dementia, unspecified severity, without behavioral disturbance, psychotic disturbance, mood disturbance, and anxiety; G40.909 Epilepsy, unspecified, not intractable, without status epilepticus; N28.9 Disorder of kidney and ureter, unspecified; L89.159 Pressure ulcer of sacral region, unspecified stage; J44.9 Chronic obstructive pulmonary disease, unspecified; Z85.46 Personal history of malignant neoplasm of prostate; Z99.2 Dependence on renal dialysis; Z03.818 Encounter for observation for suspected exposure to other biological agents ruled out; Z86.73 Personal history of transient ischemic attack (TIA), and cerebral infarction without residual deficits; Z90.49 Acquired absence of other specified parts of digestive tract; Z79.899 Other long term (current) drug therapy; Z90.89 Acquired absence of other organs
CPT/HCPCS: 36415; 71045; 80048; 80053; 80305; 80307; 80320; 80329; 81003; 82140; 82962; 83036; 83605; 83880; 84443; 84484; 85025; 87804; 92610; 93005; 95816; 96365; 99285; J1815; J2060; J2543; J7060; G0480; U0003-CS

== ENCOUNTER 2019-12-13 19:28 | Inpatient (IN) | payer MEDICARE, MEDICAID ==
[~2019-12-13] VITALS: Ht 188 cm; Wt 64.4 kg
[~2019-12-13 19:28] MED LIST changes: -ALFU10TA9 PO; +CHOL400D16 PO; +CLON-457 PO; +DOCU250C69 PO; -GALANTAMINE PO; -GLIM2TAB30 PO; -HYDR100T26 PO; +INSLIS SUBCUT; +IPRA4AER INH; +LORA-249 PO; -METO-293 PO; -METO-411 PO; +METO25TA6 MT; +MONT10TA26 PO; +ONDA4TAB11 PO; -QUET25TA PO; -RENAVITE PO; +TOPUD PO; -ZOLP5TAB8 PO
[2019-12-13 20:41] LABS: BASOPHILS % 1.2 % (0.0-2.0); EOSINOPHILS % 0.5 % (0.0-5.0); HEMATOCRIT. 38.4 % (42.0-52.0); HEMOGLOBIN. 12.6 g/dL (14.0-18.0); LYMPHOCYTES % 25.4 % (20.0-50.0); MEAN CORPUSCULAR HEMOGLOBIN 35.1 pg (28.0-32.0); MEAN CORPUSCULAR VOLUME 106.7 fL (80.0-94.0); MEAN PLATELET VOLUME 9.2 fl (7.4-10.4); MONOCYTES % 9.1 % (2.0-8.0); NEUTROPHILS % 63.8 % (40.0-76.0); PLATELET 169 x1000/uL (130-400); RED CELL DISTRIBUTION WIDTH 15.9 % (11.6-14.6)
[2019-12-13 20:44] LABS: CHLORIDE 105 mEq/L (98-107)
[2019-12-13] MEDS ORDERED: LEVETIRACETAM 500MG PREMIX 100 ML IV ONE (21:45)
[2019-12-14] VITALS (90 sets, daily range): BP systolic 46–189; BP diastolic 17–134
[2019-12-14 01:04] LABS: INR 1.3; PROTHROMBIN TIME 13.4 sec (9.6-11.0)
[2019-12-14] MEDS ORDERED: DEXT 5%/LACTATED RINGERS 1,000 ML IV NR (01:30)
[2019-12-14] MEDS: NICARDIPINE 100 MG in SODIUM CHLORIDE 0.9% 60 ML IV PRN ×2 (01:55→23:49)
[2019-12-14] MEDS ORDERED: ACETAMINOPHEN 650MG SUPP PR PRN (07:45)
[2019-12-14] MEDS ORDERED: DEXTROSE 50% WATER 50ML SYRINGE IV PRN (07:45)
[2019-12-14] MEDS ORDERED: ONDANSETRON HCL 4MG/2ML INJ IV PRN (07:45)
[2019-12-14] MEDS ORDERED: LEVETIRACETAM 250 MG in SODIUM CHLORIDE 0.9% 100 ML IV SCH (09:00)
[2019-12-14] MEDS: DEXT 5%/0.9% NACL 1,000 ML IV SCH (10:27)
[2019-12-14] MEDS: PANTOPRAZOLE SODIUM 40 MG/VIAL IV SCH (10:27)
[2019-12-14] MEDS ORDERED: LIDOCAINE HCL 1% 20ML VIAL (Pyxis) INJ ONE (10:51)
[2019-12-14] MEDS: INSULIN LISPRO 100 UNITS/ML SUBCUT SCH ×3 (12:00→21:47)
[2019-12-14 12:04] LABS: BASOPHILS % 0.9 % (0.0-2.0); EOSINOPHILS % 0.9 % (0.0-5.0); HEMATOCRIT. 37.5 % (42.0-52.0); HEMOGLOBIN. 12.6 g/dL (14.0-18.0); LYMPHOCYTES % 31.1 % (20.0-50.0); MEAN CORPUSCULAR HEMOGLOBIN 35.4 pg (28.0-32.0); MEAN CORPUSCULAR VOLUME 105.5 fL (80.0-94.0); MEAN PLATELET VOLUME 9.7 fl (7.4-10.4); MONOCYTES % 7.2 % (2.0-8.0); NEUTROPHILS % 59.9 % (40.0-76.0); PLATELET 174 x1000/uL (130-400); RED BLOOD CELL COUNT 3.56 mill/uL (4.7-6.1); RED CELL DISTRIBUTION WIDTH 15.8 % (11.6-14.6)
[2019-12-14] MEDS: BLOOD SUGAR DIAGNOSTIC STRIP TEST SCH ×3 (12:10→21:42)
[2019-12-14 12:28] LABS: PHOSPHORUS 3.5 mg/dL (2.5-4.9)
[2019-12-14] MEDS: LEVETIRACETAM 250 MG in SODIUM CHLORIDE 0.9% 100 ML IV SCH (21:48)
[2019-12-15] VITALS (60 sets, daily range): BP systolic 107–158; BP diastolic 50–110
[2019-12-15 05:01] LABS: BASOPHILS % 0.7 % (0.0-2.0); EOSINOPHILS % 0.8 % (0.0-5.0); HEMATOCRIT. 37.3 % (42.0-52.0); HEMOGLOBIN. 12.4 g/dL (14.0-18.0); LYMPHOCYTES % 22.7 % (20.0-50.0); MEAN CORPUSCULAR HEMOGLOBIN 35.8 pg (28.0-32.0); MEAN CORPUSCULAR VOLUME 107.5 fL (80.0-94.0); MEAN PLATELET VOLUME 9.6 fl (7.4-10.4); MONOCYTES % 7.5 % (2.0-8.0); NEUTROPHILS % 68.3 % (40.0-76.0); PLATELET 162 x1000/uL (130-400); RED BLOOD CELL COUNT 3.47 mill/uL (4.7-6.1); RED CELL DISTRIBUTION WIDTH 15.7 % (11.6-14.6)
[2019-12-15] MEDS: BLOOD SUGAR DIAGNOSTIC STRIP TEST SCH ×4 (06:01→20:59)
[2019-12-15] MEDS: INSULIN LISPRO 100 UNITS/ML SUBCUT SCH ×4 (06:06→20:58)
[2019-12-15] MEDS: DEXT 5%/0.9% NACL 1,000 ML IV SCH (06:06)
[2019-12-15] MEDS: LEVETIRACETAM 250 MG in SODIUM CHLORIDE 0.9% 100 ML IV SCH ×2 (08:27→23:09)
[2019-12-15] MEDS: PANTOPRAZOLE SODIUM 40 MG/VIAL IV SCH (08:28)
[2019-12-15] MEDS: NICARDIPINE 100 MG in SODIUM CHLORIDE 0.9% 60 ML IV PRN (08:28)
[2019-12-15] MEDS: NIFEDIPINE XL 60MG TAB PO SCH (11:48)
[2019-12-16] VITALS (21 sets, daily range): BP systolic 100–180; BP diastolic 55–92
[2019-12-16 05:20] LABS: BASOPHILS % 0.5 % (0.0-2.0); EOSINOPHILS % 0.7 % (0.0-5.0); HEMATOCRIT. 37.3 % (42.0-52.0); HEMOGLOBIN. 12.4 g/dL (14.0-18.0); LYMPHOCYTES % 21.5 % (20.0-50.0); MEAN CORPUSCULAR HEMOGLOBIN 35.4 pg (28.0-32.0); MEAN CORPUSCULAR VOLUME 106.5 fL (80.0-94.0); MEAN PLATELET VOLUME 9.5 fl (7.4-10.4); MONOCYTES % 7.1 % (2.0-8.0); NEUTROPHILS % 70.2 % (40.0-76.0); PLATELET 156 x1000/uL (130-400); RED BLOOD CELL COUNT 3.51 mill/uL (4.7-6.1); RED CELL DISTRIBUTION WIDTH 15.5 % (11.6-14.6)
[2019-12-16] MEDS ORDERED: ALTEPLASE 2MG/VIAL ITC NR (07:15)
[2019-12-16] MEDS: BLOOD SUGAR DIAGNOSTIC STRIP TEST SCH ×4 (07:30→21:00)
[2019-12-16] MEDS: INSULIN LISPRO 100 UNITS/ML SUBCUT SCH ×4 (08:00→21:00)
[2019-12-16] MEDS: NIFEDIPINE XL 60MG TAB PO SCH (09:00)
[2019-12-16] MEDS: LEVETIRACETAM 500MG TABLET PO SCH ×2 (09:00→21:21)
[2019-12-16] MEDS: PANTOPRAZOLE SODIUM 40 MG/VIAL IV SCH (09:00)
[2019-12-16] MEDS: LEVETIRACETAM 250 MG in SODIUM CHLORIDE 0.9% 100 ML IV SCH (09:00)
[2019-12-16] MEDS: DOCUSATE SODIUM 250MG CAPSULE PO SCH (09:00)
[2019-12-16] MEDS ORDERED: SODIUM BICARBONATE 4% (2.4MEQ) 5ML VIAL IV ONE (09:52)
[2019-12-16] MEDS ORDERED: IOHEXOL-300 100 ML BOTTLE ONE (09:53)
[2019-12-16] MEDS ORDERED: LIDOCAINE HCL 1% 20ML VIAL (Pyxis) INJ ONE (09:54)
[2019-12-16] MEDS ORDERED: HEPARIN 1000 UNITS/ML 10ML ONE (09:54)
[2019-12-16] MEDS ORDERED: FENTANYL CITRATE/PF 50MCG/ML 2ML VIAL ONE (10:34)
[2019-12-16] MEDS ORDERED: FENTANYL CITRATE/PF 50MCG/ML 2ML VIAL IV ONE (10:45)
[2019-12-16] MEDS: IPRATROPIUM/ALBUTEROL 0.5-3(2.5)MG/3ML NEB HHN SCH ×2 (13:34→21:04)
[2019-12-17] VITALS (9 sets, daily range): BP systolic 142–207; BP diastolic 55–103
[2019-12-17] MEDS: IPRATROPIUM/ALBUTEROL 0.5-3(2.5)MG/3ML NEB HHN SCH ×3 (01:22→15:25)
[2019-12-17] MEDS: MORPHINE SULFATE 2 MG/ML CPJ (NOT FOR IM USE) IV PRN ×2 (01:48→06:16)
[2019-12-17] MEDS: CLONIDINE 0.1MG TABLET PO PRN ×2 (06:15→13:45)
[2019-12-17] MEDS: INSULIN LISPRO 100 UNITS/ML SUBCUT SCH ×2 (08:00→12:13)
[2019-12-17] MEDS: BLOOD SUGAR DIAGNOSTIC STRIP TEST SCH ×3 (08:08→16:58)
[2019-12-17] MEDS ORDERED: DOXAZOSIN MESYLATE 4MG TABLET PO SCH (08:30)
[2019-12-17] MEDS ORDERED: FURO40TA5 PO (08:54)
[2019-12-17] MEDS ORDERED: CLON0.1T14 PO (08:54)
[2019-12-17] MEDS ORDERED: KEPP500 PO (08:54)
[2019-12-17] MEDS ORDERED: DOXA2TAB PO (08:54)
[2019-12-17] MEDS ORDERED: INSLIS SUBCUT (08:54)
[2019-12-17] MEDS ORDERED: IPRA3AMP9 HHN (08:54)
[2019-12-17] MEDS ORDERED: DOCU250C14 PO (08:54)
[2019-12-17] MEDS ORDERED: NIFE90TA60 PO (08:54)
[2019-12-17] MEDS ORDERED: LOSA100T3 PO (08:54)
[2019-12-17] MEDS ORDERED: FUROSEMIDE 40MG TABLET PO SCH (09:00)
[2019-12-17] MEDS ORDERED: LOSARTAN POTASSIUM 100 MG TABLET PO SCH (09:00)
[2019-12-17] MEDS ORDERED: NIFEDIPINE XL 90MG TAB PO SCH (09:00)
[2019-12-17] MEDS: LEVETIRACETAM 500MG TABLET PO SCH (09:23)
[2019-12-17] MEDS: DOCUSATE SODIUM 250MG CAPSULE PO SCH (09:24)
[2019-12-17] MEDS: PANTOPRAZOLE SODIUM 40 MG/VIAL IV SCH (09:24)
[2019-12-17] MEDS ORDERED: METOPROLOL TARTRATE 50MG TABLET PO SCH (14:30)
[2019-12-17] MEDS ORDERED: DOXAZOSIN MESYLATE 2MG TABLET PO SCH (21:00)
[2019-12-17] MEDS ORDERED: METOPROLOL TARTRATE 25MG TABLET PO SCH (21:00)
== END 2019-12-17 17:25 | DRG 252 ==
LOC: ER 19:28 → ENRESERV 23:05 → MICUNO 12-14 00:13 → EDBEDREQ 12-14 00:14 → EDBEDREQTM 12-14 00:18 → 5EST 12-15 13:53
PROVIDERS: ADMIT Internal Medicine Geriatric Medicine; ATTEND Internal Medicine Geriatric Medicine
PROC: 037Y3ZZ Dilation of Upper Artery, Percutaneous Approach (ICD-10-PCS; principal; 2019-12-14)
PROC: B3111ZZ Fluoroscopy of Right Brachiocephalic-Subclavian Artery using Low Osmolar Contrast (ICD-10-PCS; 2019-12-14)
PROC: B5161ZZ Fluoroscopy of Right Subclavian Vein using Low Osmolar Contrast (ICD-10-PCS; 2019-12-14)
PROC: 06HY33Z Insertion of Infusion Device into Lower Vein, Percutaneous Approach (ICD-10-PCS; 2019-12-14)
PROC: B54BZZA Ultrasonography of Right Lower Extremity Veins, Guidance (ICD-10-PCS; 2019-12-14)
PROC: 5A1D70Z Performance of Urinary Filtration, Intermittent, Less than 6 Hours Per Day (ICD-10-PCS; 2019-12-15)
DX: T82.858A Stenosis of other vascular prosthetic devices, implants and grafts, initial encounter (principal); N18.6 End stage renal disease; I62.9 Nontraumatic intracranial hemorrhage, unspecified; I16.1 Hypertensive emergency; E44.0 Moderate protein-calorie malnutrition; Z68.1 Body mass index [BMI] 19.9 or less, adult; I82.622 Acute embolism and thrombosis of deep veins of left upper extremity; I12.0 Hypertensive chronic kidney disease with stage 5 chronic kidney disease or end stage renal disease; D72.819 Decreased white blood cell count, unspecified; D63.8 Anemia in other chronic diseases classified elsewhere; R74.01 Elevation of levels of liver transaminase levels; F03.90 Unspecified dementia, unspecified severity, without behavioral disturbance, psychotic disturbance, mood disturbance, and anxiety; D64.9 Anemia, unspecified; G40.909 Epilepsy, unspecified, not intractable, without status epilepticus; M19.90 Unspecified osteoarthritis, unspecified site; J44.9 Chronic obstructive pulmonary disease, unspecified; Z22.322 Carrier or suspected carrier of Methicillin resistant Staphylococcus aureus; Z90.89 Acquired absence of other organs; Z99.2 Dependence on renal dialysis; Z90.49 Acquired absence of other specified parts of digestive tract; Z79.4 Long term (current) use of insulin; Z86.73 Personal history of transient ischemic attack (TIA), and cerebral infarction without residual deficits; Z79.899 Other long term (current) drug therapy; E11.22 Type 2 diabetes mellitus with diabetic chronic kidney disease
CPT/HCPCS: 36415; 36901; 36902; 70551; 71045; 76937; 80048; 80053; 82962; 83036; 83735; 84100; 85025; 86850; 86900; 92610; 93005; 93970; 94640; 97162; 97166; 99291; C1725; C1766; C1769; C1887; C9113; J1644; J1815; J1953; J2270; J2997; J3010; J3490; J7042; J7050; Q9967

== ENCOUNTER 2019-12-20 18:41 | Inpatient (IN) | payer MEDICARE, MEDICAID ==
[~2019-12-20] VITALS: Ht 185.4 cm; Wt 69.4 kg
[~2019-12-20 18:41] MED LIST changes: -CITA10TA9 PO; -CLON-457 PO; +CLON0.1T14 PO; +DOCU250C14 PO; -DOCU250C69 PO; +DOXA2TAB PO; +FURO40TA5 PO; +IPRA3AMP9 HHN; +KEPP500 PO; -LORA-249 PO; +LOSA100T3 PO; -LOSA50TA41 PO; -MEMA10TA2 PO; -METO25TA6 MT; -MONT10TA26 PO; -TOPUD PO
[2019-12-21] MEDS ORDERED: CLONIDINE 0.2MG TABLET PO ONE (03:00)
[2019-12-21] MEDS ORDERED: CLONIDINE 0.1MG TABLET PO ONE (03:00)
[2019-12-21] MEDS ORDERED: VANCOMYCIN 1 G PREMIX 200 ML IV ONE (03:30)
[2019-12-21] MEDS ORDERED: PIPERACILLIN/TAZ 3.375G PREMIX 50 ML IV ONE (03:30)
[2019-12-21 03:39] LABS: BASOPHILS % 0.8 % (0.0-2.0); EOSINOPHILS % 0.3 % (0.0-5.0); HEMATOCRIT. 36.7 % (42.0-52.0); HEMOGLOBIN. 12.2 g/dL (14.0-18.0); LYMPHOCYTES % 29.1 % (20.0-50.0); MEAN CORPUSCULAR HEMOGLOBIN 35.4 pg (28.0-32.0); MEAN CORPUSCULAR VOLUME 106.3 fL (80.0-94.0); MEAN PLATELET VOLUME 9.8 fl (7.4-10.4); MONOCYTES % 9.3 % (2.0-8.0); NEUTROPHILS % 60.5 % (40.0-76.0); PLATELET 139 x1000/uL (130-400); RED BLOOD CELL COUNT 3.45 mill/uL (4.7-6.1); RED CELL DISTRIBUTION WIDTH 15.1 % (11.6-14.6)
[2019-12-21 04:04] LABS: CHLORIDE 101 mEq/L (98-107)
[2019-12-21 08:00] VITALS: BP 159/86
[2019-12-21] MEDS ORDERED: ONDANSETRON HCL 4MG/2ML INJ IV PRN (11:30)
[2019-12-21] MEDS ORDERED: ACETAMINOPHEN 325MG TABLET PO PRN (11:30)
[2019-12-21 12:00] VITALS: BP 162/97
[2019-12-21] MEDS ORDERED: METO100T16 MT (12:05)
[2019-12-21] MEDS ORDERED: CITA10TA9 MT (12:36)
[2019-12-21] MEDS ORDERED: BICA50TA48 MT (12:36)
[2019-12-21] MEDS ORDERED: MEMA5TAB7 MT (12:37)
[2019-12-21] MEDS ORDERED: DEXTROSE 50% WATER 50ML SYRINGE IV PRN (12:45)
[2019-12-21] MEDS: FAMOTIDINE 20MG TABLET PO SCH (13:20)
[2019-12-21] MEDS: HEPARIN 5000 UNITS/ML VIAL SUBCUT SCH ×2 (13:20→21:08)
[2019-12-21] MEDS: CLONIDINE 0.1MG TABLET PO PRN ×2 (13:20→22:59)
[2019-12-21] MEDS: CITALOPRAM HYDROBROMIDE 10MG TABLET PO SCH (13:20)
[2019-12-21 14:25] VITALS: BP_SYST 206
[2019-12-21] MEDS ORDERED: BICALUTAMIDE 50 MG TABLET PO SCH (15:00)
[2019-12-21 16:00] VITALS: BP 92/47
[2019-12-21] MEDS: BLOOD SUGAR DIAGNOSTIC STRIP TEST SCH ×2 (16:50→21:00)
[2019-12-21] MEDS: INSULIN LISPRO 100 UNITS/ML SUBCUT SCH ×2 (16:51→21:00)
[2019-12-21] MEDS: NIFEDIPINE XL 90MG TAB PO SCH (18:13)
[2019-12-21] MEDS: LOSARTAN POTASSIUM 100 MG TABLET PO SCH (18:18)
[2019-12-21 20:00] VITALS: BP 172/98
[2019-12-21] MEDS ORDERED: INFLUENZA VACCINE 05/PF 0.5 ML VIAL IM ONE (20:00)
[2019-12-21] MEDS ORDERED: PNEUMOCOCCAL 23-VAL P-SAC VAC 0.5 ML IM ONE (20:00)
[2019-12-21] MEDS: MEMANTINE HCL 5MG TABLET PO SCH (21:08)
[2019-12-21] MEDS: LEVETIRACETAM 500MG TABLET PO SCH (21:08)
[2019-12-21] MEDS: METOPROLOL TARTRATE 100MG TABLET PO SCH (21:09)
[2019-12-21] MEDS: BICALUTAMIDE 50 MG TABLET PO SCH (21:10)
[2019-12-21 22:35] VITALS: BP 144/112
[2019-12-22 00:05] VITALS: BP 149/95
[2019-12-22 04:00] VITALS: BP 125/72
[2019-12-22] MEDS: BLOOD SUGAR DIAGNOSTIC STRIP TEST SCH ×4 (06:31→20:30)
[2019-12-22] MEDS: INSULIN LISPRO 100 UNITS/ML SUBCUT SCH ×4 (07:21→21:40)
[2019-12-22 08:00] VITALS: BP 138/116
[2019-12-22] MEDS ORDERED: PNEUMOCOCCAL 23-VAL P-SAC VAC 0.5 ML IM ONE (09:00)
[2019-12-22] MEDS ORDERED: INFLUENZA VACCINE 05/PF 0.5 ML VIAL IM ONE (09:00)
[2019-12-22] MEDS: LEVETIRACETAM 500MG TABLET PO SCH ×2 (09:25→21:28)
[2019-12-22] MEDS: CITALOPRAM HYDROBROMIDE 10MG TABLET PO SCH (09:25)
[2019-12-22] MEDS: BICALUTAMIDE 50 MG TABLET PO SCH (09:25)
[2019-12-22] MEDS: MEMANTINE HCL 5MG TABLET PO SCH ×2 (09:26→21:38)
[2019-12-22] MEDS: LOSARTAN POTASSIUM 100 MG TABLET PO SCH (09:26)
[2019-12-22] MEDS: FAMOTIDINE 20MG TABLET PO SCH (09:26)
[2019-12-22] MEDS: METOPROLOL TARTRATE 100MG TABLET PO SCH ×2 (09:26→21:38)
[2019-12-22] MEDS: HEPARIN 5000 UNITS/ML VIAL SUBCUT SCH ×2 (09:27→21:37)
[2019-12-22] MEDS: NIFEDIPINE XL 90MG TAB PO SCH (09:27)
[2019-12-22 10:29] LABS: BASOPHILS % 0.9 % (0.0-2.0); EOSINOPHILS % 1.1 % (0.0-5.0); HEMATOCRIT. 32.5 % (42.0-52.0); HEMOGLOBIN. 10.7 g/dL (14.0-18.0); LYMPHOCYTES % 33.3 % (20.0-50.0); MEAN CORPUSCULAR HEMOGLOBIN 34.5 pg (28.0-32.0); MEAN CORPUSCULAR VOLUME 105.3 fL (80.0-94.0); MEAN PLATELET VOLUME 9.8 fl (7.4-10.4); MONOCYTES % 13.6 % (2.0-8.0); NEUTROPHILS % 51.1 % (40.0-76.0); PLATELET 145 x1000/uL (130-400); RED BLOOD CELL COUNT 3.09 mill/uL (4.7-6.1); RED CELL DISTRIBUTION WIDTH 14.8 % (11.6-14.6)
[2019-12-22 11:19] VITALS: BP 137/78
[2019-12-22 15:27] VITALS: BP 122/69
[2019-12-22 20:00] VITALS: BP 126/69
[2019-12-23] VITALS: BP_SYST 128; BP_SYST 138; BP_DIAS 108; BP_DIAS 98
[2019-12-23 04:00] VITALS: BP 113/67
[2019-12-23] MEDS: BLOOD SUGAR DIAGNOSTIC STRIP TEST SCH ×4 (06:27→20:20)
[2019-12-23 06:47] LABS: BASOPHILS % 0.7 % (0.0-2.0); EOSINOPHILS % 0.8 % (0.0-5.0); HEMATOCRIT. 31.3 % (42.0-52.0); HEMOGLOBIN. 10.4 g/dL (14.0-18.0); LYMPHOCYTES % 34.4 % (20.0-50.0); MEAN CORPUSCULAR HEMOGLOBIN 34.8 pg (28.0-32.0); MEAN CORPUSCULAR VOLUME 104.6 fL (80.0-94.0); MEAN PLATELET VOLUME 10.7 fl (7.4-10.4); MONOCYTES % 14.7 % (2.0-8.0); NEUTROPHILS % 49.4 % (40.0-76.0); PLATELET 152 x1000/uL (130-400); RED BLOOD CELL COUNT 2.99 mill/uL (4.7-6.1); RED CELL DISTRIBUTION WIDTH 14.9 % (11.6-14.6)
[2019-12-23] MEDS: INSULIN LISPRO 100 UNITS/ML SUBCUT SCH ×4 (07:50→21:00)
[2019-12-23 08:00] VITALS: BP 132/76
[2019-12-23] MEDS: METOPROLOL TARTRATE 100MG TABLET PO SCH ×2 (09:00→20:52)
[2019-12-23] MEDS: NIFEDIPINE XL 90MG TAB PO SCH (09:00)
[2019-12-23] MEDS: LOSARTAN POTASSIUM 100 MG TABLET PO SCH (09:00)
[2019-12-23] MEDS: HEPARIN 5000 UNITS/ML VIAL SUBCUT SCH ×2 (09:13→20:51)
[2019-12-23] MEDS: LEVETIRACETAM 500MG TABLET PO SCH ×2 (09:16→20:52)
[2019-12-23] MEDS: BICALUTAMIDE 50 MG TABLET PO SCH (09:16)
[2019-12-23] MEDS: CITALOPRAM HYDROBROMIDE 10MG TABLET PO SCH (09:16)
[2019-12-23] MEDS: MEMANTINE HCL 5MG TABLET PO SCH ×2 (09:16→20:52)
[2019-12-23] MEDS: FAMOTIDINE 20MG TABLET PO SCH (09:16)
[2019-12-23 12:00] VITALS: BP 171/99
[2019-12-23] MEDS: IPRATROPIUM/ALBUTEROL 0.5-3(2.5)MG/3ML NEB NEB PRN ×2 (13:28→21:29)
[2019-12-23 16:00] VITALS: BP 155/71
[2019-12-23 20:26] VITALS: BP 152/81
[2019-12-24 00:09] VITALS: BP 145/88
[2019-12-24 04:00] VITALS: BP 171/93
[2019-12-24] MEDS: CLONIDINE 0.1MG TABLET PO PRN ×2 (05:09→14:26)
[2019-12-24] MEDS: BLOOD SUGAR DIAGNOSTIC STRIP TEST SCH ×2 (06:58→12:54)
[2019-12-24] MEDS: INSULIN LISPRO 100 UNITS/ML SUBCUT SCH ×2 (07:50→12:50)
[2019-12-24 08:00] VITALS: BP 174/97
[2019-12-24] MEDS: FAMOTIDINE 20MG TABLET PO SCH (09:42)
[2019-12-24] MEDS: NIFEDIPINE XL 90MG TAB PO SCH (09:42)
[2019-12-24] MEDS: BICALUTAMIDE 50 MG TABLET PO SCH (09:42)
[2019-12-24] MEDS: METOPROLOL TARTRATE 100MG TABLET PO SCH (09:42)
[2019-12-24] MEDS: LEVETIRACETAM 500MG TABLET PO SCH (09:42)
[2019-12-24] MEDS: LOSARTAN POTASSIUM 100 MG TABLET PO SCH (09:43)
[2019-12-24] MEDS: MEMANTINE HCL 5MG TABLET PO SCH (09:43)
[2019-12-24] MEDS: HEPARIN 5000 UNITS/ML VIAL SUBCUT SCH (09:43)
[2019-12-24] MEDS: CITALOPRAM HYDROBROMIDE 10MG TABLET PO SCH (09:43)
[2019-12-24 11:59] VITALS: BP 150/93
== END 2019-12-24 16:10 | DRG 291 ==
LOC: ER 18:41 → 7EST 12-21 05:32 → ENRESERV 12-21 07:17 → 6WST 12-21 22:46
PROVIDERS: ADMIT Internal Medicine Nephrology; ATTEND Internal Medicine Nephrology
PROC: 5A1D70Z Performance of Urinary Filtration, Intermittent, Less than 6 Hours Per Day (ICD-10-PCS; principal; 2019-12-23)
DX: I13.2 Hypertensive heart and chronic kidney disease with heart failure and with stage 5 chronic kidney disease, or end stage renal disease (principal); N18.6 End stage renal disease; I16.0 Hypertensive urgency; G40.909 Epilepsy, unspecified, not intractable, without status epilepticus; F01.50 Vascular dementia, unspecified severity, without behavioral disturbance, psychotic disturbance, mood disturbance, and anxiety; I50.9 Heart failure, unspecified; D63.1 Anemia in chronic kidney disease; R91.8 Other nonspecific abnormal finding of lung field; M19.90 Unspecified osteoarthritis, unspecified site; E11.22 Type 2 diabetes mellitus with diabetic chronic kidney disease; Z90.49 Acquired absence of other specified parts of digestive tract; Z99.2 Dependence on renal dialysis; Z86.73 Personal history of transient ischemic attack (TIA), and cerebral infarction without residual deficits; Z79.899 Other long term (current) drug therapy; Z22.322 Carrier or suspected carrier of Methicillin resistant Staphylococcus aureus; R60.0 Localized edema
CPT/HCPCS: 36415; 71045; 80048; 80053; 82962; 83036; 83605; 84484; 85025; 90686; 90732; 93005; 97162; 99285; J1644; J1815; J2543; J3370; U0003-CS

== ENCOUNTER 2020-04-21 19:17 | Inpatient (IN) | payer MEDICARE, MEDICAID ==
[~2020-04-21] VITALS: Ht 157.5 cm; Wt 53.2 kg
[~2020-04-21 19:17] MED LIST changes: +BICA50TA48 MT; -CHOL400D16 PO; +CHOL400D7 PO; +CITA10TA9 MT; +MEMA5TAB7 MT; +METO100T16 MT
[2020-04-21] MEDS ORDERED: SODIUM CHLORIDE 0.9% 1,000 ML IV ONE (20:15)
[2020-04-21 20:28] LABS: BASOPHILS % 0.9 % (0.0-2.0); EOSINOPHILS % 0.6 % (0.0-5.0); HEMOGLOBIN. 7.1 g/dL (14.0-18.0); LYMPHOCYTES % 11.5 % (20.0-50.0); MEAN CORPUSCULAR HEMOGLOBIN 34.5 pg (28.0-32.0); MEAN CORPUSCULAR VOLUME 101.1 fL (80.0-94.0); MEAN PLATELET VOLUME 8.8 fl (7.4-10.4); MONOCYTES % 8.5 % (2.0-8.0); NEUTROPHILS % 78.5 % (40.0-76.0); PLATELET 341 x1000/uL (130-400); RED BLOOD CELL COUNT 2.04 mill/uL (4.7-6.1); RED CELL DISTRIBUTION WIDTH 15.3 % (11.6-14.6)
[2020-04-21 20:32] LABS: HEMATOCRIT. 20.7 % (42.0-52.0)
[2020-04-21 20:33] LABS: CHLORIDE 100 mEq/L (98-107)
[2020-04-21 20:37] LABS: INR 1.2; PROTHROMBIN TIME 12.6 sec (9.6-11.0)
[2020-04-21] MEDS ORDERED: PIPERACILLIN/TAZ 3.375G PREMIX 50 ML IV ONE (21:45)
[2020-04-21] MEDS ORDERED: VANCOMYCIN 1 G PREMIX 200 ML IV ONE (21:45)
[2020-04-21] MEDS ORDERED: CLONIDINE 0.1MG TABLET PO PRN (22:45)
[2020-04-21] MEDS ORDERED: ONDANSETRON HCL 4MG/2ML INJ IV PRN (22:45)
[2020-04-21] MEDS ORDERED: MAGNESIUM/ALUMINUM HYDROXIDE/SIMETHICONE 30ML UDC PO PRN (22:45)
[2020-04-21] MEDS ORDERED: ACETAMINOPHEN 650MG/20.3ML UDC GT PRN (22:45)
[2020-04-21] MEDS ORDERED: DEXTROSE 50% WATER 50ML SYRINGE IV PRN ×2 (23:00)
[2020-04-21 23:15] LABS: TOTAL IRON BINDING CAPACITY 118 ug/dL (250-450)
[2020-04-21] MEDS ORDERED: ERGOCALCIFEROL 50000UNITS CAPSULE GT SCH (23:30)
[2020-04-21] MEDS ORDERED: ASPIRIN 325MG EC TABLET PO ONE (23:30)
[2020-04-21] MEDS ORDERED: ENOXAPARIN 40MG/0.4ML SYR SUBCUT SCH (23:30)
[2020-04-21] MEDS ORDERED: DEXAMETHASONE 10 MG/ML VIAL IV ONE (23:30)
[2020-04-21 23:55] LABS: VITAMIN B12 SERUM 1607 pg/mL (211-911)
[2020-04-22 06:16] LABS: HEMATOCRIT. 26.8 % (42.0-52.0); HEMOGLOBIN. 8.9 g/dL (14.0-18.0); MEAN CORPUSCULAR HEMOGLOBIN 32.9 pg (28.0-32.0); MEAN CORPUSCULAR VOLUME 99.4 fL (80.0-94.0); MEAN PLATELET VOLUME 8.9 fl (7.4-10.4); PLATELET 367 x1000/uL (130-400); RED CELL DISTRIBUTION WIDTH 16.7 % (11.6-14.6)
[2020-04-22 06:24] LABS: CHLORIDE 100 mEq/L (98-107)
[2020-04-22 06:32] LABS: LDL CHOLESTEROL 74 mg/dL (5-100)
[2020-04-22 06:33] LABS: HDL CHOLESTEROL 20 mg/dL (40-59)
[2020-04-22 07:47] LABS: PLATELET ESTIMATE NORMAL
[2020-04-22] MEDS: BLOOD SUGAR DIAGNOSTIC STRIP TEST SCH ×4 (08:33→21:59)
[2020-04-22] MEDS ORDERED: BICALUTAMIDE 50 MG TABLET PO SCH (09:00)
[2020-04-22] MEDS ORDERED: SODIUM BICARBONATE 4% (2.4MEQ) 5ML VIAL IV ONE (09:10)
[2020-04-22] MEDS ORDERED: LIDOCAINE HCL 1% 20ML VIAL (Pyxis) INJ ONE (09:10)
[2020-04-22] MEDS: FAMOTIDINE 20MG TABLET GT SCH (09:29)
[2020-04-22] MEDS: LEVETIRACETAM 500MG TABLET PO SCH ×2 (09:30→21:58)
[2020-04-22] MEDS: DOCUSATE SODIUM 100MG CAPSULE PO SCH ×2 (09:30→17:58)
[2020-04-22 10:00] VITALS: BP_SYST 91; BP_SYST 92; BP_DIAS 49
[2020-04-22] MEDS: SEVELAMER CARBONATE 800 MG TABLET PO SCH ×2 (12:38→17:58)
[2020-04-22] MEDS: MIDODRINE HCL 2.5MG TABLET GT SCH ×3 (12:38→21:57)
[2020-04-22] MEDS: INSULIN LISPRO 100 UNITS/ML SUBCUT SCH ×3 (12:39→21:00)
[2020-04-22 16:00] VITALS: BP 163/88
[2020-04-22 20:00] VITALS: BP 164/89
[2020-04-22] MEDS: EPOETIN ALFA-EPBX 10,000 UNIT/ML VIAL SUBCUT SCH (21:58)
[2020-04-22] MEDS: ENOXAPARIN 30MG/0.3ML SYR SUBCUT SCH (22:03)
[2020-04-23] VITALS (11 sets, daily range): BP systolic 100–138; BP diastolic 54–84
[2020-04-23] MEDS: BLOOD SUGAR DIAGNOSTIC STRIP TEST SCH ×4 (06:19→21:03)
[2020-04-23] MEDS: MIDODRINE HCL 2.5MG TABLET GT SCH ×3 (06:19→20:54)
[2020-04-23 06:52] LABS: BASOPHILS % 0.3 % (0.0-2.0); EOSINOPHILS % 0.3 % (0.0-5.0); HEMATOCRIT. 22.7 % (42.0-52.0); HEMOGLOBIN. 7.9 g/dL (14.0-18.0); LYMPHOCYTES % 10.3 % (20.0-50.0); MEAN CORPUSCULAR HEMOGLOBIN 34.1 pg (28.0-32.0); MEAN CORPUSCULAR VOLUME 98.2 fL (80.0-94.0); MEAN PLATELET VOLUME 9.4 fl (7.4-10.4); MONOCYTES % 6.6 % (2.0-8.0); NEUTROPHILS % 82.5 % (40.0-76.0); PLATELET 366 x1000/uL (130-400); RED BLOOD CELL COUNT 2.31 mill/uL (4.7-6.1); RED CELL DISTRIBUTION WIDTH 16.2 % (11.6-14.6)
[2020-04-23] MEDS: INSULIN LISPRO 100 UNITS/ML SUBCUT SCH ×4 (07:13→21:19)
[2020-04-23] MEDS: DOCUSATE SODIUM 100MG CAPSULE PO SCH ×2 (10:50→18:29)
[2020-04-23] MEDS: SEVELAMER CARBONATE 800 MG TABLET PO SCH ×3 (10:50→18:29)
[2020-04-23] MEDS: LEVETIRACETAM 500MG TABLET PO SCH ×2 (10:50→20:54)
[2020-04-23] MEDS: FAMOTIDINE 20MG TABLET GT SCH (10:51)
[2020-04-23] MEDS: BICALUTAMIDE 50 MG TABLET PO SCH (13:17)
[2020-04-23] MEDS: ENOXAPARIN 30MG/0.3ML SYR SUBCUT SCH (20:55)
[2020-04-24] VITALS: BP 109/65
[2020-04-24 04:00] VITALS: BP 100/54
[2020-04-24] MEDS: MIDODRINE HCL 2.5MG TABLET GT SCH ×3 (05:07→21:54)
[2020-04-24] MEDS: BLOOD SUGAR DIAGNOSTIC STRIP TEST SCH ×4 (05:44→21:54)
[2020-04-24] MEDS: INSULIN LISPRO 100 UNITS/ML SUBCUT SCH ×4 (05:45→21:55)
[2020-04-24 07:13] LABS: HEMATOCRIT. 26.1 % (42.0-52.0); HEMOGLOBIN. 8.9 g/dL (14.0-18.0); MEAN CORPUSCULAR HEMOGLOBIN 33.7 pg (28.0-32.0); MEAN CORPUSCULAR VOLUME 98.3 fL (80.0-94.0); MEAN PLATELET VOLUME 9.1 fl (7.4-10.4); PLATELET 343 x1000/uL (130-400); RED BLOOD CELL COUNT 2.65 mill/uL (4.7-6.1); RED CELL DISTRIBUTION WIDTH 16.4 % (11.6-14.6)
[2020-04-24 08:00] VITALS: BP 116/80
[2020-04-24] MEDS: FAMOTIDINE 20MG TABLET GT SCH (09:18)
[2020-04-24] MEDS: LEVETIRACETAM 500MG TABLET PO SCH ×2 (09:18→21:54)
[2020-04-24] MEDS: SEVELAMER CARBONATE 800 MG TABLET PO SCH ×3 (09:18→18:13)
[2020-04-24] MEDS: DOCUSATE SODIUM 100MG CAPSULE PO SCH ×2 (09:19→18:13)
[2020-04-24] MEDS: BICALUTAMIDE 50 MG TABLET PO SCH (09:20)
[2020-04-24 12:00] VITALS: BP 125/68
[2020-04-24 16:00] VITALS: BP 115/71
[2020-04-24 20:00] VITALS: BP 101/65
[2020-04-24] MEDS: ENOXAPARIN 30MG/0.3ML SYR SUBCUT SCH (21:53)
[2020-04-24] MEDS: EPOETIN ALFA-EPBX 10,000 UNIT/ML VIAL SUBCUT SCH (21:54)
[2020-04-25] VITALS: BP 108/60
[2020-04-25 04:00] VITALS: BP 111/66
[2020-04-25] MEDS: MIDODRINE HCL 2.5MG TABLET GT SCH (06:29)
[2020-04-25] MEDS: BLOOD SUGAR DIAGNOSTIC STRIP TEST SCH ×2 (06:30→12:36)
[2020-04-25] MEDS: INSULIN LISPRO 100 UNITS/ML SUBCUT SCH ×2 (06:30→13:14)
[2020-04-25 08:00] VITALS: BP 127/79
[2020-04-25] MEDS: DOCUSATE SODIUM 100MG CAPSULE PO SCH (08:27)
[2020-04-25] MEDS: FAMOTIDINE 20MG TABLET GT SCH (08:27)
[2020-04-25] MEDS: SEVELAMER CARBONATE 800 MG TABLET PO SCH ×2 (08:27→12:33)
[2020-04-25] MEDS: LEVETIRACETAM 500MG TABLET PO SCH (08:27)
[2020-04-25] MEDS: BICALUTAMIDE 50 MG TABLET PO SCH ×3 (08:28→12:35)
[2020-04-25 12:54] VITALS: BP 121/77
[2020-04-25 14:09] VITALS: BP 121/77
[2020-04-25 16:13] LABS: NUCLEATED RED BLOOD CELLS 1 /100 WBC
[2020-04-25 16:14] LABS: PLATELET ESTIMATE NORMAL
[2020-04-25 16:20] LABS: BASOPHILS % 0.4 % (0.0-2.0); EOSINOPHILS % 0.3 % (0.0-5.0); HEMATOCRIT. 26.1 % (42.0-52.0); HEMOGLOBIN. 8.8 g/dL (14.0-18.0); MEAN PLATELET VOLUME 9.2 fl (7.4-10.4); MONOCYTES % 4.3 % (2.0-8.0); PLATELET 355 x1000/uL (130-400); RED BLOOD CELL COUNT 2.66 mill/uL (4.7-6.1); RED CELL DISTRIBUTION WIDTH 16.3 % (11.6-14.6)
== END 2020-04-25 16:10 | DRG 811 ==
LOC: ER 19:17 → 7WST 21:41 → ENRESERV 04-22 09:08 → 8WST 04-23 09:15
PROVIDERS: ADMIT Internal Medicine Geriatric Medicine; ATTEND Internal Medicine Geriatric Medicine
PROC: 30233N1 Transfusion of Nonautologous Red Blood Cells into Peripheral Vein, Percutaneous Approach (ICD-10-PCS; principal; 2020-04-21)
PROC: 0JPT3XZ Removal of Tunneled Vascular Access Device from Trunk Subcutaneous Tissue and Fascia, Percutaneous Approach (ICD-10-PCS; 2020-04-22)
PROC: 5A1D70Z Performance of Urinary Filtration, Intermittent, Less than 6 Hours Per Day (ICD-10-PCS; 2020-04-22)
PROC: 5A1D70Z Performance of Urinary Filtration, Intermittent, Less than 6 Hours Per Day (ICD-10-PCS; 2020-04-24)
DX: D64.9 Anemia, unspecified (principal); G93.41 Metabolic encephalopathy; N18.6 End stage renal disease; E43 Unspecified severe protein-calorie malnutrition; I13.2 Hypertensive heart and chronic kidney disease with heart failure and with stage 5 chronic kidney disease, or end stage renal disease; E11.22 Type 2 diabetes mellitus with diabetic chronic kidney disease; E11.43 Type 2 diabetes mellitus with diabetic autonomic (poly)neuropathy; F03.90 Unspecified dementia, unspecified severity, without behavioral disturbance, psychotic disturbance, mood disturbance, and anxiety; I27.20 Pulmonary hypertension, unspecified; I50.9 Heart failure, unspecified; L89.90 Pressure ulcer of unspecified site, unspecified stage; M81.0 Age-related osteoporosis without current pathological fracture; Z20.822 Contact with and (suspected) exposure to COVID-19; Z86.16 Personal history of COVID-19; J44.9 Chronic obstructive pulmonary disease, unspecified; R62.7 Adult failure to thrive; R13.10 Dysphagia, unspecified; K31.84 Gastroparesis; I95.9 Hypotension, unspecified; Z86.73 Personal history of transient ischemic attack (TIA), and cerebral infarction without residual deficits; I25.2 Old myocardial infarction; Z93.1 Gastrostomy status; Z87.01 Personal history of pneumonia (recurrent); Z99.2 Dependence on renal dialysis; Z85.46 Personal history of malignant neoplasm of prostate; Z90.49 Acquired absence of other specified parts of digestive tract; Z68.21 Body mass index [BMI] 21.0-21.9, adult
CPT/HCPCS: 36415; 36589; 71045; 80048; 80053; 80061; 82607; 82962; 83036; 83540; 83550; 83605; 83880; 84484; 85025; 86850; 86900; 86920; 93005; 99285; J0885; J1100; J1650; J1815; J2543; J3370; J3490; J7030; J7040; P9016; U0003

== ENCOUNTER 2020-05-15 09:02 | Inpatient (IN) | payer MEDICARE, MEDICAID ==
[~2020-05-15] VITALS: Ht 172.7 cm; Wt 68.0 kg
[2020-05-15 10:58] LABS: BASOPHILS % 0.5 % (0.0-2.0); EOSINOPHILS % 0.6 % (0.0-5.0); LYMPHOCYTES % 8.5 % (20.0-50.0); MEAN CORPUSCULAR VOLUME 97.8 fL (80.0-94.0); MEAN PLATELET VOLUME 9.1 fl (7.4-10.4); MONOCYTES % 4.3 % (2.0-8.0); NEUTROPHILS % 86.1 % (40.0-76.0); PLATELET 335 x1000/uL (130-400); RED BLOOD CELL COUNT 2.09 mill/uL (4.7-6.1); RED CELL DISTRIBUTION WIDTH 16.3 % (11.6-14.6)
[2020-05-15 11:04] LABS: CHLORIDE 97 mEq/L (98-107)
[2020-05-15 11:05] LABS: INR 1.2; PROTHROMBIN TIME 12.7 sec (9.6-11.0)
[2020-05-15 11:09] LABS: HEMATOCRIT. 20.4 % (42.0-52.0); HEMOGLOBIN. 6.7 g/dL (14.0-18.0)
[2020-05-15 11:11] LABS: TOTAL IRON BINDING CAPACITY 162 ug/dL (250-450)
[2020-05-15 12:02] LABS: BG BASE EXCESS 2.9 mmol/L (-2.0-2.0); BG CARBOXYHEMOGLOBIN 0.4 % (0.5-1.5); BG DEOXYHEMOGLOBIN 8.1 % (0.0-5.0); BG FRACTION INSPIRED OXYGEN 21; BG HCO3 ACT 26.9 mmol/L (22.0-26.0); BG METHEMOGLOBIN 0.2 % (0.0-1.5); BG OXYGEN SATURATION 91.9 % (92.0-98.5); BG OXYHEMOGLOBIN 91.3 % (94.0-97.0); BG PCO2 38.8 mmHg (35.0-45.0); BG PH 7.459 (7.350-7.450); BG PO2 62.9 mmHg (75.0-100.0); BG SAMPLE SITE LEFT RADIAL; BG TOTAL HEMOGLOBIN 7.3 g/dL (12.0-18.0); BG VENT MODE ROOM AIR
[2020-05-15] MEDS ORDERED: ONDANSETRON HCL 4MG/2ML INJ IV PRN (13:15)
[2020-05-15] MEDS ORDERED: MAGNESIUM/ALUMINUM HYDROXIDE/SIMETHICONE 30ML UDC PO PRN (13:15)
[2020-05-15] MEDS ORDERED: CLONIDINE 0.1MG TABLET PO PRN (13:15)
[2020-05-15 16:00] VITALS: BP 132/62
[2020-05-15 16:21] VITALS: BP 132/62
[2020-05-15] MEDS: DOCUSATE SODIUM SUGAR FREE 100MG/10ML UDC GT SCH (17:29)
[2020-05-15] MEDS: SENNOSIDES/DOCUSATE SOD 8.6/50MG TABLET GT SCH (17:30)
[2020-05-15] MEDS: LEVETIRACETAM 500MG/5ML CUP PO SCH (17:30)
[2020-05-15] MEDS ORDERED: LEVETIRACETAM 100MG/ML ORAL SYR GT ONE (18:00)
[2020-05-15] MEDS: IPRATROPIUM/ALBUTEROL 0.5-3(2.5)MG/3ML NEB HHN SCH (19:51)
[2020-05-15 20:00] VITALS: BP 134/64
[2020-05-15] MEDS ORDERED: DEXTROSE 50% WATER 50ML SYRINGE IV PRN (20:00)
[2020-05-15] MEDS: BLOOD SUGAR DIAGNOSTIC STRIP TEST SCH (21:00)
[2020-05-15 21:15] LABS: HEMOGLOBIN 7.4 g/dL (14.0-18.0)
[2020-05-15 21:23] LABS: HEMATOCRIT 20.8 % (42.0-52.0)
[2020-05-15] MEDS: HYDRALAZINE HCL 50MG TABLET GT SCH (22:00)
[2020-05-15] MEDS: INSULIN LISPRO 100 UNITS/ML SUBCUT SCH (22:48)
[2020-05-16] VITALS (11 sets, daily range): BP systolic 108–141; BP diastolic 53–76
[2020-05-16] MEDS: FAMOTIDINE 20MG TABLET GT SCH ×2 (00:49→21:36)
[2020-05-16] MEDS: IPRATROPIUM/ALBUTEROL 0.5-3(2.5)MG/3ML NEB HHN SCH ×6 (00:56→20:51)
[2020-05-16] MEDS: SENNOSIDES/DOCUSATE SOD 8.6/50MG TABLET GT SCH ×2 (06:37→17:34)
[2020-05-16] MEDS: LEVETIRACETAM 500MG/5ML CUP PO SCH ×2 (06:37→17:34)
[2020-05-16] MEDS: HYDRALAZINE HCL 50MG TABLET GT SCH ×3 (06:37→21:35)
[2020-05-16] MEDS: BLOOD SUGAR DIAGNOSTIC STRIP TEST SCH ×4 (07:43→21:35)
[2020-05-16 07:51] LABS: HEMATOCRIT. 22.8 % (42.0-52.0); HEMOGLOBIN. 7.5 g/dL (14.0-18.0); MEAN CORPUSCULAR VOLUME 96.7 fL (80.0-94.0); MEAN PLATELET VOLUME 8.9 fl (7.4-10.4); PLATELET 355 x1000/uL (130-400); RED BLOOD CELL COUNT 2.36 mill/uL (4.7-6.1); RED CELL DISTRIBUTION WIDTH 16.5 % (11.6-14.6)
[2020-05-16] MEDS: INSULIN LISPRO 100 UNITS/ML SUBCUT SCH ×4 (08:46→21:34)
[2020-05-16] MEDS: DOCUSATE SODIUM SUGAR FREE 100MG/10ML UDC GT SCH ×2 (09:16→17:34)
[2020-05-16] MEDS: MEMANTINE HCL 5MG TABLET GT SCH (09:16)
[2020-05-16 15:57] LABS: HEMATOCRIT 28.6 % (42.0-52.0); HEMOGLOBIN 9.5 g/dL (14.0-18.0)
[2020-05-16 16:09] LABS: INR 1.2
[2020-05-17] VITALS: BP 124/56
[2020-05-17] MEDS: IPRATROPIUM/ALBUTEROL 0.5-3(2.5)MG/3ML NEB HHN SCH ×6 (01:14→21:08)
[2020-05-17 03:59] LABS: PLATELET ESTIMATE NORMAL
[2020-05-17 04:00] VITALS: BP 127/66
[2020-05-17] MEDS: LEVETIRACETAM 500MG/5ML CUP PO SCH ×2 (05:10→17:33)
[2020-05-17] MEDS: SENNOSIDES/DOCUSATE SOD 8.6/50MG TABLET GT SCH ×2 (05:10→17:34)
[2020-05-17] MEDS: HYDRALAZINE HCL 50MG TABLET GT SCH ×3 (05:11→22:20)
[2020-05-17] MEDS: BLOOD SUGAR DIAGNOSTIC STRIP TEST SCH ×4 (05:48→21:00)
[2020-05-17] MEDS: INSULIN LISPRO 100 UNITS/ML SUBCUT SCH ×4 (06:00→22:43)
[2020-05-17 06:35] LABS: BASOPHILS % 0.3 % (0.0-2.0); EOSINOPHILS % 0.7 % (0.0-5.0); HEMATOCRIT. 25.6 % (42.0-52.0); HEMOGLOBIN. 8.5 g/dL (14.0-18.0); LYMPHOCYTES % 9.7 % (20.0-50.0); MEAN PLATELET VOLUME 9.1 fl (7.4-10.4); MONOCYTES % 6.5 % (2.0-8.0); NEUTROPHILS % 82.8 % (40.0-76.0); PLATELET 373 x1000/uL (130-400); RED BLOOD CELL COUNT 2.67 mill/uL (4.7-6.1); RED CELL DISTRIBUTION WIDTH 16.1 % (11.6-14.6)
[2020-05-17 08:00] VITALS: BP 129/64
[2020-05-17] MEDS: MEMANTINE HCL 5MG TABLET GT SCH (08:48)
[2020-05-17] MEDS: DOCUSATE SODIUM SUGAR FREE 100MG/10ML UDC GT SCH ×2 (08:48→16:30)
[2020-05-17 12:00] VITALS: BP 135/61
[2020-05-17 16:00] VITALS: BP 130/80
[2020-05-17] MEDS: ACETAMINOPHEN 650MG/20.3ML UDC GT PRN (16:31)
[2020-05-17 20:00] VITALS: BP 139/65
[2020-05-17] MEDS: FAMOTIDINE 20MG TABLET GT SCH (22:19)
[2020-05-18] VITALS: BP 139/72
[2020-05-18] MEDS: IPRATROPIUM/ALBUTEROL 0.5-3(2.5)MG/3ML NEB HHN SCH ×5 (00:54→17:06)
[2020-05-18 04:00] VITALS: BP 127/70
[2020-05-18] MEDS: LEVETIRACETAM 500MG/5ML CUP PO SCH ×2 (06:23→18:52)
[2020-05-18] MEDS: HYDRALAZINE HCL 50MG TABLET GT SCH ×2 (06:23→14:01)
[2020-05-18] MEDS: SENNOSIDES/DOCUSATE SOD 8.6/50MG TABLET GT SCH ×2 (06:23→18:52)
[2020-05-18] MEDS: BLOOD SUGAR DIAGNOSTIC STRIP TEST SCH ×3 (07:18→17:20)
[2020-05-18 08:00] VITALS: BP 125/56
[2020-05-18] MEDS ORDERED: FOLIC ACID/VITAMIN B COMP W-C TABLET GT SCH (09:00)
[2020-05-18 09:14] LABS: BASOPHILS % 0.4 % (0.0-2.0); EOSINOPHILS % 1.2 % (0.0-5.0); HEMATOCRIT. 24.9 % (42.0-52.0); HEMOGLOBIN. 8.4 g/dL (14.0-18.0); LYMPHOCYTES % 8.2 % (20.0-50.0); MEAN CORPUSCULAR HEMOGLOBIN 32.4 pg (28.0-32.0); MEAN CORPUSCULAR VOLUME 96.1 fL (80.0-94.0); MEAN PLATELET VOLUME 8.7 fl (7.4-10.4); MONOCYTES % 4.2 % (2.0-8.0); PLATELET 365 x1000/uL (130-400); RED BLOOD CELL COUNT 2.59 mill/uL (4.7-6.1); RED CELL DISTRIBUTION WIDTH 15.9 % (11.6-14.6)
[2020-05-18] MEDS: DOCUSATE SODIUM SUGAR FREE 100MG/10ML UDC GT SCH ×2 (09:18→18:52)
[2020-05-18] MEDS: MEMANTINE HCL 5MG TABLET GT SCH (09:18)
[2020-05-18] MEDS: INSULIN LISPRO 100 UNITS/ML SUBCUT SCH ×3 (09:18→18:52)
[2020-05-18] MEDS: FERROUS SULFATE 300MG/5ML UDC GT SCH ×2 (09:25→18:52)
[2020-05-18 09:59] LABS: CHLORIDE 98 mEq/L (98-107)
[2020-05-18] MEDS: ACETAMINOPHEN 650MG/20.3ML UDC GT PRN (11:04)
[2020-05-18 12:00] VITALS: BP 138/60
[2020-05-18 16:00] VITALS: BP 129/65
[2020-05-18 16:15] VITALS: BP 138/60
[2020-05-18] MEDS ORDERED: EPOETIN ALFA-EPBX 10,000 UNIT/ML VIAL SUBCUT SCH (21:00)
== END 2020-05-18 18:50 | DRG 811 ==
LOC: ER 09:10 → 6EST 11:48 → EDBEDREQ 11:55 → EDBEDREQTM 11:55 → ENRESERV 12:29
PROVIDERS: ADMIT Internal Medicine Geriatric Medicine; ATTEND Internal Medicine Geriatric Medicine
PROC: 30233N1 Transfusion of Nonautologous Red Blood Cells into Peripheral Vein, Percutaneous Approach (ICD-10-PCS; principal; 2020-05-15)
PROC: 5A1D70Z Performance of Urinary Filtration, Intermittent, Less than 6 Hours Per Day (ICD-10-PCS; 2020-05-15)
DX: D50.9 Iron deficiency anemia, unspecified (principal); N18.6 End stage renal disease; E87.1 Hypo-osmolality and hyponatremia; I12.0 Hypertensive chronic kidney disease with stage 5 chronic kidney disease or end stage renal disease; E11.22 Type 2 diabetes mellitus with diabetic chronic kidney disease; E87.6 Hypokalemia; F03.90 Unspecified dementia, unspecified severity, without behavioral disturbance, psychotic disturbance, mood disturbance, and anxiety; Z86.16 Personal history of COVID-19; J44.9 Chronic obstructive pulmonary disease, unspecified; R62.7 Adult failure to thrive; K57.90 Diverticulosis of intestine, part unspecified, without perforation or abscess without bleeding; Z79.4 Long term (current) use of insulin; Z79.899 Other long term (current) drug therapy; Z85.46 Personal history of malignant neoplasm of prostate; Z86.73 Personal history of transient ischemic attack (TIA), and cerebral infarction without residual deficits; Z90.49 Acquired absence of other specified parts of digestive tract; Z93.1 Gastrostomy status; Z99.2 Dependence on renal dialysis; Z98.49 Cataract extraction status, unspecified eye; Z87.891 Personal history of nicotine dependence; Z68.22 Body mass index [BMI] 22.0-22.9, adult
CPT/HCPCS: 36415; 36600; 71045; 80048; 80053; 82270; 82375; 82805; 82962; 83036; 83540; 83550; 83880; 84484; 85014; 85018; 85025; 85044; 85049; 85384; 86850; 86900; 86920; 93005; 94640; 99285; A6261; J1815; P9016

== ENCOUNTER 2020-05-29 08:34 | Inpatient (IN) | payer MEDICARE, MEDICAID ==
[~2020-05-29] VITALS: Ht 185.4 cm; Wt 55.8 kg
[2020-05-29] VITALS (7 sets, daily range): BP systolic 136–157; BP diastolic 63–81
[~2020-05-29 08:34] MED LIST changes: -BICA50TA48 MT; -BICA50TA7 PO; -CHOL400D7 PO; -CITA10TA9 MT; -FAMO20TA8 PO; -IPRA4AER INH; -LEVE500T19 PO; -MEMA5TAB7 MT; -METO100T16 MT; -ONDA4TAB11 PO; -SEVE800T8 PO
[2020-05-29 09:40] LABS: BASOPHILS % 0.6 % (0.0-2.0); EOSINOPHILS % 3.2 % (0.0-5.0); LYMPHOCYTES % 10.5 % (20.0-50.0); MEAN CORPUSCULAR HEMOGLOBIN 32.5 pg (28.0-32.0); MEAN CORPUSCULAR VOLUME 98.4 fL (80.0-94.0); MEAN PLATELET VOLUME 8.3 fl (7.4-10.4); MONOCYTES % 8.7 % (2.0-8.0); PLATELET 349 x1000/uL (130-400); RED BLOOD CELL COUNT 2.14 mill/uL (4.7-6.1)
[2020-05-29 09:48] LABS: HEMOGLOBIN. 6.9 g/dL (14.0-18.0)
[2020-05-29 10:18] LABS: CHLORIDE 98 mEq/L (98-107)
[2020-05-29 10:44] LABS: INR 1.2; PROTHROMBIN TIME 12.9 sec (9.6-11.0)
[2020-05-29] MEDS ORDERED: MAGNESIUM/ALUMINUM HYDROXIDE/SIMETHICONE 30ML UDC PO PRN (15:15)
[2020-05-29] MEDS ORDERED: IPRATROPIUM/ALBUTEROL 0.5-3(2.5)MG/3ML NEB HHN PRN (15:15)
[2020-05-29] MEDS ORDERED: DEXTROSE 50% WATER 50ML SYRINGE IV PRN (15:15)
[2020-05-29] MEDS ORDERED: PANTOPRAZOLE 40MG DR TABLET PO SCH (15:15)
[2020-05-29] MEDS ORDERED: ONDANSETRON HCL 4MG/2ML INJ IV PRN (15:15)
[2020-05-29] MEDS ORDERED: CLONIDINE 0.1MG TABLET GT PRN (15:15)
[2020-05-29] MEDS: FERROUS SULFATE 300MG/5ML UDC GT SCH (16:31)
[2020-05-29] MEDS: INSULIN LISPRO 100 UNITS/ML SUBCUT SCH ×2 (16:31→21:00)
[2020-05-29] MEDS: LEVETIRACETAM 500MG/5ML CUP GT SCH (16:31)
[2020-05-29] MEDS: ACETAMINOPHEN 650MG/20.3ML UDC GT PRN (16:37)
[2020-05-29] MEDS: LANSOPRAZOLE 30MG DR CAPSULE GT SCH (16:37)
[2020-05-29] MEDS: BLOOD SUGAR DIAGNOSTIC STRIP TEST SCH ×2 (16:38→21:02)
[2020-05-29] MEDS: DOCUSATE SODIUM 100MG CAPSULE GT SCH (16:38)
[2020-05-29] MEDS: ZINC OXIDE 20% OINT 30GM TOP SCH ×2 (17:00→22:21)
[2020-05-29] MEDS ORDERED: INSULIN LISPRO 100 UNITS/ML SUBCUT SCH (17:50)
[2020-05-29] MEDS: ASCORBIC ACID 250 MG TABLET GT SCH (21:02)
[2020-05-29] MEDS: IPRATROPIUM/ALBUTEROL 0.5-3(2.5)MG/3ML NEB HHN SCH (21:27)
[2020-05-30] VITALS (7 sets, daily range): BP systolic 134–169; BP diastolic 69–78
[2020-05-30 00:30] LABS: HEMATOCRIT 26.4 % (42.0-52.0); HEMOGLOBIN 8.9 g/dL (14.0-18.0)
[2020-05-30] MEDS: IPRATROPIUM/ALBUTEROL 0.5-3(2.5)MG/3ML NEB HHN SCH ×7 (01:01→22:10)
[2020-05-30] MEDS: LEVETIRACETAM 500MG/5ML CUP GT SCH ×2 (05:06→17:08)
[2020-05-30] MEDS: ZINC OXIDE 20% OINT 30GM TOP SCH ×4 (05:08→22:02)
[2020-05-30] MEDS: BLOOD SUGAR DIAGNOSTIC STRIP TEST SCH ×4 (06:22→21:32)
[2020-05-30] MEDS: LANSOPRAZOLE 30MG DR CAPSULE GT SCH (06:22)
[2020-05-30] MEDS: INSULIN LISPRO 100 UNITS/ML SUBCUT SCH ×5 (07:50→21:00)
[2020-05-30] MEDS: FUROSEMIDE 40MG TABLET GT SCH (08:26)
[2020-05-30] MEDS: FOLIC ACID/VITAMIN B COMP W-C TABLET GT SCH (08:26)
[2020-05-30] MEDS: LOSARTAN POTASSIUM 50 MG TABLET GT SCH (08:26)
[2020-05-30] MEDS: FERROUS SULFATE 300MG/5ML UDC GT SCH ×3 (08:26→17:07)
[2020-05-30] MEDS: ZINC SULFATE 220 MG ( 50 ) CAPSULE GT SCH (08:26)
[2020-05-30] MEDS: DOCUSATE SODIUM 100MG CAPSULE GT SCH ×2 (08:27→16:22)
[2020-05-30] MEDS: ASCORBIC ACID 250 MG TABLET GT SCH ×2 (09:00→21:45)
[2020-05-30 11:52] LABS: BASOPHILS % 0.4 % (0.0-2.0); EOSINOPHILS % 1.9 % (0.0-5.0); HEMATOCRIT. 27.7 % (42.0-52.0); HEMOGLOBIN. 9.2 g/dL (14.0-18.0); LYMPHOCYTES % 7.1 % (20.0-50.0); MEAN CORPUSCULAR HEMOGLOBIN 31.2 pg (28.0-32.0); MEAN CORPUSCULAR VOLUME 93.9 fL (80.0-94.0); MEAN PLATELET VOLUME 7.9 fl (7.4-10.4); MONOCYTES % 9.3 % (2.0-8.0); NEUTROPHILS % 81.3 % (40.0-76.0); PLATELET 342 x1000/uL (130-400); RED BLOOD CELL COUNT 2.95 mill/uL (4.7-6.1); RED CELL DISTRIBUTION WIDTH 15.8 % (11.6-14.6)
[2020-05-31] VITALS (7 sets, daily range): BP systolic 146–168; BP diastolic 73–79
[2020-05-31] MEDS: IPRATROPIUM/ALBUTEROL 0.5-3(2.5)MG/3ML NEB HHN SCH ×5 (01:43→16:45)
[2020-05-31] MEDS: ZINC OXIDE 20% OINT 30GM TOP SCH ×3 (06:00→19:16)
[2020-05-31] MEDS: LEVETIRACETAM 500MG/5ML CUP GT SCH ×2 (06:15→18:57)
[2020-05-31] MEDS: LANSOPRAZOLE 30MG DR CAPSULE GT SCH (06:31)
[2020-05-31] MEDS: BLOOD SUGAR DIAGNOSTIC STRIP TEST SCH ×3 (06:31→17:20)
[2020-05-31 06:53] LABS: BASOPHILS % 0.3 % (0.0-2.0); EOSINOPHILS % 1.1 % (0.0-5.0); HEMATOCRIT. 26.1 % (42.0-52.0); HEMOGLOBIN. 8.7 g/dL (14.0-18.0); LYMPHOCYTES % 11.7 % (20.0-50.0); MEAN CORPUSCULAR HEMOGLOBIN 31.3 pg (28.0-32.0); MEAN CORPUSCULAR VOLUME 93.9 fL (80.0-94.0); MEAN PLATELET VOLUME 8.3 fl (7.4-10.4); NEUTROPHILS % 76.9 % (40.0-76.0); PLATELET 322 x1000/uL (130-400); RED BLOOD CELL COUNT 2.79 mill/uL (4.7-6.1); RED CELL DISTRIBUTION WIDTH 16.3 % (11.6-14.6)
[2020-05-31] MEDS: DOCUSATE SODIUM 100MG CAPSULE GT SCH ×2 (09:43→19:17)
[2020-05-31] MEDS: FOLIC ACID/VITAMIN B COMP W-C TABLET GT SCH (09:43)
[2020-05-31] MEDS: FUROSEMIDE 40MG TABLET GT SCH (09:43)
[2020-05-31] MEDS: ZINC SULFATE 220 MG ( 50 ) CAPSULE GT SCH (09:44)
[2020-05-31] MEDS: LOSARTAN POTASSIUM 50 MG TABLET GT SCH (09:44)
[2020-05-31] MEDS: INSULIN LISPRO 100 UNITS/ML SUBCUT SCH ×3 (09:45→19:03)
[2020-05-31] MEDS: FERROUS SULFATE 300MG/5ML UDC GT SCH ×3 (10:32→18:58)
[2020-05-31] MEDS: ACETAMINOPHEN 650MG/20.3ML UDC GT PRN (11:02)
[2020-05-31] MEDS: ASCORBIC ACID 250 MG TABLET GT SCH (11:36)
== END 2020-05-31 20:10 | DRG 291 ==
LOC: ER 08:34 → 6WST 10:24 → EDBEDREQ 10:35 → EDBEDREQTM 10:35 → ENRESERV 11:51
PROVIDERS: ADMIT Internal Medicine Geriatric Medicine; ATTEND Internal Medicine Geriatric Medicine
PROC: 30233N1 Transfusion of Nonautologous Red Blood Cells into Peripheral Vein, Percutaneous Approach (ICD-10-PCS; principal; 2020-05-29)
PROC: 5A1D70Z Performance of Urinary Filtration, Intermittent, Less than 6 Hours Per Day (ICD-10-PCS; 2020-05-30)
DX: I13.2 Hypertensive heart and chronic kidney disease with heart failure and with stage 5 chronic kidney disease, or end stage renal disease (principal); N18.6 End stage renal disease; E46 Unspecified protein-calorie malnutrition; E87.1 Hypo-osmolality and hyponatremia; J96.10 Chronic respiratory failure, unspecified whether with hypoxia or hypercapnia; Z68.1 Body mass index [BMI] 19.9 or less, adult; D63.1 Anemia in chronic kidney disease; E11.22 Type 2 diabetes mellitus with diabetic chronic kidney disease; F03.90 Unspecified dementia, unspecified severity, without behavioral disturbance, psychotic disturbance, mood disturbance, and anxiety; G40.909 Epilepsy, unspecified, not intractable, without status epilepticus; I25.10 Atherosclerotic heart disease of native coronary artery without angina pectoris; I50.9 Heart failure, unspecified; J44.9 Chronic obstructive pulmonary disease, unspecified; R13.10 Dysphagia, unspecified; R62.7 Adult failure to thrive; Z66 Do not resuscitate; Z86.16 Personal history of COVID-19; F32.9 Major depressive disorder, single episode, unspecified; Z79.4 Long term (current) use of insulin; Z79.899 Other long term (current) drug therapy; Z85.46 Personal history of malignant neoplasm of prostate; Z86.73 Personal history of transient ischemic attack (TIA), and cerebral infarction without residual deficits; Z86.79 Personal history of other diseases of the circulatory system; Z90.49 Acquired absence of other specified parts of digestive tract; Z93.1 Gastrostomy status; Z99.2 Dependence on renal dialysis
CPT/HCPCS: 36415; 71045; 80048; 80053; 82270; 82962; 85014; 85018; 85025; 86850; 86900; 86920; 93005; 94640; 99285; A6261; J1815; P9016

== ENCOUNTER 2020-07-03 13:14 | Emergency (ER) | payer MEDICARE, MEDICAID ==
[~2020-07-03] VITALS: Ht 180.3 cm; Wt 82.0 kg
[2020-07-03] MEDS ORDERED: CLONIDINE 0.1MG TABLET PO PRN (14:15)
[2020-07-03] MEDS ORDERED: ONDANSETRON HCL 4MG/2ML INJ IV PRN (14:15)
[2020-07-03] MEDS ORDERED: ACETAMINOPHEN 650MG/20.3ML UDC GT PRN (14:15)
[2020-07-03] MEDS ORDERED: MORPHINE SULFATE 2 MG/ML CPJ (NOT FOR IM USE) IV PRN (14:15)
[2020-07-03 14:57] LABS: BASOPHILS % 0.7 % (0.0-2.0); EOSINOPHILS % 2.2 % (0.0-5.0); HEMATOCRIT. 22.4 % (42.0-52.0); HEMOGLOBIN. 7.7 g/dL (14.0-18.0); LYMPHOCYTES % 17.5 % (20.0-50.0); MEAN CORPUSCULAR HEMOGLOBIN 33.5 pg (28.0-32.0); MEAN CORPUSCULAR VOLUME 98.1 fL (80.0-94.0); MEAN PLATELET VOLUME 8.8 fl (7.4-10.4); MONOCYTES % 7.7 % (2.0-8.0); NEUTROPHILS % 71.9 % (40.0-76.0); PLATELET 275 x1000/uL (130-400); RED BLOOD CELL COUNT 2.28 mill/uL (4.7-6.1); RED CELL DISTRIBUTION WIDTH 18.9 % (11.6-14.6)
[2020-07-03 15:01] LABS: CHLORIDE 99 mEq/L (98-107)
[2020-07-03] MEDS ORDERED: VANCOMYCIN 1500MG in DEXTROSE 5% WATER 250ML IV NR (16:00)
[2020-07-03 16:50] LABS: INR 1.2; PARTIAL THROMBOPLASTIN TIME 29.7 sec (23.4-31.0)
[2020-07-03] MEDS ORDERED: LANTHANUM CARBONATE 500MG CHEW TABLET PO SCH (17:00)
[2020-07-03] MEDS ORDERED: DEXTROSE 50% WATER 50ML SYRINGE IV PRN (17:45)
[2020-07-03] MEDS: INSULIN LISPRO (MEDIUM DOSE) 100 UNITS/ML SUBCUT SCH ×2 (19:30→21:00)
[2020-07-03] MEDS ORDERED: BLOOD SUGAR DIAGNOSTIC STRIP TEST SCH (21:00)
[2020-07-03] MEDS ORDERED: DOXAZOSIN MESYLATE 2MG TABLET PO SCH (21:00)
[2020-07-03] MEDS ORDERED: LEVETIRACETAM 500MG TABLET PO SCH (21:00)
[2020-07-04 02:28] VITALS: BP 119/78
[2020-07-04] MEDS ORDERED: FOLIC ACID/VITAMIN B COMP W-C TABLET PO SCH (09:00)
[2020-07-04] MEDS ORDERED: NIFEDIPINE XL 90MG TAB PO SCH (09:00)
[2020-07-04] MEDS ORDERED: LOSARTAN POTASSIUM 100 MG TABLET PO SCH (09:00)
== END 2020-07-04 02:55 ==
LOC: ER 13:14 → CANBEDREQ 07-04 04:03
DX: T82.898A Other specified complication of vascular prosthetic devices, implants and grafts, initial encounter (principal); E11.22 Type 2 diabetes mellitus with diabetic chronic kidney disease; I13.2 Hypertensive heart and chronic kidney disease with heart failure and with stage 5 chronic kidney disease, or end stage renal disease; I50.9 Heart failure, unspecified; J18.9 Pneumonia, unspecified organism; N18.6 End stage renal disease; D63.1 Anemia in chronic kidney disease; J44.9 Chronic obstructive pulmonary disease, unspecified; F03.90 Unspecified dementia, unspecified severity, without behavioral disturbance, psychotic disturbance, mood disturbance, and anxiety; L89.629 Pressure ulcer of left heel, unspecified stage; L89.619 Pressure ulcer of right heel, unspecified stage; Z85.46 Personal history of malignant neoplasm of prostate; Z79.4 Long term (current) use of insulin; Z20.822 Contact with and (suspected) exposure to COVID-19; Z99.2 Dependence on renal dialysis; Y84.1 Kidney dialysis as the cause of abnormal reaction of the patient, or of later complication, without mention of misadventure at the time of the procedure; Y92.018 Other place in single-family (private) house as the place of occurrence of the external cause
CPT/HCPCS: 36415; 71045; 73090; 80053; 82962; 83605; 83880; 84145; 84484; 85025; 85610; 85730; 87040; 93005; 93970; 93971; 96365; 96366; 99285; C9803; J3370; J7060; U0003

== ENCOUNTER 2020-11-15 14:56 | Emergency (ER) | payer MEDICARE, MEDICAID ==
[~2020-11-15] VITALS: Ht 182.9 cm; Wt 50.0 kg
[~2020-11-15 14:56] MED LIST changes: +ASCO500C18 PO; +ASPI-1406 PO; +CHOL100046 PO; +CITA10TA16 PO; +DIPH25TA24 PO; +EPOE200014 SQ; +FAMO20TA8 PO; +LEVE10006 PO; +LOSA100T32 PO; +METO-539 PO; +MONT10TA32 PO; +REN800 PO
[2020-11-15 16:24] LABS: EOSINOPHILS % 1.4 % (0.0-5.0); HEMATOCRIT. 22.3 % (42.0-52.0); HEMOGLOBIN. 7.8 g/dL (14.0-18.0); LYMPHOCYTES % 19.4 % (20.0-50.0); MEAN CORPUSCULAR HEMOGLOBIN 35.7 pg (28.0-32.0); MEAN CORPUSCULAR VOLUME 101.4 fL (80.0-94.0); MONOCYTES % 7.4 % (2.0-8.0); NEUTROPHILS % 70.8 % (40.0-76.0); PLATELET 257 x1000/uL (130-400); RED BLOOD CELL COUNT 2.19 mill/uL (4.7-6.1); RED CELL DISTRIBUTION WIDTH 16.5 % (11.6-14.6)
[2020-11-15 16:29] LABS: CHLORIDE 102 mEq/L (98-107)
[2020-11-15 16:31] LABS: INR 1.2; PROTHROMBIN TIME 12.4 sec (9.6-11.0)
[2020-11-15 23:47] VITALS: BP 163/81
== END 2020-11-15 23:58 ==
LOC: ER 15:02
DX: D64.9 Anemia, unspecified (principal); I12.0 Hypertensive chronic kidney disease with stage 5 chronic kidney disease or end stage renal disease; E11.22 Type 2 diabetes mellitus with diabetic chronic kidney disease; N18.6 End stage renal disease; Z99.2 Dependence on renal dialysis; Z79.899 Other long term (current) drug therapy; Z88.6 Allergy status to analgesic agent
CPT/HCPCS: 36415; 71045; 80053; 82270; 83880; 84484; 85025; 86850; 86900; 93005; 99285

== ENCOUNTER 2020-12-10 19:04 | Emergency (ER) | payer MEDICARE, MEDICAID ==
[~2020-12-10] VITALS: Ht 177.8 cm; Wt 69.0 kg
[2020-12-10 20:39] LABS: BASOPHILS % 0.7 % (0.0-2.0); EOSINOPHILS % 1.1 % (0.0-5.0); HEMOGLOBIN. 8.3 g/dL (14.0-18.0); LYMPHOCYTES % 15.1 % (20.0-50.0); MEAN CORPUSCULAR HEMOGLOBIN 33.1 pg (28.0-32.0); MEAN CORPUSCULAR VOLUME 99.3 fL (80.0-94.0); MEAN PLATELET VOLUME 8.5 fl (7.4-10.4); MONOCYTES % 10.5 % (2.0-8.0); NEUTROPHILS % 72.6 % (40.0-76.0); PLATELET 264 x1000/uL (130-400); RED BLOOD CELL COUNT 2.52 mill/uL (4.7-6.1); RED CELL DISTRIBUTION WIDTH 19.2 % (11.6-14.6)
[2020-12-10 20:44] LABS: CHLORIDE 100 mEq/L (98-107)
[2020-12-10 20:45] LABS: INR 1.2; PROTHROMBIN TIME 13.2 sec (9.6-11.0)
[2020-12-11] VITALS: BP 112/71
== END 2020-12-11 01:19 ==
LOC: ER 19:04
DX: I11.0 Hypertensive heart disease with heart failure (principal); I50.9 Heart failure, unspecified; E11.22 Type 2 diabetes mellitus with diabetic chronic kidney disease; I12.0 Hypertensive chronic kidney disease with stage 5 chronic kidney disease or end stage renal disease; N18.6 End stage renal disease; Z79.899 Other long term (current) drug therapy
CPT/HCPCS: 36415; 80053; 85025; 86850; 86900; 99283